=== PATIENT | female | born 1935 | race Caucasian/White ===

== ENCOUNTER 2017-02-22 17:27 | Inpatient (IN) | payer MEDICARE ==
[~2017-02-22] VITALS: Ht 160 cm; Wt 85.3 kg
--- NOTE | 2017-02-22 17:27 | NUR ---
[facility]LER PERES FROM [facility] PULLED OUT GTUBE SINCE 10 AM PER SNF. NAD NOTED. PT ON VENTILATOR, RT AT BEDSIDE. MD AT BEDSIDE. PT PLACED ON MONITOR.
[2017-02-22 17:45] LABS: BASOPHILS # (AUTO) 0.1 /CMM (0.0-0.2); BASOPHILS % (AUTO) 0.3 % (0.0-2.0); EOSINOPHILS # (AUTO) 0.6 /CMM (0.0-0.7); EOSINOPHILS % (AUTO) 3.5 % (0.0-6.0); HEMATOCRIT 30 % (33-45); HEMOGLOBIN 9.8 g/dL (11.5-14.8); LYMPHOCYTES # (AUTO) 1.3 /CMM (0.8-4.8); LYMPHOCYTES % (AUTO) 7.8 % (20.0-44.0); MEAN CORPUSCULAR HEMOGLOBIN 31 PG (26.0-33.0); MEAN CORPUSCULAR HGB CONC 32 g/dl (31.0-36.0); MEAN CORPUSCULAR VOLUME 94 fL (82-100); MONOCYTES # (AUTO) 0.8 /CMM (0.1-1.30); MONOCYTES % (AUTO) 4.6 % (2.0-12.0); NEUTROPHILS % (AUTO) 83.8 % (43.0-81.0); PLATELET COUNT (AUTO) 448 /CMM (150-450); RED BLOOD CELL COUNT(AUTO) 3.21 MIL/uL (4.0-5.2); WHITE BLOOD COUNT (AUTO) 16.8 K/uL (4.3-11.0)
[2017-02-22 17:55] LABS: CALCIUM, SERUM 9.7 mg/dL (8.5-10.1); CARBON DIOXIDE 27 mmol/L (21-32); CHLORIDE 100 mmol/L (98-107); CREATININE 2.3 mg/dL (0.6-1.3); GLUCOSE 90 mg/dL (74-106); POTASSIUM 3.1 mmol/L (3.5-5.1); SODIUM SERUM 134 mmol/L (136-145); UREA NITROGEN, BLOOD 23 mg/dL (7-18)
[2017-02-22 17:56] VITALS: BP 141/67
[2017-02-22 17:59] LABS: INR 1.03 (0.87-1.13); PROTHROMBIN TIME 10.7 SECS (9.5-12.7)
[2017-02-22] MEDS ORDERED: IV NS 0.9% 500 ML BAG IV ONE (18:00)
[2017-02-22 18:01] LABS: ALANINE AMINOTRANSFERASE 14 U/L (12-78); ALBUMIN 2.6 g/dL (3.4-5.0); ALKALINE PHOSPHATASE 101 U/L (46-116); ASPARTATE AMINOTRANSFERASE 23 U/L (15-37); BILIRUBIN,DIRECT 0.1 mg/dL (0.0-0.2); BILIRUBIN,TOTAL 0.5 mg/dL (0.2-1.0); TOTAL PROTEIN, SERUM 8.1 g/dL (6.4-8.2)
[2017-02-22] MEDS ORDERED: FAMO20TA8 GT (18:22)
[2017-02-22] MEDS ORDERED: CLON0.5T GT (18:22)
[2017-02-22] MEDS ORDERED: BLOO-668 IN (18:22)
[2017-02-22] MEDS ORDERED: LORA0.5T GT (18:22)
[2017-02-22] MEDS ORDERED: DIPH25CA6 GT (18:22)
[2017-02-22] MEDS ORDERED: POLY17PO4 GT (18:22)
[2017-02-22] MEDS ORDERED: FLUO-120 GT (18:22)
[2017-02-22] MEDS ORDERED: AMIN30LI4 GT (18:22)
[2017-02-22] MEDS ORDERED: INSU100I4 SQ (18:22)
[2017-02-22] MEDS ORDERED: FOLI1TAB16 GT (18:22)
[2017-02-22] MEDS ORDERED: OLAN2.5T3 GT (18:22)
[2017-02-22] MEDS ORDERED: ACET160S2 GT (18:22)
[2017-02-22] MEDS ORDERED: FOLI0.8T23 GT (18:22)
[2017-02-22] MEDS ORDERED: IPRA3AMP IH (18:22)
[2017-02-22] MEDS ORDERED: ACID1TAB12 GT (18:22)
--- NOTE | 2017-02-22 18:30 | NUR ---
RE-INSERTED IV ON R AC AFTER PT PULLING IT OUT. PATENT AND FLUSHING WELL.
--- NOTE | 2017-02-22 18:44 | NUR ---
CALLED [facility], BULLION WEIGHER WAS PAGED.
--- NOTE | 2017-02-22 19:10 | NUR ---
assumed care: pt sitting in bed, eyes open spontaneous, ventilated pt o2 40%, tV 600, peep 5.0, unlabored, NAD noted at this time, updated on plan of care
--- NOTE | 2017-02-22 19:40 | NUR ---
REPORT CALLED TO [facility] ETIENNE. WILL TRANSPORT PT VIA ACLS PROTOCOL.
[2017-02-22 20:00] VITALS: BP 139/80
--- NOTE | 2017-02-22 20:00 | NUR ---
RN ADMITTING TELE NOTES RECEIVED 81 YR OLD FEMALE FROM ER, ON VDRF, AC 10, TV 600, FIO2 40 AND PEEP OF 5, AOX1, NON VERBAL ANXIOUS PULLING ON LIFE SUSTAINING EQUIPMENT AND SCRATCHING GENERAL BODY CAUSING SKIN IRRITATION. NO SIGN OF FACIAL GRIMANCING NOTED, VS STABLE, WITH RCW HD CATH, WELL SECURED PULLED OUT RAC 18 G UPON ADMITTION, RE INSERTED ON LH 22 G AND RH 22 G, WELL SECURED AND PATENT. HEAD TO TOE ASSESSMENT DONE, WITH SKIN ISSUES NOTED AND PICTURES TAKEN AND FILED. PT S/P GT DISLODGEMENT DR OTERO NOTIFIED AND ADMITTING ORDERS OBTAINED. ON NS @50 ML/HR WELL KETAN NO S/S OF FLUID VOL EXCESS, NO INFILTRATION. FAMILY DAUGHTER NOTIFIED. PT PLACED ON SOFT BI WRIST RESTRAIN AND RELEASED PER PROTOCOL FOR PROPER ROM AND CIRCULATION. ALL LAB ORDERS CARRIED WELL GLUOCOSE MONITORING ORDERED. SAFETY MEASURES IN PLACE, ALL NEEDS MET, WILL TO MONITOR.
[2017-02-22 20:07] VITALS: BP 130/76
--- NOTE | 2017-02-22 21:00 | NUR ---
UNDERGROUND SUPERVISOR NOTES RECEIVED ORDER FROM ER, FROM DR. Anh QUINONEZ FOR THE PATIENT'S EMPIRIC IV ATB. ORDER NOTED AND CARRIED OUT. WILL ADMINISTER ORDERED.
[2017-02-22] MEDS ORDERED: LEVOFLOXACIN 750 MG /D5W 150ML 150 ML IV ONE (21:21)
[2017-02-22] MEDS ORDERED: CLINDAMYCIN IV RTU IN D5W 900 MG/50 ML PIGGYBACK IV ONE (21:30)
[2017-02-22] MEDS ORDERED: AZTREONAM 2 G in IV NS 0.9% 100 ML IV ONE (21:30)
[2017-02-22] MEDS ORDERED: LEVOFLOXACIN 750 MG /D5W 150ML 750 MG in PREMIX 1 EA IV ONE (21:30)
[2017-02-22] MEDS ORDERED: ZIPRASIDONE MESYLATE 20 MG/VIAL VIAL IM PRN (22:30)
[2017-02-22] MEDS ORDERED: DEXTROSE 50%-WATER 50 ML DISP.SYRIN IV PRN (22:30)
[2017-02-22] MEDS ORDERED: INSULIN REGULAR, HUMAN 100 UNIT/ML 3 ML VIAL SQ PRN (22:30)
[2017-02-22] MEDS ORDERED: AZTREONAM 1 G VIAL ONE (22:45)
[2017-02-22] MEDS ORDERED: CLINDAMYCIN 900 MG/6 ML VIAL ONE (22:45)
[2017-02-22] MEDS ORDERED: diphenhydrAMINE HCL 50 MG/ML VIAL ONE (23:25)
[2017-02-22] MEDS: diphenhydrAMINE HCL 50 MG/ML VIAL IV PRN (23:26)
[2017-02-22] MEDS: IV NS 0.9% 1,000 ML IV PRN (23:26)
[2017-02-22] MEDS: BLOOD SUGAR DIAGNOSTIC 1 EACH STRIP IN SCH (23:32)
[2017-02-23] VITALS: BP 109/59
[2017-02-23 04:00] VITALS: BP_SYST 108; BP_SYST 109; BP_DIAS 59; BP_DIAS 63
--- NOTE | 2017-02-23 06:23 | NUR ---
CABLE INSTALLER REPAIRER CLOSING NOTE ENDORSED PT ASLEEP IN BED HOB ELEVATED, NO SIGN OF DISTRESS, ALL ADMITTING ORDERS CARRIED OUT, WILL ENDORSE FOR DVT PUMP TO BE DELIVERED BY CS, FOR AM NURSE TO F/U.
[2017-02-23 07:40] LABS: BASOPHILS % (AUTO) 0.1 % (0.0-2.0); EOSINOPHILS # (AUTO) 0.4 /CMM (0.0-0.7); EOSINOPHILS % (AUTO) 2.8 % (0.0-6.0); HEMATOCRIT 29 % (33-45); LYMPHOCYTES # (AUTO) 1.3 /CMM (0.8-4.8); MEAN CORPUSCULAR HEMOGLOBIN 31 PG (26.0-33.0); MEAN CORPUSCULAR HGB CONC 32 g/dl (31.0-36.0); MEAN CORPUSCULAR VOLUME 97 fL (82-100); MONOCYTES # (AUTO) 1.2 /CMM (0.1-1.30); NEUTROPHILS # (AUTO) 11.8 /CMM (1.8-8.9); NEUTROPHILS % (AUTO) 80.1 % (43.0-81.0); PLATELET COUNT (AUTO) 385 /CMM (150-450); RDW COEFFICIENT OF VARIATION 19.9 (11.5-15.0); RED BLOOD CELL COUNT(AUTO) 2.94 MIL/uL (4.0-5.2); WHITE BLOOD COUNT (AUTO) 14.7 K/uL (4.3-11.0)
[2017-02-23 07:52] LABS: INR 1.08 (0.87-1.13); PROTHROMBIN TIME 11.2 SECS (9.5-12.7)
[2017-02-23 07:58] LABS: CALCIUM, SERUM 9.6 mg/dL (8.5-10.1); CARBON DIOXIDE 23 mmol/L (21-32); CHLORIDE 102 mmol/L (98-107); CREATININE 2.8 mg/dL (0.6-1.3); GLUCOSE 89 mg/dL (74-106); MAGNESIUM 2.3 mg/dL (1.8-2.4); PHOSPHORUS 2.9 mg/dL (2.5-4.9); POTASSIUM 3.7 mmol/L (3.5-5.1); SODIUM SERUM 136 mmol/L (136-145); UREA NITROGEN, BLOOD 29 mg/dL (7-18)
[2017-02-23 08:00] VITALS: BP 117/60
[2017-02-23] MEDS: BLOOD SUGAR DIAGNOSTIC 1 EACH STRIP IN SCH ×4 (08:01→22:57)
--- NOTE | 2017-02-23 11:00 | NUR ---
MANAGED CARE ANALYST NOTE SPOKE TO AND GOT TELEPHONE CONSENT FOR EGD AND PEG PLACEMENT WELL BLOOD TRANSFUSION IF NEEDED. VERIFIED WITH OSMEL Francis R.N.
[2017-02-23 12:00] VITALS: BP 140/55
[2017-02-23] MEDS ORDERED: HALOPERIDOL LACTATE INJ 5 MG/ML VIAL IM PRN (12:00)
[2017-02-23 16:00] VITALS: BP 147/55
[2017-02-23 20:00] VITALS: BP_SYST 142; BP_SYST 148; BP_DIAS 54; BP_DIAS 69
--- NOTE | 2017-02-23 20:30 | NUR ---
RN ADMITTING TELE NOTES RECEIVED PT ON VDRF, AC 10, TV 600, FIO2 40 AND PEEP OF 5, AOX1, NON VERBAL ANXIOUS PULLING ON LIFE SUSTAINING EQUIPMENT AND SCRATCHING GENERAL BODY CAUSING SKIN IRRITATION. NO SIGN OF FACIAL GRIMANCING NOTED, VS STABLE, WITH RCW HD CATH, WELL SECURED , WITH LH 22 G AND RH 22 G, WELL SECURED AND PATENT. PT ON NS @50 ML/HR WELL KETAN NO S/S OF FLUID VOL EXCESS, NO INFILTRATION, VS STABLE. Addendum: 02/24/17 at 0112 by KYLE THURSTON RN JAVA FRONT END WEB DEVELOPER INITIAL NOTES
[2017-02-23] MEDS: IV NS 0.9% 1,000 ML IV PRN (22:57)
[2017-02-24] VITALS (10 sets, daily range): BP systolic 101–164; BP diastolic 43–69
--- NOTE | 2017-02-24 06:30 | NUR ---
RN CLOSING TELE NOTES ENDORSED PT ON VDRF, AC 10, TV 600, FIO2 40 AND PEEP OF 5, AOX1, NON VERBAL ANXIOUS PULLING ON LIFE SUSTAINING EQUIPMENT AND SCRATCHING GENERAL BODY CAUSING SKIN IRRITATION. NO SIGN OF FACIAL GRIMANCING NOTED, VS STABLE, WITH RCW HD CATH, WELL SECURED , WITH LH 22 G AND RH 22 G, WELL SECURED AND PATENT. PT ON NS @50 ML/HR WELL KETAN NO S/S OF FLUID VOL EXCESS, NO INFILTRATION, VS STABLE FOR EGD AND PEG IN AT 9AM WITH DR KLINE. WILL ENDORSE TO AM NURSE TO F/U.
[2017-02-24] MEDS: BLOOD SUGAR DIAGNOSTIC 1 EACH STRIP IN SCH ×4 (06:49→22:17)
[2017-02-24 07:11] LABS: BASOPHILS % (AUTO) 0.2 % (0.0-2.0); EOSINOPHILS # (AUTO) 0.3 /CMM (0.0-0.7); EOSINOPHILS % (AUTO) 2.1 % (0.0-6.0); HEMATOCRIT 31 % (33-45); HEMOGLOBIN 9.8 g/dL (11.5-14.8); LYMPHOCYTES # (AUTO) 1.2 /CMM (0.8-4.8); LYMPHOCYTES % (AUTO) 9.6 % (20.0-44.0); MEAN CORPUSCULAR HEMOGLOBIN 31 PG (26.0-33.0); MEAN CORPUSCULAR HGB CONC 32 g/dl (31.0-36.0); MEAN CORPUSCULAR VOLUME 97 fL (82-100); MONOCYTES % (AUTO) 7.6 % (2.0-12.0); NEUTROPHILS # (AUTO) 10.5 /CMM (1.8-8.9); NEUTROPHILS % (AUTO) 80.5 % (43.0-81.0); PLATELET COUNT (AUTO) 414 /CMM (150-450); RED BLOOD CELL COUNT(AUTO) 3.21 MIL/uL (4.0-5.2); WHITE BLOOD COUNT (AUTO) 13.1 K/uL (4.3-11.0)
[2017-02-24 07:40] LABS: CALCIUM, SERUM 9.9 mg/dL (8.5-10.1); CARBON DIOXIDE 22 mmol/L (21-32); CHLORIDE 104 mmol/L (98-107); CREATININE 3.5 mg/dL (0.6-1.3); GLUCOSE 77 mg/dL (74-106); MAGNESIUM 2.4 mg/dL (1.8-2.4); PHOSPHORUS 3.7 mg/dL (2.5-4.9); POTASSIUM 3.8 mmol/L (3.5-5.1); SODIUM SERUM 139 mmol/L (136-145); UREA NITROGEN, BLOOD 36 mg/dL (7-18)
--- NOTE | 2017-02-24 10:33 | NUR ---
RN NOTE PT HAD EGD WITH PEG TUBE PLACED AT BEDSIDE, TOLERATED WELL, PT SUCTIONED, ON MECH VENT TOLERATES WELL, VS STABLE. PER DR KLINE ITS OKAY TO RESUME MEDS AND TUBE FEEDING. WILL MONITOR AND CARRY OUT ORDERS.
[2017-02-24] MEDS ORDERED: EPOETIN ALFA (10,000 UNIT) 10,000 UNIT/ML VIAL IV ONE (12:00)
[2017-02-24] MEDS ORDERED: ACETAMINOPHEN LIQUID 325 MG/10.1 ML UDC GT PRN (13:00)
[2017-02-24] MEDS ORDERED: INSULIN ASPART HUMALOG/NOVOLOG 100 UNIT/ML CARTRIDGE SQ PRN (13:00)
[2017-02-24] MEDS ORDERED: POLYETHYLENE GLYCOL 3350 17 GM POWD.PACK GT PRN (13:00)
[2017-02-24] MEDS: diphenhydrAMINE HCL 50 MG/ML VIAL IV PRN (13:21)
[2017-02-24] MEDS ORDERED: RENAL NOVASOURCE 1,000 ML BOTTLE GT PRN (13:30)
[2017-02-24] MEDS: ALBUTEROL FS 2.5 MG/0.5 ML VIAL.NEB NEB SCH ×2 (13:47→19:26)
[2017-02-24] MEDS: IPRATROPIUM NEB FS 0.5 MG/2.5 ML AMPUL.NEB NEB SCH ×2 (13:47→19:26)
[2017-02-24] MEDS ORDERED: BLOOD SUGAR DIAGNOSTIC 1 EACH STRIP IN SCH (18:00)
[2017-02-24] MEDS: OLANZAPINE 2.5 MG TABLET GT SCH (18:06)
[2017-02-24] MEDS: ACIDOPHILUS/BULGARICUS 1 EACH TAB.CHEW GT SCH (18:06)
--- NOTE | 2017-02-24 18:52 | NUR ---
ABG ORDER PLACED @14:26 WAS NOT DONE YET. ATTEMPT TO DO ABG BUT FAMILY MEMBER REFUSED AT THIS TIME. RN ROCKY NOTIFIED. NO RESPIRATORY DISTRESS AT THIS TIME , SPO2 100%
--- NOTE | 2017-02-24 19:26 | NUR ---
PT RECEIVED TRACH ON VENT. SUCTIONED SMALL AMOUNT OF WHITE THIN SECRETIONS. VENT ALARMS SET AND AUDIBLE. AMBU BAG AT BEDSIDE. VENT PLUGGED INTO RED OUTLET. NO RESPIRATORY DISTRESS AT THIS TIME, WILL CONTINUE TO MONITOR THE PT.
--- NOTE | 2017-02-24 21:04 | NUR ---
received pt from day shift, alert, follows simple commands, SR, on the vent, lungs partially congested, no edema, GT to feeding tolerates well, anuric HD pt, BL restraints, v/s stable, no pain, family at the bedside.
[2017-02-24] MEDS: LORAZEPAM 0.5 MG TABLET GT PRN (22:15)
[2017-02-24] MEDS: MUPIROCIN OINT 2% 22 GM TUBE SCH (22:16)
[2017-02-24] MEDS: clonazePAM 0.5 MG TABLET GT PRN (23:15)
[2017-02-25] VITALS (7 sets, daily range): BP systolic 111–158; BP diastolic 43–70
[2017-02-25] MEDS: IPRATROPIUM NEB FS 0.5 MG/2.5 ML AMPUL.NEB NEB SCH ×4 (01:34→20:21)
[2017-02-25] MEDS: ALBUTEROL FS 2.5 MG/0.5 ML VIAL.NEB NEB SCH ×4 (01:34→20:21)
--- NOTE | 2017-02-25 04:19 | NUR ---
pt is resting in the bed, no acute distress overnight, v/s stable, no pain, pt cleaned, changed and repositioned q2hrs.
[2017-02-25] MEDS: BLOOD SUGAR DIAGNOSTIC 1 EACH STRIP IN SCH ×4 (07:30→22:00)
[2017-02-25] MEDS: OLANZAPINE 2.5 MG TABLET GT SCH ×2 (10:41→17:46)
[2017-02-25] MEDS: ACIDOPHILUS/BULGARICUS 1 EACH TAB.CHEW GT SCH ×2 (10:41→17:45)
[2017-02-25] MEDS: VIT B CMPLX 3/FA/VIT C/BIOTIN 1 TAB TABLET PO SCH (10:41)
[2017-02-25] MEDS: FLUOXETINE HCL 20 MG CAPSULE GT SCH (10:41)
[2017-02-25] MEDS: FAMOTIDINE (20 MG) 20 MG TABLET GT SCH (10:42)
[2017-02-25] MEDS: diphenhydrAMINE HCL 25 MG CAPSULE PO PRN ×2 (10:42→17:45)
[2017-02-25] MEDS: FOLIC ACID 1 MG TABLET GT SCH (10:42)
[2017-02-25] MEDS: PROSOURCE / PROSTAT (PYXIS) 30 ML UDC GT SCH ×2 (10:42→17:46)
[2017-02-25] MEDS: MUPIROCIN OINT 2% 22 GM TUBE SCH ×2 (12:21→21:46)
[2017-02-25] MEDS: RENAL NOVASOURCE 1,000 ML BOTTLE GT PRN (17:46)
[2017-02-25] MEDS: LORAZEPAM 0.5 MG TABLET GT PRN (22:09)
--- NOTE | 2017-02-25 22:27 | NUR ---
Daughter at bedside has decided that since she is there she would remove the restraints on left arm,no problems.
--- NOTE | 2017-02-25 22:54 | NUR ---
Medicate patient with Klonopin 0.5 mg via GT,tolerated well
--- NOTE | 2017-02-25 22:54 | NUR ---
Daughter is requesting patient gets something else after the Ativan I gave her to relax her,checking to see what patient gets
--- NOTE | 2017-02-25 23:40 | NUR ---
About this time patient family member said she was tired and was going home to rest.She did look tired but also appeared agitated and frustrated.I told her ok that she probably needed some rest.She then left.
[2017-02-26] VITALS: BP 153/68
--- NOTE | 2017-02-26 00:30 | NUR ---
Patient was restless for a while but eventually calm down and is now calm,no problems.
[2017-02-26] MEDS: ALBUTEROL FS 2.5 MG/0.5 ML VIAL.NEB NEB SCH ×4 (02:19→19:50)
[2017-02-26] MEDS: IPRATROPIUM NEB FS 0.5 MG/2.5 ML AMPUL.NEB NEB SCH ×4 (02:19→19:50)
[2017-02-26 04:00] VITALS: BP 134/90
--- NOTE | 2017-02-26 04:00 | NUR ---
Resting quietly,no problems
[2017-02-26] MEDS: BLOOD SUGAR DIAGNOSTIC 1 EACH STRIP IN SCH ×4 (07:30→20:41)
--- NOTE | 2017-02-26 07:43 | NUR ---
Received john pt on mechanical vent. Pt john is secure. Vent is plugged into a red outlet, alarms are set and audible, and BVM is at bedside. Addendum: 02/26/17 at 0744 by CAREN PADILLA RT Amended: Links added.
[2017-02-26 08:00] VITALS: BP 153/65
--- NOTE | 2017-02-26 08:00 | NUR ---
LICENSED PSYCHOLOGIST DIRECTOR NOTE PATIENT IN BED, RESTING COMFORTABLY, ON VENT TO TRACH SETTING ORDERED , AMBU BAG AT HOB AT ALL TIME , PATIENT ALERT , AWAKE , WITH G TUBE FEEDING ORDERED, NO RESIDUAL NOTED , KEEP HOB ELEVATED AT ALL TIME , REFUSED TO CHECK ACCU CHECK , RT UPPER ARM HL INTACT , NO S\S INFECTION BED IN LOWEST AND LOCKED POSITION , CALL LIGHT WITHIN REACH , PLAN OF CARE DISCUSSED WITH PATIENT . ON SOFT RESTRAIN ORDERED , ON KCI MATRES ROM DONE WILL CONT TO MONITOR CLOSELY
[2017-02-26] MEDS: ACIDOPHILUS/BULGARICUS 1 EACH TAB.CHEW GT SCH ×2 (09:05→16:35)
[2017-02-26] MEDS: VIT B CMPLX 3/FA/VIT C/BIOTIN 1 TAB TABLET PO SCH (09:06)
[2017-02-26] MEDS: FLUOXETINE HCL 20 MG CAPSULE GT SCH (09:06)
[2017-02-26] MEDS: FAMOTIDINE (20 MG) 20 MG TABLET GT SCH (09:06)
[2017-02-26] MEDS: FOLIC ACID 1 MG TABLET GT SCH (09:07)
[2017-02-26] MEDS: OLANZAPINE 2.5 MG TABLET GT SCH ×2 (09:07→16:35)
[2017-02-26] MEDS: MUPIROCIN OINT 2% 22 GM TUBE SCH ×2 (09:08→20:30)
[2017-02-26] MEDS: PROSOURCE / PROSTAT (PYXIS) 30 ML UDC GT SCH ×2 (09:09→16:34)
[2017-02-26 12:00] VITALS: BP 150/65
--- NOTE | 2017-02-26 12:00 | NUR ---
MILL OILER NOTE ALL NEEDS ATTENDED, NOT IN ACUTE DISTRESS .TRACH CARE DONE , KEEP CLEAN ,REPOSITION Q2 HOUR
[2017-02-26 12:35] LABS: BASOPHILS % (AUTO) 0.3 % (0.0-2.0); EOSINOPHILS # (AUTO) 0.5 /CMM (0.0-0.7); EOSINOPHILS % (AUTO) 3.9 % (0.0-6.0); HEMATOCRIT 29 % (33-45); HEMOGLOBIN 9.3 g/dL (11.5-14.8); LYMPHOCYTES # (AUTO) 1.5 /CMM (0.8-4.8); MEAN CORPUSCULAR HEMOGLOBIN 31 PG (26.0-33.0); MEAN CORPUSCULAR HGB CONC 32 g/dl (31.0-36.0); MEAN CORPUSCULAR VOLUME 96 fL (82-100); MONOCYTES # (AUTO) 1.1 /CMM (0.1-1.30); MONOCYTES % (AUTO) 8.9 % (2.0-12.0); NEUTROPHILS # (AUTO) 9.5 /CMM (1.8-8.9); NEUTROPHILS % (AUTO) 74.9 % (43.0-81.0); PLATELET COUNT (AUTO) 414 /CMM (150-450); RDW COEFFICIENT OF VARIATION 19.9 (11.5-15.0); RED BLOOD CELL COUNT(AUTO) 3.05 MIL/uL (4.0-5.2); WHITE BLOOD COUNT (AUTO) 12.7 K/uL (4.3-11.0)
[2017-02-26 12:51] LABS: ALANINE AMINOTRANSFERASE 11 U/L (12-78); ALBUMIN 2.2 g/dL (3.4-5.0); ALKALINE PHOSPHATASE 101 U/L (46-116); ASPARTATE AMINOTRANSFERASE 22 U/L (15-37); BILIRUBIN,TOTAL 0.3 mg/dL (0.2-1.0); CARBON DIOXIDE 28 mmol/L (21-32); CHLORIDE 110 mmol/L (98-107); CREATININE 3.6 mg/dL (0.6-1.3); GLUCOSE 128 mg/dL (74-106); MAGNESIUM 2.4 mg/dL (1.8-2.4); POTASSIUM 3.5 mmol/L (3.5-5.1); SODIUM SERUM 146 mmol/L (136-145); UREA NITROGEN, BLOOD 51 mg/dL (7-18)
--- NOTE | 2017-02-26 15:52 | NUR ---
KETTLE COORDINATOR NOTE PER DR GU ORDER OK TO DISCHARGE TO SNF ,SPOKE WITH PATIENT SCHEDULER , STATED WILL OK BACK FOR BED ARRANGEMENT
[2017-02-26 16:00] VITALS: BP_SYST 105; BP_SYST 114; BP_DIAS 45; BP_DIAS 46
--- NOTE | 2017-02-26 17:14 | NUR ---
FLASH DEVELOPER NOTE UNABLE TO RELEASE SOFRA RESTRAIN, STILL TRYING TO REMOVE ALL LINES
--- NOTE | 2017-02-26 17:39 | NUR ---
KENNEL AIDE NOTE SPOKE WITH CHIEF GROWTH OFFICER STATED THAT DISCHARGE TO SNF MOST LIKELY WILL BE TOMORROW ,NO BED AVAILABLE
--- NOTE | 2017-02-26 19:35 | NUR ---
GREY STOCK RECORDER INITIAL NOTE PT RECEIVED IN NO ACUTE DISTRESS AT THIS TIME. FAMILY IS AT BEDSIDE BUT STATED SHE DID NOT WANT PT TO BE BOTHERED SINCE SHE WAS SLEEPING. ON TELE WITH SR. GT RUNNING [employer] Bill @30CC/HR TOLERATING. RIGHT AC 22G HL. VENT/TRACH SETTINGS TOLERATED ORDERED. COMFORT AND SAFETY MEASURES TO BE ENSURED DURING THE SHIFT. WILL CONTINUE TO MONITOR FOR ANY CHANGES DURING THE SHIFT.
[2017-02-26 20:00] VITALS: BP 160/59
--- NOTE | 2017-02-26 20:55 | NUR ---
RN NOTE FAMILY REFUSES ACCUCHECK DUE TO NOT HAVING DM HX. LAST COVERAGE WAS DONE 31 HOURS AGO 2 UNITS. WILL HOLD BUT CONTINUE TO MONITOR
[2017-02-27] VITALS (7 sets, daily range): BP systolic 98–152; BP diastolic 43–67
[2017-02-27] MEDS: IPRATROPIUM NEB FS 0.5 MG/2.5 ML AMPUL.NEB NEB SCH ×4 (02:03→19:37)
[2017-02-27] MEDS: ALBUTEROL FS 2.5 MG/0.5 ML VIAL.NEB NEB SCH ×4 (02:04→19:37)
--- NOTE | 2017-02-27 07:05 | NUR ---
RN INITIAL NOTE PATIENT RECEIVED IN BED, RESTING COMFORTABLY. NO S/S OF PAIN OR DISCOMFORT. PATIENT IS NON VERBAL. HAS TRACH SHILEY #6, NO S/S OF RESPIRATORY DISTRESS OR SOB. TOLERATING VENT SETTINGS WELL. GTUBE SITE FLUSHED, PATENT. PLACEMENT VERIFIED. TOLERATING GTF WELL. SKIN IS WARM AND DRY TO TOUCH. IV SITE FLUSHED, PATENT. SAFETY PRECAUTIONS IMPLEMENTED. BED IN LOCKED, LOW POSITION WITH TWO SIDE RAILS UP. CALL LIGHT WITHIN EASY REACH. WILL CONTINUE TO MONITOR CLOSELY.
[2017-02-27] MEDS: BLOOD SUGAR DIAGNOSTIC 1 EACH STRIP IN SCH ×4 (08:49→21:55)
[2017-02-27] MEDS: FOLIC ACID 1 MG TABLET GT SCH (08:50)
[2017-02-27] MEDS: FLUOXETINE HCL 20 MG CAPSULE GT SCH (08:50)
[2017-02-27] MEDS: PROSOURCE / PROSTAT (PYXIS) 30 ML UDC GT SCH ×2 (08:50→18:23)
[2017-02-27] MEDS: ACIDOPHILUS/BULGARICUS 1 EACH TAB.CHEW GT SCH ×2 (08:50→18:23)
[2017-02-27] MEDS: OLANZAPINE 2.5 MG TABLET GT SCH ×2 (08:50→18:23)
[2017-02-27] MEDS: VIT B CMPLX 3/FA/VIT C/BIOTIN 1 TAB TABLET PO SCH (08:50)
[2017-02-27] MEDS: FAMOTIDINE (20 MG) 20 MG TABLET GT SCH (08:50)
[2017-02-27] MEDS: MUPIROCIN OINT 2% 22 GM TUBE SCH ×2 (08:51→21:42)
[2017-02-27] MEDS: RENAL NOVASOURCE 1,000 ML BOTTLE GT PRN (14:42)
--- NOTE | 2017-02-27 19:00 | NUR ---
Rn Notes Received patient awake,alert,a little anxious/restless, daughter at bedside ,supportive of patient.Patient with trache #6 on the ventilator on AC mode,tolerating well,,No SOB .On bilateral soft wrist restraints (patient with hx of pulling out tubes).Peg tube with on going feeding tolerating well .Dialysis catheter right subclavian .Comfort care done,needs attended.
--- NOTE | 2017-02-27 19:50 | NUR ---
ENGINE TESTER INITIAL NOTE PT RECEIVED IN NO ACUTE DISTRESS AT THIS TIME. FAMILY IS AT BEDSIDE. PT IS ON TELE WITH SR 82. A/O X1 AND ON BILATERAL UPPER EXTREMITY SOFT RESTRAINTS ON DUE TO PT ATTEMPTING TO PULL LINES. GT RUNNING NOVASOURCE @30CC/HR TOLERATING WITH NO RESIDUAL. RIGHT AC 22G HL. VENT/TRACH SETTINGS TOLERATED ORDERED. COMFORT AND SAFETY MEASURES TO BE ENSURED DURING THE SHIFT. WILL CONTINUE TO MONITOR FOR ANY CHANGES DURING THE SHIFT.
[2017-02-27] MEDS: LORAZEPAM 0.5 MG TABLET GT PRN (20:55)
--- NOTE | 2017-02-27 23:00 | NUR ---
Rn Notes Stable ,post HD .PM care/bath done ,tolerated well.Trache care done.Remains stable ,no SOB.
[2017-02-27] MEDS: clonazePAM 0.5 MG TABLET GT PRN (23:16)
[2017-02-28] VITALS: BP 130/49
[2017-02-28] MEDS: IPRATROPIUM NEB FS 0.5 MG/2.5 ML AMPUL.NEB NEB SCH ×3 (01:09→14:09)
[2017-02-28] MEDS: ALBUTEROL FS 2.5 MG/0.5 ML VIAL.NEB NEB SCH ×3 (01:09→14:09)
[2017-02-28 04:00] VITALS: BP 102/57
--- NOTE | 2017-02-28 06:00 | NUR ---
RN NOTES Remains stable,awake,alert,tolerating vent settings,no SOB noted.Feeding tolerated.continue contact isolation,continue restraints for now.
[2017-02-28 08:00] VITALS: BP 139/47
--- NOTE | 2017-02-28 08:00 | NUR ---
LEAD LEVEL DESIGNER NOTE PT RECEIVED ON PT A/O X 1. TRACH TO VENT SETTING, AMBU BAG AT BEDSIDE WITH GT FEEDING TOLERATED, NO RESIDUAL NOTED, KEEP HEAD OF THE BED ELEVATED, RIGHT AC 22G IS PATENT AND INTACT. RIGHT CHEST WALL HD CATHETER HAS NO SIGNS OF INFECTION OR REDNESS. BED LOCK IN LOW POSITION CALL LIGHT IS WITHIN REACH, CONTINUE FOR SELF RESTRAINTS FOR PTS SAFETY. WILL CONTINUE TO MONITOR
[2017-02-28] MEDS: ACIDOPHILUS/BULGARICUS 1 EACH TAB.CHEW GT SCH ×2 (08:09→16:37)
[2017-02-28] MEDS: FLUOXETINE HCL 20 MG CAPSULE GT SCH (08:09)
[2017-02-28] MEDS: VIT B CMPLX 3/FA/VIT C/BIOTIN 1 TAB TABLET PO SCH (08:09)
[2017-02-28] MEDS: FAMOTIDINE (20 MG) 20 MG TABLET GT SCH (08:10)
[2017-02-28] MEDS: OLANZAPINE 2.5 MG TABLET GT SCH ×2 (08:10→16:37)
[2017-02-28] MEDS: FOLIC ACID 1 MG TABLET GT SCH (08:10)
[2017-02-28] MEDS: PROSOURCE / PROSTAT (PYXIS) 30 ML UDC GT SCH (08:12)
[2017-02-28] MEDS: MUPIROCIN OINT 2% 22 GM TUBE SCH (08:12)
[2017-02-28] MEDS: BLOOD SUGAR DIAGNOSTIC 1 EACH STRIP IN SCH ×3 (08:54→16:47)
--- NOTE | 2017-02-28 11:30 | NUR ---
TIMBER MANAGEMENT PROFESSOR NOTE DR HE SEEN PT. ORDER IS OKAY TO DC TO SNF. SPOKED WITH HARMAN CARD PAINTER, STATED WORKING ON IT.
[2017-02-28 12:00] VITALS: BP 126/47
[2017-02-28] MEDS: LORAZEPAM 0.5 MG TABLET GT PRN (12:52)
--- NOTE | 2017-02-28 13:05 | NUR ---
RN NOTES PT AGITATED, ATIVAN PRN WAS GIVEN.BP IS 126/47
--- NOTE | 2017-02-28 13:22 | NUR ---
MEDICAL DRIVER NOTES WE ARE TRYING TO REMOVE THE SOFT RESTRAINTS, PT. STILL TRYING TO REMOVE ALL LINES AND TRACH
[2017-02-28 16:00] VITALS: BP 119/40
--- NOTE | 2017-02-28 16:27 | NUR ---
PASTRY COOK HELPER NOTE CALLED TO SNF, SPOKE WITH AURY MOSER REPORT GIVEN
--- NOTE | 2017-02-28 18:48 | NUR ---
WORKFORCE MANAGEMENT MANAGER NOTES HEPLOCK REMOVE, NO S/S INFECTION , NO REDNESS, NO BLEEDING. AMBULANZ AT BEDSIDE, REPORT GIVEN. TELE MONITOR REMOVED. WENT TO SNF IN STABLE CONDITION. VITAL SIGNS TAKEN AND STABLE. NO BELONGINGS AT BEDSIDE. MADE AWARE OF THE TRANSFER.
[2017-03-01] MEDS ORDERED: PROSOURCE / PROSTAT (PYXIS) 30 ML UDC GT SCH (09:00)
== END 2017-02-28 19:00 | DRG 393 ==
LOC: ER 17:35 → TELE1 20:30
PROVIDERS: ADMIT Internal Medicine; ATTEND Internal Medicine
PROC: 0DH63UZ Insertion of Feeding Device into Stomach, Percutaneous Approach (ICD-10-PCS; principal; 2017-02-22)
PROC: 5A1955Z Respiratory Ventilation, Greater than 96 Consecutive Hours (ICD-10-PCS; 2017-02-22)
PROC: 0DH63UZ Insertion of Feeding Device into Stomach, Percutaneous Approach (ICD-10-PCS; 2017-02-24)
PROC: 5A1D70Z Performance of Urinary Filtration, Intermittent, Less than 6 Hours Per Day (ICD-10-PCS; 2017-02-25)
DX: K94.23 Gastrostomy malfunction (principal); N18.6 End stage renal disease; J15.9 Unspecified bacterial pneumonia; Z99.11 Dependence on respirator [ventilator] status; I13.2 Hypertensive heart and chronic kidney disease with heart failure and with stage 5 chronic kidney disease, or end stage renal disease; J96.10 Chronic respiratory failure, unspecified whether with hypoxia or hypercapnia; J44.9 Chronic obstructive pulmonary disease, unspecified; R13.10 Dysphagia, unspecified; E11.22 Type 2 diabetes mellitus with diabetic chronic kidney disease; I11.0 Hypertensive heart disease with heart failure; Z99.2 Dependence on renal dialysis; Y83.9 Surgical procedure, unspecified as the cause of abnormal reaction of the patient, or of later complication, without mention of misadventure at the time of the procedure; Y82.9 Unspecified medical devices associated with adverse incidents; Y92.129 Unspecified place in nursing home as the place of occurrence of the external cause; K21.9 Gastro-esophageal reflux disease without esophagitis; K59.00 Constipation, unspecified; Z79.899 Other long term (current) drug therapy; I50.9 Heart failure, unspecified; Z88.1 Allergy status to other antibiotic agents; Z79.4 Long term (current) use of insulin; Z85.118 Personal history of other malignant neoplasm of bronchus and lung; I48.91 Unspecified atrial fibrillation; L98.9 Disorder of the skin and subcutaneous tissue, unspecified
CPT/HCPCS: 31720; 36415; 43246; 71010-TC; 80048-TC; 80053-TC; 80076-TC; 82272-TC; 82962-TC; 83735-TC; 84100-TC; 85025-TC; 85610-TC; 85730-TC; 86850-TC; 87040-TC; 87081-TC; 90935-TC; 94002-TC; 94003-TC; 94760-TC; 99082-TC; A4606; A6402; J0690; J0885; J1200; J1630; J1815; J1956; J2704; J3486; J3490; J7030; J7040; J7050; J7060; Q0163; Z7610

== ENCOUNTER 2017-03-01 10:03 | Emergency (ER) | payer MEDICARE ==
[~2017-03-01] VITALS: Ht 160 cm; Wt 79.4 kg
[~2017-03-01 10:03] MED LIST: ACET160S2 GT; ACID1TAB12 GT; AMIN30LI4 GT; BLOO-668 IN; CLON0.5T GT; DIPH25CA6 GT; FAMO20TA8 GT; FLUO-120 GT; FOLI0.8T23 GT; FOLI1TAB16 GT; INSU100I4 SQ; IPRA3AMP IH; LORA0.5T GT; OLAN2.5T3 GT; POLY17PO4 GT
--- NOTE | 2017-03-01 10:12 | NUR ---
JASPER FROM [facility] FOR GT REPLACEMENT, PER REPORT IT WAS DISLODGE THIS MORNING, MARQUEZ WAS PLACED TOB MAINTAIN PATENCY,. NO S/SX OF INFECTION AT THIS TIME,. PATIENT IS VENT/ TRACHE DEPENDENT. VSS
[2017-03-01 10:17] VITALS: BP 116/57
--- NOTE | 2017-03-01 10:27 | NUR ---
PT. PLACED INTO [facility] VENT VIA TRACH SIZE 6 SHILEY. VENT SETTINGS BELLOW PER RT TRANSPORTER: AC 10 VT 500 FIO2 35% PEEP +5 AMBMARCUSG @ HOB. Addendum: 03/01/17 at 1028 by JOSH PENA RT Amended: Links added.
--- NOTE | 2017-03-01 11:07 | NUR ---
[facility] CALLED,ETA 30-45 MINUTES PER SAMUEL
[2017-03-01 11:55] VITALS: BP 121/63
== END 2017-03-01 12:03 | disposition home or self-care (01) ==
LOC: ER 10:05
DX: Z46.59 Encounter for fitting and adjustment of other gastrointestinal appliance and device (principal); E11.9 Type 2 diabetes mellitus without complications; I50.9 Heart failure, unspecified; J44.9 Chronic obstructive pulmonary disease, unspecified; K21.9 Gastro-esophageal reflux disease without esophagitis; I10 Essential (primary) hypertension; Z88.8 Allergy status to other drugs, medicaments and biological substances; Z88.1 Allergy status to other antibiotic agents; Z79.4 Long term (current) use of insulin; Z85.118 Personal history of other malignant neoplasm of bronchus and lung
CPT/HCPCS: 43752; 74000; 99284; A4606; 94002; Z7610

== ENCOUNTER 2017-03-02 17:22 | Emergency (ER) | payer MEDICARE ==
[~2017-03-02] VITALS: Ht 175.3 cm; Wt 86.2 kg
--- NOTE | 2017-03-02 17:30 | NUR ---
PT BIBA FOR GTUBE MALFUNCTION. WAS RECENTLY HERE FOR THE SAME REASON. PER REPORT PT PULLED IT OUT. AT BS. VSS. SAFETY AND COMFORT MEASURES PROVIDED. WILL MONITOR.
[2017-03-02] MEDS ORDERED: DIATR MEGLU/DIATRIZOATE SODIUM 30 ML BOTTLE (GASTROGRAPHIN) ONE (17:43)
--- NOTE | 2017-03-02 17:43 | NUR ---
CALLED [facility] FOR TRANSPORT BACK TO FACILITY - ETA 50-90 MIN - TRIP #[phone]
--- NOTE | 2017-03-02 17:49 | NUR ---
RT NOTE: VENT DEPENDENT PATIENT RECEIVED WITH SHERRILEY #6 TRACH AND PLACED ON ESPRIT VENT IN ER. VENT SETTINGS PER MD ORDER. ALARMS VERIFIED AND AUDIBLE. VENT PLUGGED INTO RED OUTLET. AMBU BAG AT [facility].
--- NOTE | 2017-03-02 17:50 | NUR ---
TATE AT BS.
--- NOTE | 2017-03-02 19:11 | NUR ---
REPORT GIVEN TO [place] [id number] FOR TRANSPORT BACK [facility].
--- NOTE | 2017-03-02 19:14 | NUR ---
CALLED [facility] AND SPOKE TO GRAYSON- MADE THEM AWARE THAT PT IS GOING BACK TO THEIR FACILITY.
[2017-03-02 19:33] VITALS: BP 130/76
== END 2017-03-02 19:15 | disposition home or self-care (01) ==
LOC: ER 17:23
DX: Z46.59 Encounter for fitting and adjustment of other gastrointestinal appliance and device (principal); I10 Essential (primary) hypertension; I50.9 Heart failure, unspecified; E11.9 Type 2 diabetes mellitus without complications; J44.9 Chronic obstructive pulmonary disease, unspecified; K21.9 Gastro-esophageal reflux disease without esophagitis; Z79.4 Long term (current) use of insulin; Z85.118 Personal history of other malignant neoplasm of bronchus and lung; Z88.1 Allergy status to other antibiotic agents; Z88.8 Allergy status to other drugs, medicaments and biological substances
CPT/HCPCS: 74000-TC; A4606; Q9963

== ENCOUNTER 2017-05-06 15:18 | Inpatient (IN) | payer MEDICARE, BC ==
[~2017-05-06] VITALS: Ht 152.4 cm; Wt 92.1 kg
--- NOTE | 2017-05-06 14:15 | NUR ---
RT PATOIENT REC'D VIA TRANSPORT. TRACHED ON VENT WITH SETTINGS PROVIDED FROM TRANSPORT APPROVED. VENT ALARMS CHECKED + AUDIBLE. SX'D WITH LARGE AMT ANDREW SEMITHICK SECRETIONS. AMBU BAG AT HOB Addendum: 05/06/17 at 1709 by JUAN FRANCISCO LUNDY RT Amended: Links added.
--- NOTE | 2017-05-06 15:20 | NUR ---
[facility] FROM [facility] FOR TACHYCARDIA AND HIGH WBC. NAD NOTED. PT PLACED IN GOWN AND MONITOR. DR COSTA AT BEDSIDE FOR EVAL.
[2017-05-06] MEDS ORDERED: ACETAMINOPHEN 650 MG/20.3 ML UDC GT ONE (16:30)
[2017-05-06] MEDS ORDERED: ACETAMINOPHEN 325 MG TABLET ONE (16:35)
[2017-05-06 16:38] LABS: HEMATOCRIT 38 % (33-45); HEMOGLOBIN 12.1 g/dL (11.5-14.8); MEAN CORPUSCULAR HEMOGLOBIN 29 PG (26.0-33.0); MEAN CORPUSCULAR HGB CONC 32 g/dl (31.0-36.0); MEAN CORPUSCULAR VOLUME 91 fL (82-100); PLATELET COUNT (AUTO) 406 /CMM (150-450); RDW COEFFICIENT OF VARIATION 20.8 (11.5-15.0); RED BLOOD CELL COUNT(AUTO) 4.15 MIL/uL (4.0-5.2)
[2017-05-06 16:43] LABS: WHITE BLOOD COUNT (AUTO) 41.1 K/uL (4.3-11.0)
[2017-05-06 16:50] LABS: CALCIUM, SERUM 8.9 mg/dL (8.5-10.1); CARBON DIOXIDE 20 mmol/L (21-32); CHLORIDE 98 mmol/L (98-107); CREATININE 2.5 mg/dL (0.6-1.3); GLUCOSE 153 mg/dL (74-106); POTASSIUM 3.4 mmol/L (3.5-5.1); SODIUM SERUM 132 mmol/L (136-145); UREA NITROGEN, BLOOD 43 mg/dL (7-18)
[2017-05-06 16:52] LABS: INR 1.16 (0.85-1.15)
[2017-05-06 16:56] LABS: ALANINE AMINOTRANSFERASE 47 U/L (12-78); ALBUMIN 1.7 g/dL (3.4-5.0); ALKALINE PHOSPHATASE 274 U/L (46-116); ASPARTATE AMINOTRANSFERASE 38 U/L (15-37); BILIRUBIN,DIRECT 0.3 mg/dL (0.0-0.2); BILIRUBIN,TOTAL 0.5 mg/dL (0.2-1.0); TOTAL PROTEIN, SERUM 8.4 g/dL (6.4-8.2); TROPONIN I < 0.017 ng/mL (0.00-0.056)
[2017-05-06] MEDS ORDERED: LINEZOLID RTU BAG 600 MG in PREMIX 1 EA IV STA (17:31)
--- NOTE | 2017-05-06 17:39 | NUR ---
PAGED DR MARTINEZ FOR ADMISSION
[2017-05-06 17:56] LABS: ABG BASE EXCESS -4.4 mmol/L; ABG PCO2 32.6 mmHg (35.0-45.0); ABG PH 7.397 (7.350-7.450); ABG PO2 161.9 mmHg (75.0-100.0); AaDO2 85.8 mmHg; COHb 0.4 % (0.5-1.5); MetHb 0.5 % (0.0-1.5); O2Hb 98.1 % (94.0-97.0); SITE, ABG Right Radial
[2017-05-06] MEDS ORDERED: PIPERACILLIN /TAZOBACTAM 2.25 G in IV D5W 50 ML IV ONE (18:00)
[2017-05-06 18:08] LABS: BAND % (MANUAL) 3 % (0.0-5.0); LYMPHOCYTES % (MANUAL) 2 % (16-48); MONOCYTES % (MANUAL) 7 % (0-11.0); NEUTROPHILS % (MANUAL) 88 (42-76)
[2017-05-06] MEDS ORDERED: NITR100C6 GT (18:21)
[2017-05-06] MEDS ORDERED: ONDA4TAB5 GT (18:21)
[2017-05-06] MEDS ORDERED: ZOLP10TA2 GT (18:21)
[2017-05-06] MEDS ORDERED: NUT.237L67 GT (18:21)
--- NOTE | 2017-05-06 19:27 | NUR ---
RECEIVED REPORT FOR HANNAH FROM SHANTI HAYDEN
--- NOTE | 2017-05-06 20:40 | NUR ---
GAVE REPORT TO OSMINDora MAYORGA FOR HANNAH.
[2017-05-06 21:10] VITALS: BP 127/52
--- NOTE | 2017-05-06 21:13 | NUR ---
RCVD PT ON VENT WITH NOTED SETTINGS, TRACH SIZE SHILEY 6. SUCTIONED MODERATE AMOUNT OF YELLOW THICK SECRETIONS. VENT PLUGGED INTO RED OUTLET, VENT ALARM WORKING AND AUDIBLE. AMBU BAG AT BEDSIDE. WILL CONTINUE TO MONITOR THE PT.
--- NOTE | 2017-05-06 21:15 | NUR ---
OSMIN RN INITIAL NOTES RECEIVED PATIENT VIA GURNEY. NON-VERBAL, VENT DEPENDENT. OPENS EYES, RESPONSIVE TO PAIN. NO S/S OF PAIN OR DISCOMFORT. RESPIRATIONS EVEN AND UNLABORED, VENT SETTINGS AC 10, TV 600, FIO2 40%, PEEP 5, SPO2 100%. TRACH C/D/I. GT PATENT AND INTACT, IN PLACE. NO RESIDUAL NOTED. ON TELE MONITOR SR 84. SKIN WARM AND DRY TO TOUCH. PER REPORT PATIENT WAS GIVEN ZOSYN, NO ALLERGIC REACTION NOTED. PER REPORT ATTEMPTED TO GET URINE SAMPLE, PATIENT HAS NO URINE OUTPUT. WITH RCW HD CATH IN PLACE. PATIENT BATHED, BODY ASSESSMENT DONE. HOB KEPT ELEVATED. TURNED AND REPOSITIONED. BED KEPT AT LOWEST POSITION. WILL CONTINUE TO MONITOR.
[2017-05-06] MEDS ORDERED: RENAL NOVASOURCE 1,000 ML BOTTLE GT PRN (22:00)
[2017-05-06] MEDS ORDERED: DEXTROSE 50%-WATER 50 ML DISP.SYRIN IV PRN (22:00)
--- NOTE | 2017-05-06 23:21 | NUR ---
[facility] SPOKE TO [facility] FOR POLST AND VACCINATION FORMS. THEY WILL FAX OVER.
[2017-05-06] MEDS: BLOOD SUGAR DIAGNOSTIC 1 EACH STRIP IN SCH (23:48)
[2017-05-07] VITALS: BP 127/56
[2017-05-07] MEDS ORDERED: INSULIN REGULAR, HUMAN 100 UNIT/ML 10 ML VIAL SQ PRN
--- NOTE | 2017-05-07 00:26 | NUR ---
OSMIN RN NOTES FELICIANO RN CLOTH OPENER HAND CALLED BACK, STATED POLST CAN'T BE FOUND, BUT PATIENT IS FULL CODE AT THEIR FACILITY.
--- NOTE | 2017-05-07 00:46 | NUR ---
SPOKE WITH PHARMACIST SHARITA, KAHLIL TO GIVE ZOSYN IF PATIENT DIDN'T HAVE REACTION FROM FIRST DOSE IN ER.
[2017-05-07] MEDS: ALBUTEROL FS 2.5 MG/0.5 ML VIAL.NEB NEB SCH ×4 (01:52→20:27)
[2017-05-07] MEDS ORDERED: PIPERACILLIN /TAZOBACTAM 3.375 G in IV D5W 100 ML IV SCH (03:00)
[2017-05-07] MEDS ORDERED: PIPERACILLIN /TAZOBACTAM 3.375 G VIAL IV ONE (03:18)
[2017-05-07 04:00] VITALS: BP 129/53
[2017-05-07] MEDS: BLOOD SUGAR DIAGNOSTIC 1 EACH STRIP IN SCH ×4 (06:02→23:17)
--- NOTE | 2017-05-07 07:10 | NUR ---
RN NOTES RECEIVED PT FROM METAL PICKLING EQUIPMENT OPERATOR, CHRONIC VENT/TRACH DEPENDENT, ABLE TO MOUTH OUT SOME WORDS. TOLERATING VENT SETTINGS NO SOB OR DISTRESS NOTED. SR ON THE TELE ZORAIDA HR 86. GTF AT 55ML/HR TOLERATING WELL. BED LOCKED AND IN LOWEST POSITION, CALL LIGHT WITHIN REACH, SIDE RAILS UPX3, WILL CONT TO ZORAIDA.
[2017-05-07 07:14] LABS: CALCIUM, SERUM 8.5 mg/dL (8.5-10.1); CARBON DIOXIDE 22 mmol/L (21-32); CHLORIDE 98 mmol/L (98-107); CREATININE 3.4 mg/dL (0.6-1.3); GLUCOSE 156 mg/dL (74-106); MAGNESIUM 2.4 mg/dL (1.8-2.4); PHOSPHORUS 1.9 mg/dL (2.5-4.9); POTASSIUM 3.4 mmol/L (3.5-5.1); SODIUM SERUM 133 mmol/L (136-145); UREA NITROGEN, BLOOD 67 mg/dL (7-18)
[2017-05-07 07:27] LABS: HEMATOCRIT 33 % (33-45); HEMOGLOBIN 10.4 g/dL (11.5-14.8); MEAN CORPUSCULAR HEMOGLOBIN 29 PG (26.0-33.0); MEAN CORPUSCULAR HGB CONC 32 g/dl (31.0-36.0); MEAN CORPUSCULAR VOLUME 91 fL (82-100); PLATELET COUNT (AUTO) 328 /CMM (150-450); RDW COEFFICIENT OF VARIATION 22.9 (11.5-15.0); RED BLOOD CELL COUNT(AUTO) 3.61 MIL/uL (4.0-5.2)
[2017-05-07 07:46] LABS: WHITE BLOOD COUNT (AUTO) 33.7 K/uL (4.3-11.0)
[2017-05-07 08:00] VITALS: BP 129/54
[2017-05-07] MEDS: ACIDOPHILUS/BULGARICUS 1 EACH TAB.CHEW GT SCH ×2 (08:25→16:58)
[2017-05-07] MEDS: FOLIC ACID 1 MG TABLET GT SCH (08:25)
[2017-05-07] MEDS: FAMOTIDINE (20 MG) 20 MG TABLET GT SCH (08:25)
[2017-05-07] MEDS: OLANZAPINE 2.5 MG TABLET GT SCH ×2 (08:25→16:58)
[2017-05-07] MEDS: NITROFURANTOIN/NITROFURAN MAC 100 MG CAPSULE GT SCH ×2 (08:25→16:58)
[2017-05-07] MEDS: PROSOURCE / PROSTAT (PYXIS) 30 ML UDC GT SCH ×2 (08:26→16:58)
[2017-05-07] MEDS ORDERED: ZOLPIDEM TARTRATE 10 MG TABLET GT PRN (08:30)
[2017-05-07] MEDS ORDERED: POLYETHYLENE GLYCOL 3350 17 GM POWD.PACK GT PRN (08:30)
[2017-05-07] MEDS ORDERED: NEPRO VAN 237 ML CAN GT SCH (08:30)
[2017-05-07] MEDS ORDERED: ACETAMINOPHEN LIQUID 325 MG/10.1 ML UDC GT PRN (08:30)
[2017-05-07] MEDS ORDERED: FLUOXETINE HCL 20 MG CAPSULE GT SCH (09:00)
[2017-05-07] MEDS ORDERED: Medication Not On Formulary EA (Ipratropium/Albuterol Sulfate (Duoneb 2.5-0.5 Mg/3 Ml So IH SCH (09:00)
[2017-05-07] MEDS ORDERED: FOLIC ACID 1 MG TABLET GT SCH (09:00)
[2017-05-07] MEDS: LINEZOLID RTU BAG 600 MG in PREMIX 1 EA IV SCH ×2 (09:34→21:43)
[2017-05-07 11:13] LABS: BAND % (MANUAL) 2 % (0.0-5.0); NEUTROPHILS % (MANUAL) 90 (42-76)
[2017-05-07 11:14] LABS: LYMPHOCYTES % (MANUAL) 2 % (16-48); METAMYELOCYTES % 1 % (0-0); MONOCYTES % (MANUAL) 5 % (0-11.0); MYELOCYTES % 1 % (0-0)
[2017-05-07] MEDS: INSULIN ASPART/LISPRO 100 UNIT/ML CARTRIDGE SQ PRN ×3 (11:14→23:21)
[2017-05-07 12:00] VITALS: BP 128/55
[2017-05-07] MEDS ORDERED: K PHOS NEUTRAL 250 MG TABLET PO ONE (12:00)
[2017-05-07] MEDS: PIPERACILLIN /TAZOBACTAM 2.25 G in IV NS 0.9% 50 ML IV SCH ×2 (12:16→21:43)
[2017-05-07] MEDS: ONDANSETRON 4 MG TAB.RAPDIS GT PRN ×2 (14:48→22:50)
[2017-05-07] MEDS: ACETAMINOPHEN 650 MG/20.3 ML UDC GT PRN ×2 (15:42→21:43)
[2017-05-07 16:00] VITALS: BP_SYST 130; BP_SYST 140; BP_DIAS 51; BP_DIAS 65
--- NOTE | 2017-05-07 16:12 | NUR ---
Patient is trach/vent dependent, resides at [facility] [phone]. Patient is totally dependent with adl's, bedfast most of the time. She gets her hemodialysis 2x/week every Saturday & Saturday at [facility] [phone]. Current plan is to dc back to sub-acute facility once discharge. Addendum: 05/07/17 at 1612 by TIMOTHY WILKINS RN Amended: Links added.
--- NOTE | 2017-05-07 18:59 | NUR ---
RN NOTES PT REMAINED IN STABLE CONDITION THROUGHOUT THE SHIFT, ALL NEEDS MET. WILL ENDORSE TO ONCOMING SHIFT.
--- NOTE | 2017-05-07 19:30 | NUR ---
BUSINESS SUPPORT INITIAL NOTES RECEIVED PATIENT AWAKE A/OX1, NON-VERBAL, FAMILY AT BEDSIDE. DENIES PAIN OR DISCOMFORT. RESPIRATIONS EVEN AND UNLABORED, WITH VENT SETTINGS AC 10, TV 600, FIO2 40%, PEEP 5, SPO2 100%. TRACH C/D/I. GT PATENT AND INTACT, NO RESIDUAL NOTED, GTF AT 25ML/HR. HOB ELEVATED. TURNED AND REPOSITIONED. SIDE RAILS UP AND LOCKED. BED KEPT AT LOWEST POSITION. WILL CONTINUE TO MONITOR.
[2017-05-07 20:00] VITALS: BP 119/82
[2017-05-07] MEDS ORDERED: MUPIROCIN OINT 2% 22 GM TUBE ONE (22:49)
[2017-05-07] MEDS: MUPIROCIN OINT 2% 22 GM TUBE SCH (22:50)
[2017-05-07] MEDS: LORAZEPAM 0.5 MG TABLET GT PRN (22:50)
[2017-05-08] VITALS: BP 98/34
[2017-05-08] MEDS: ALBUTEROL FS 2.5 MG/0.5 ML VIAL.NEB NEB SCH ×4 (01:39→19:53)
[2017-05-08 04:00] VITALS: BP 103/42
[2017-05-08] MEDS: PIPERACILLIN /TAZOBACTAM 2.25 G in IV NS 0.9% 50 ML IV SCH ×3 (05:33→21:53)
[2017-05-08] MEDS: BLOOD SUGAR DIAGNOSTIC 1 EACH STRIP IN SCH ×4 (05:35→23:18)
--- NOTE | 2017-05-08 07:37 | NUR ---
CRM ANALYST CLOSING NOTES NO SIGNIFICANT CHANGES OVERNIGHT. NO RESPIRATORY DISTRESS NOTED. TOLERATING GTF. TOLERATING VENT SETTINGS. AFEBRILE. KEPT CLEAN AND DRY. TURNED AND REPOSITIONED Q2 AND PRN. WOUND TX PROVIDED. HOB ELEVATED. SIDE RAILS UP AND LOCKED. BED KEPT AT LOWEST POSITION. CALL LIGHT KEPT WITHIN EASY REACH. CONTINUITY OF CARE ENDORSED TO AM NURSE.
--- NOTE | 2017-05-08 07:38 | NUR ---
RN Notes On bed with cont vent at desired setting. With 02 sat at 100%. With g tube feeding of novasource 25 cc/hr tolerating well. no gastric residual noted. Kept HOB elevated. With HD access on right upper chest wall dressing dry and intact. with IV access on right AC patent and intact. On tele monitor with HR of 86, sinus. No facial grimacing noted.
[2017-05-08 08:00] VITALS: BP 117/55
[2017-05-08] MEDS: LINEZOLID RTU BAG 600 MG in PREMIX 1 EA IV SCH ×2 (09:01→21:53)
[2017-05-08] MEDS: FOLIC ACID 1 MG TABLET GT SCH (09:02)
[2017-05-08] MEDS: Z GUARD REMEDY 2 OZ OINT TP SCH (09:02)
[2017-05-08] MEDS: OLANZAPINE 2.5 MG TABLET GT SCH ×2 (09:02→17:12)
[2017-05-08] MEDS: FAMOTIDINE (20 MG) 20 MG TABLET GT SCH (09:02)
[2017-05-08] MEDS: NITROFURANTOIN/NITROFURAN MAC 100 MG CAPSULE GT SCH ×2 (09:02→17:12)
[2017-05-08] MEDS: MUPIROCIN OINT 2% 22 GM TUBE SCH ×2 (09:02→21:53)
[2017-05-08] MEDS: ACIDOPHILUS/BULGARICUS 1 EACH TAB.CHEW GT SCH ×2 (09:02→17:12)
[2017-05-08] MEDS: PROSOURCE / PROSTAT (PYXIS) 30 ML UDC GT SCH ×2 (09:05→17:12)
--- NOTE | 2017-05-08 10:17 | NUR ---
WOUND CARE CONSULT WOUND CARE RECEIVED CONSULT FOR MULTIPLE WOUNDS. WOUND CARE WILL DEFER TO SURGICAL TEAM WHO ARE CURRENTLY FOLLOWING. PATIENT WITH TEMI AT 11, ALL PRESSURE ULCER PREVENTION MEASURES NOTED TO BE IN PLACE AT THIS TIME.
[2017-05-08 16:00] VITALS: BP 119/38
[2017-05-08] MEDS: METRONIDAZOLE 250 MG TABLET PO SCH ×2 (17:16→23:19)
--- NOTE | 2017-05-08 18:45 | NUR ---
RN Notes Resting fairly with no complain at this time. Cont vent at desired setting with 02 sat at 100% with equal air entry. With ongoing dialysis, HD nurse at the bedside for care. Needs anticipated. No untoward symptom noted within the shift. Will endorse to car shifter nurse for continuity of care.
[2017-05-08 20:00] VITALS: BP 108/54
[2017-05-08 22:00] VITALS: BP 102/49
[2017-05-08] MEDS: LORAZEPAM 0.5 MG TABLET GT PRN (23:19)
[2017-05-09] VITALS: BP 102/49
[2017-05-09] MEDS: ALBUTEROL FS 2.5 MG/0.5 ML VIAL.NEB NEB SCH ×4 (01:24→19:51)
[2017-05-09 04:00] VITALS: BP 103/48
[2017-05-09] MEDS: PIPERACILLIN /TAZOBACTAM 2.25 G in IV NS 0.9% 50 ML IV SCH ×2 (05:57→12:06)
[2017-05-09] MEDS: BLOOD SUGAR DIAGNOSTIC 1 EACH STRIP IN SCH ×4 (05:59→23:08)
[2017-05-09] MEDS: METRONIDAZOLE 250 MG TABLET PO SCH ×4 (06:02→23:08)
--- NOTE | 2017-05-09 07:05 | NUR ---
RN CLOSING NOTES PATIENT WITH NO ACUTE DISTRESS AND CHANGE IN CONDITION OBSERVED OVERNIGHT. PATIENT HAD 3X BM OF MUCOID CONSISTENCY STOOL. TOLERATED GTF WELL. ON MECH VENT WITH NO DISTRESS, AIRWAY SUCTIONED AND KEPT PATENT. ATB ORDERED. TURNED AND REPOSITIONED [id number] AND PRN. SAFETY AND COMFORT ENSURED. BED IN LOW AND LOCKED POSITION. ENDORSED ACCORDINGLY FOR CONTINUITY OF CARE.
[2017-05-09 07:22] LABS: BASOPHILS % (AUTO) 0.1 % (0.0-2.0); EOSINOPHILS # (AUTO) 0.1 /CMM (0.0-0.7); EOSINOPHILS % (AUTO) 0.2 % (0.0-6.0); HEMATOCRIT 29 % (33-45); HEMOGLOBIN 9.5 g/dL (11.5-14.8); LYMPHOCYTES % (AUTO) 3.3 % (20.0-44.0); MEAN CORPUSCULAR HEMOGLOBIN 29 PG (26.0-33.0); MEAN CORPUSCULAR HGB CONC 33 g/dl (31.0-36.0); MEAN CORPUSCULAR VOLUME 89 fL (82-100); MONOCYTES # (AUTO) 1.9 /CMM (0.1-1.30); MONOCYTES % (AUTO) 6.5 % (2.0-12.0); NEUTROPHILS # (AUTO) 26.2 /CMM (1.8-8.9); NEUTROPHILS % (AUTO) 89.9 % (43.0-81.0); PLATELET COUNT (AUTO) 354 /CMM (150-450); RDW COEFFICIENT OF VARIATION 22.5 (11.5-15.0); RED BLOOD CELL COUNT(AUTO) 3.27 MIL/uL (4.0-5.2); WHITE BLOOD COUNT (AUTO) 29.1 K/uL (4.3-11.0)
[2017-05-09 07:41] LABS: ALANINE AMINOTRANSFERASE 33 U/L (12-78); ALKALINE PHOSPHATASE 192 U/L (46-116); ASPARTATE AMINOTRANSFERASE 20 U/L (15-37); BILIRUBIN,TOTAL 0.5 mg/dL (0.2-1.0); CALCIUM, SERUM 8.7 mg/dL (8.5-10.1); CARBON DIOXIDE 23 mmol/L (21-32); CHLORIDE 95 mmol/L (98-107); CREATININE 3.9 mg/dL (0.6-1.3); GLUCOSE 126 mg/dL (74-106); MAGNESIUM 2.3 mg/dL (1.8-2.4); PHOSPHORUS 2.6 mg/dL (2.5-4.9); POTASSIUM 3.3 mmol/L (3.5-5.1); SODIUM SERUM 134 mmol/L (136-145); TOTAL PROTEIN, SERUM 6.8 g/dL (6.4-8.2)
--- NOTE | 2017-05-09 07:45 | NUR ---
RN NOTES RECEIVED IN STABLE CONDITION, VENT/TRACH DEPENDENT, ALERT, NONVERBAL. SR ON THE TELE ZORAIDA HR 91. GTF AT 25ML/HR. L HAND 18G, R AC 18G IV SITE INTACT NO IVF. BED LOCKED AND IN LOWEST POSITION, CALL LIGHT WITHIN REACH, WILL CONT TO ZORAIDA.
[2017-05-09 08:00] VITALS: BP 114/41
[2017-05-09 08:04] LABS: UREA NITROGEN, BLOOD 90 mg/dL (7-18)
[2017-05-09 08:05] LABS: ALBUMIN 1.3 g/dL (3.4-5.0)
[2017-05-09] MEDS: LINEZOLID RTU BAG 600 MG in PREMIX 1 EA IV SCH (08:14)
[2017-05-09] MEDS: FAMOTIDINE (20 MG) 20 MG TABLET GT SCH (08:14)
[2017-05-09] MEDS: FOLIC ACID 1 MG TABLET GT SCH (08:14)
[2017-05-09] MEDS: PROSOURCE / PROSTAT (PYXIS) 30 ML UDC GT SCH ×2 (08:14→16:27)
[2017-05-09] MEDS: NITROFURANTOIN/NITROFURAN MAC 100 MG CAPSULE GT SCH ×2 (08:14→16:27)
[2017-05-09] MEDS: OLANZAPINE 2.5 MG TABLET GT SCH ×2 (08:14→16:27)
[2017-05-09] MEDS: ACIDOPHILUS/BULGARICUS 1 EACH TAB.CHEW GT SCH ×2 (08:14→16:27)
[2017-05-09] MEDS: Z GUARD REMEDY 2 OZ OINT TP SCH (08:15)
[2017-05-09] MEDS: MUPIROCIN OINT 2% 22 GM TUBE SCH ×2 (08:15→21:56)
[2017-05-09 09:43] LABS: BAND % (MANUAL) 4 % (0.0-5.0); LYMPHOCYTES % (MANUAL) 7 % (16-48); MONOCYTES % (MANUAL) 11 % (0-11.0); NEUTROPHILS % (MANUAL) 78 (42-76)
[2017-05-09 12:00] VITALS: BP 121/51
[2017-05-09 16:00] VITALS: BP 108/48
[2017-05-09] MEDS: CHOLESTYRAMINE/ASPARTAME 4 G/PKT PACKET PO SCH (18:53)
--- NOTE | 2017-05-09 19:11 | NUR ---
RN NOTES PT REMAINED IN STABLE CONDITION THROUGHOUT THE SHIFT, ALL NEEDS MET. WILL ENDORSE TO ONCOMING SHIFT.
[2017-05-09 20:00] VITALS: BP 116/52
[2017-05-09] MEDS: LINEZOLID 600 MG TABLET PO SCH (21:56)
[2017-05-09] MEDS: VANCOMYCIN HCL 125 MG/2.5 ML ORAL.SUSP PO SCH (23:07)
[2017-05-09] MEDS: ZOLPIDEM TARTRATE 10 MG TABLET PO PRN (23:08)
[2017-05-09] MEDS: ACETAMINOPHEN 650 MG/20.3 ML UDC GT PRN (23:08)
[2017-05-10] VITALS (7 sets, daily range): BP systolic 96–132; BP diastolic 43–67
[2017-05-10] MEDS: ALBUTEROL FS 2.5 MG/0.5 ML VIAL.NEB NEB SCH ×4 (02:01→19:42)
[2017-05-10] MEDS: VANCOMYCIN HCL 125 MG/2.5 ML ORAL.SUSP PO SCH ×3 (06:00→17:20)
[2017-05-10] MEDS: METRONIDAZOLE 250 MG TABLET PO SCH ×3 (06:15→17:20)
[2017-05-10] MEDS: BLOOD SUGAR DIAGNOSTIC 1 EACH STRIP IN SCH ×3 (06:15→17:20)
[2017-05-10] MEDS: Z GUARD REMEDY 2 OZ OINT TP SCH (09:00)
[2017-05-10] MEDS: FAMOTIDINE (20 MG) 20 MG TABLET GT SCH (11:37)
[2017-05-10] MEDS: LINEZOLID 600 MG TABLET PO SCH ×2 (11:37→21:57)
[2017-05-10] MEDS: PROSOURCE / PROSTAT (PYXIS) 30 ML UDC GT SCH ×2 (11:38→17:19)
[2017-05-10] MEDS: FOLIC ACID 1 MG TABLET GT SCH (11:38)
[2017-05-10] MEDS: OLANZAPINE 2.5 MG TABLET GT SCH ×2 (11:38→17:20)
[2017-05-10] MEDS: NITROFURANTOIN/NITROFURAN MAC 100 MG CAPSULE GT SCH ×2 (11:38→17:20)
[2017-05-10] MEDS: ACIDOPHILUS/BULGARICUS 1 EACH TAB.CHEW GT SCH ×2 (11:38→17:20)
[2017-05-10] MEDS: MUPIROCIN OINT 2% 22 GM TUBE SCH ×2 (11:39→22:04)
[2017-05-10] MEDS: Z GUARD REMEDY 2 OZ OINT TP PRN (11:40)
[2017-05-10] MEDS: RENAL NOVASOURCE 1,000 ML BOTTLE GT PRN (12:50)
[2017-05-10] MEDS: ACETAMINOPHEN 650 MG/20.3 ML UDC GT PRN ×2 (17:20→22:05)
[2017-05-10] MEDS: ONDANSETRON 4 MG TAB.RAPDIS GT PRN (18:28)
[2017-05-10] MEDS: CHOLESTYRAMINE/ASPARTAME 4 G/PKT PACKET PO SCH (19:03)
--- NOTE | 2017-05-10 19:42 | NUR ---
RCVD PT ON VENT WITH NOTED SETTINGS. BREATHING TX GIVEN PER MD'S ORDER, NO ADVERSE REACTION NOTED. SUCTIONED MODERATE AMOUNT OF YELLOWISH ANDREW THICK SECRETIONS. VENT PLUGGED INTO RED OUTLET, VENT ALARM WORKING AND AUDIBLE. AMBU BAG AT BEDSIDE, WILL CONTINUE TO MONITOR THE PT.
[2017-05-11] VITALS: BP_SYST 102; BP_SYST 99; BP_DIAS 41; BP_DIAS 46
[2017-05-11] MEDS: BLOOD SUGAR DIAGNOSTIC 1 EACH STRIP IN SCH ×5 (00:26→23:22)
[2017-05-11] MEDS: VANCOMYCIN HCL 125 MG/2.5 ML ORAL.SUSP PO SCH ×5 (00:32→23:20)
[2017-05-11] MEDS: METRONIDAZOLE 250 MG TABLET PO SCH ×5 (00:32→23:20)
[2017-05-11] MEDS: ALBUTEROL FS 2.5 MG/0.5 ML VIAL.NEB NEB SCH ×4 (01:42→19:51)
[2017-05-11 04:00] VITALS: BP_SYST 102; BP_SYST 129; BP_DIAS 49; BP_DIAS 68
--- NOTE | 2017-05-11 06:18 | NUR ---
RN NOTES ENDORSED IN STABLE CONDITION, VENT/TRACH DEPENDENT, ALERT, NONVERBAL. SR ON THE TELE ZORAIDA HR 80. GTF AT 25ML/HR. L HAND 18G, R AC 18G IV SITE INTACT NO IVF. BED LOCKED AND IN LOWEST POSITION, CALL LIGHT WITHIN REACH, WILL CONT TO ZORAIDA.
[2017-05-11 07:17] LABS: BASOPHILS % (AUTO) 0.1 % (0.0-2.0); EOSINOPHILS # (AUTO) 0.2 /CMM (0.0-0.7); EOSINOPHILS % (AUTO) 0.7 % (0.0-6.0); HEMATOCRIT 32 % (33-45); LYMPHOCYTES # (AUTO) 1.4 /CMM (0.8-4.8); LYMPHOCYTES % (AUTO) 4.1 % (20.0-44.0); MEAN CORPUSCULAR HEMOGLOBIN 28 PG (26.0-33.0); MEAN CORPUSCULAR HGB CONC 31 g/dl (31.0-36.0); MEAN CORPUSCULAR VOLUME 92 fL (82-100); MONOCYTES # (AUTO) 1.7 /CMM (0.1-1.30); MONOCYTES % (AUTO) 5.1 % (2.0-12.0); NEUTROPHILS # (AUTO) 29.7 /CMM (1.8-8.9); PLATELET COUNT (AUTO) 390 /CMM (150-450); RDW COEFFICIENT OF VARIATION 23.1 (11.5-15.0); RED BLOOD CELL COUNT(AUTO) 3.53 MIL/uL (4.0-5.2)
--- NOTE | 2017-05-11 07:30 | NUR ---
RN OPEN NOTES RECEIVED REPORT FROM THERMAL CUTTER HAND NURSE. PATIENT IS IN BED, VENT DEPENDENT AND NON VERBAL. CURRENTLY HEMODIALYSIS AT BEDSIDE. BED IN LOW POSITION LOCKED AND TWO SIDE RAILS ARE UP. CALL LIGHT WITHIN REACH FOR SAFETY. BREATHING IS BILATERALLY EVEN. NO SIGNS AND SYMPTOMS OF DISTRESS. WILL CONTINUE TO MONITOR AND ASSESS PATIENT
[2017-05-11 07:49] LABS: CALCIUM, SERUM 8.9 mg/dL (8.5-10.1); CREATININE 4.1 mg/dL (0.6-1.3); GLUCOSE 121 mg/dL (74-106); MAGNESIUM 2.3 mg/dL (1.8-2.4); PHOSPHORUS 4.1 mg/dL (2.5-4.9)
[2017-05-11 07:57] LABS: CARBON DIOXIDE 21 mmol/L (21-32); CHLORIDE 98 mmol/L (98-107); POTASSIUM 2.9 mmol/L (3.5-5.1); SODIUM SERUM 136 mmol/L (136-145)
[2017-05-11 08:00] VITALS: BP 131/50
[2017-05-11 08:32] LABS: UREA NITROGEN, BLOOD 88 mg/dL (7-18)
--- NOTE | 2017-05-11 09:49 | NUR ---
PATIENT IS STILL GETTING DIALYSES. WILL ADMINISTER ALL MEDS SOON HD IS COMPLETED
--- NOTE | 2017-05-11 10:18 | NUR ---
DIALYSIS COMPLETED. 2L REMOVED. WILL ADMINISTER ALL DUE MEDS
[2017-05-11] MEDS: OLANZAPINE 2.5 MG TABLET GT SCH ×2 (10:20→16:52)
[2017-05-11] MEDS: PROSOURCE / PROSTAT (PYXIS) 30 ML UDC GT SCH ×2 (10:20→16:52)
[2017-05-11] MEDS: FOLIC ACID 1 MG TABLET GT SCH (10:20)
[2017-05-11] MEDS: ACIDOPHILUS/BULGARICUS 1 EACH TAB.CHEW GT SCH ×2 (10:20→16:52)
[2017-05-11] MEDS: NITROFURANTOIN/NITROFURAN MAC 100 MG CAPSULE GT SCH ×2 (10:21→16:52)
[2017-05-11] MEDS: MUPIROCIN OINT 2% 22 GM TUBE SCH ×2 (10:21→21:40)
[2017-05-11] MEDS: FAMOTIDINE (20 MG) 20 MG TABLET GT SCH (10:21)
[2017-05-11] MEDS: LINEZOLID 600 MG TABLET PO SCH ×2 (10:21→21:39)
[2017-05-11] MEDS: Z GUARD REMEDY 2 OZ OINT TP SCH (10:22)
[2017-05-11 12:00] VITALS: BP 96/66
--- NOTE | 2017-05-11 12:30 | NUR ---
CALLED PHARMACY FOR EPOGEN
[2017-05-11] MEDS: INSULIN ASPART/LISPRO 100 UNIT/ML CARTRIDGE SQ PRN ×2 (12:34→17:46)
[2017-05-11] MEDS ORDERED: EPOETIN ALFA (10,000 UNIT) 10,000 UNIT/ML VIAL IV ONE (13:00)
--- NOTE | 2017-05-11 14:20 | NUR ---
CALLED PHARMACY FOR EPOGEN
[2017-05-11 14:51] LABS: BAND % (MANUAL) 8 % (0.0-5.0); BASOPHILS % (MANUAL) 0 % (0.0-2.0); EOSINOPHILS % (MANUAL) 0 % (0-4); LYMPHOCYTES % (MANUAL) 9 % (16-48); METAMYELOCYTES % 7 % (0-0); MONOCYTES % (MANUAL) 3 % (0-11.0); NEUTROPHILS % (MANUAL) 73 (42-76)
[2017-05-11 16:00] VITALS: BP 144/56
--- NOTE | 2017-05-11 16:15 | NUR ---
CALLED PHARMACY FOR EPOGEN
--- NOTE | 2017-05-11 17:45 | NUR ---
CONSENT TO REMOVE PERMACATH SIGNNED AND PLACED IN THE CHART. DAUGHTER SIGNED THE CONSENT.
[2017-05-11] MEDS: CHOLESTYRAMINE/ASPARTAME 4 G/PKT PACKET PO SCH (18:12)
[2017-05-11] MEDS: ONDANSETRON 4 MG TAB.RAPDIS GT PRN (18:12)
--- NOTE | 2017-05-11 18:21 | NUR ---
DAUGHTER: LACEY [phone] OR HOME NUMBER [phone]
--- NOTE | 2017-05-11 18:31 | NUR ---
RN CLOSING NOTES PT IN BED, RESTING COMFORTABLY AT THIS TIME, DAUGHTER AT BEDSIDE. NON VERBAL. NO DISTRESS, NO SOB NOTED. BREATHING IS BILATERALLY EVEN AND UNLABORED. SAFETY PRECAUTIONS OBSERVED. ALL NEEDS ATTENDED AND MET. KEPT COMFORTABLE. CALL LIGHT WITHIN REACH. BED IN LOW POSITION, LOCKED AND TWO SIDE RAILS ARE UP. WILL ENDORSE TO FURNITURE INSPECTOR NURSE
--- NOTE | 2017-05-11 19:51 | NUR ---
RCVD PT ON VENT WITH NOTED SETTINGS. BREATHING TX GIVEN PER MD'S ORDER, NO ADVERSE REACTION NOTED. SUCTIONED MODERATE AMOUNT OF YELLOW THICK SECRETIONS. VENT PLUGGED INTO RED OUTLET, VENT ALARM WORKING AND AUDIBLE. AMBU BAG AT BEDSIDE, WILL CONTINUE TO MONITOR THE PT.
[2017-05-11 20:00] VITALS: BP 127/54
[2017-05-11] MEDS: ZOLPIDEM TARTRATE 10 MG TABLET PO PRN (21:39)
[2017-05-11] MEDS: ACETAMINOPHEN 650 MG/20.3 ML UDC GT PRN (23:18)
[2017-05-11] MEDS: LORAZEPAM 0.5 MG TABLET GT PRN (23:18)
[2017-05-12] VITALS: BP 99/49
[2017-05-12] MEDS: ALBUTEROL FS 2.5 MG/0.5 ML VIAL.NEB NEB SCH ×4 (01:35→20:21)
[2017-05-12 04:00] VITALS: BP 102/48
[2017-05-12] MEDS: BLOOD SUGAR DIAGNOSTIC 1 EACH STRIP IN SCH ×3 (05:46→17:44)
[2017-05-12] MEDS: METRONIDAZOLE 250 MG TABLET PO SCH ×3 (05:47→17:37)
[2017-05-12] MEDS: VANCOMYCIN HCL 125 MG/2.5 ML ORAL.SUSP PO SCH ×3 (05:47→17:37)
--- NOTE | 2017-05-12 07:57 | NUR ---
CURVE CLEANER NOTE: RECEIVED PATIENT IN BED, ASLEEP BUT AROUSABLE W/ TACTILE STIMULI. OPEN EYES. HOB ELEVATED. RESPIRATION EVEN AND UNLABORED. ON VENT-TRACH DEPENDENT SATURATING WELL 100%. (R) AC IV LINE NOTED INTACT W/ TRANSPARENT DRESSING. 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 (R) CHEST HD CATH NOTED INTACT W/ DRESSING IN PLACED. ON SIGNAL HELPER SR= 89. BED ALARM AND LOCKED AT ALL TIMES. CALL LIGHT WITHIN REACH. NEEDS ANTICIPATED.
[2017-05-12 08:00] VITALS: BP 124/51
[2017-05-12] MEDS: FAMOTIDINE (20 MG) 20 MG TABLET GT SCH (09:13)
[2017-05-12] MEDS: FOLIC ACID 1 MG TABLET GT SCH (09:14)
[2017-05-12] MEDS: NITROFURANTOIN/NITROFURAN MAC 100 MG CAPSULE GT SCH ×2 (09:14→17:32)
[2017-05-12] MEDS: OLANZAPINE 2.5 MG TABLET GT SCH ×2 (09:14→17:32)
[2017-05-12] MEDS: ACIDOPHILUS/BULGARICUS 1 EACH TAB.CHEW GT SCH ×2 (09:14→17:32)
[2017-05-12] MEDS: MUPIROCIN OINT 2% 22 GM TUBE SCH ×2 (09:15→22:23)
[2017-05-12] MEDS: Z GUARD REMEDY 2 OZ OINT TP SCH (09:15)
[2017-05-12] MEDS: PROSOURCE / PROSTAT (PYXIS) 30 ML UDC GT SCH ×2 (09:20→17:32)
[2017-05-12] MEDS: LINEZOLID 600 MG TABLET PO SCH ×2 (09:20→22:20)
[2017-05-12 12:00] VITALS: BP 119/55
[2017-05-12] MEDS: INSULIN ASPART/LISPRO 100 UNIT/ML CARTRIDGE SQ PRN (12:28)
[2017-05-12 16:00] VITALS: BP 124/66
--- NOTE | 2017-05-12 17:47 | NUR ---
RT NOTE PATIENT RECEIVED ON MECHANICAL VENTILATION. PATIENT IS TRACHED. AMBU BAG @ BEDSIDE. SX DONE T/O SHIFT, TRACH SECURED AND PATENT. SP02 > 92%. NO SOB NOTED. ALARMS ON AND AUDIBLE. HME REPLACED. PULSE OX PROBE CONNECTED AND WORKING WELL. Addendum: 05/12/17 at 1747 by SATISH MENA RT Amended: Links added.
[2017-05-12] MEDS: ONDANSETRON 4 MG TAB.RAPDIS GT PRN (18:24)
--- NOTE | 2017-05-12 19:50 | NUR ---
RN OPENING NOTES RECEIVED REPORT FROM DAYSHIFT RN. FOUND Pt AWAKE, RESTING IN BED. NO S/S OF ACUTE DISTRESS OR SOB NOTED. Pt IS ALERT, BUT NON-VERBAL, ABLE TO MOUTH WORDS. VENT SETTINGS: SHILEY #6, AC 10, TV 600, FIO2 40%, & PEEP 5. ON TELE MONITOR. GT TUBE FEEDING NOVASOURCE #25ML/HR. IV ACCESS ON RAC #18G, SL. SAFETY MEASURES IN PLACE. BED LOW, LOCKED, HOB ELEVATED SIDE RAILS UP, CALL LIGHT AND BEDSIDE TABLE WITHIN REACH. WILL CONTINUE TO MONITOR Pt THROUGHOUT THE NIGHT FOR SAFETY.
[2017-05-12 20:00] VITALS: BP 135/51
--- NOTE | 2017-05-12 20:03 | NUR ---
DIGITAL SALES REPRESENTATIVE NOTE: PATIENT IN BED, ASLEEP BUT AROUSABLE W/ TACTILE STIMULI. OPEN EYES. HOB ELEVATED. RESPIRATION EVEN AND UNLABORED. ON VENT-TRACH DEPENDENT SATURATING WELL 100%. (R) AC IV LINE NOTED INTACT W/ TRANSPARENT DRESSING. CONTINUE W/ CONTACT ISOLATION FOR C.DIFF AND MRSA NARES. (R) CHEST HD CATH NOTED INTACT W/ DRESSING IN PLACED. ON NURSES SUPERVISOR SR= 90. BED ALARM AND LOCKED AT ALL TIMES. CALL LIGHT WITHIN REACH. REPORT GIVEN TO PM SHIFT NURSE FOR CONTINUITY OF CARE. DAUGHTER PRESENT AT THE BEDSIDE. DAUGHTER WAS AWARE THAT DR. DIAZ DID NOT REMOVE THE (R) CHEST WALL HD CATH TODAY. PM SHIFT NURSE MADE AWARE AND WILL FOLLOW-UP ABOUT IT.
--- NOTE | 2017-05-12 20:21 | NUR ---
RT NOTE PATIENT RECEIVED IN STABLE CONDITION ON MECHANICAL VENT. PATIENT IS TOLERATING CURRENT ORDERED VENT SETTINGS WELL. NO SIGNS OF RESPIRATORY DISTRESS NOTED. TRACH IS PATENT AND SECURE. MECHANICAL VENT IS PLUGGED INTO RED OUTLET. ALARMS ARE SET AND AUDIBLE. AMBU BAG AND BACK UP TRACH ARE AT PATIENTS BEDSIDE. WILL CONTINUE TO MONITOR PATIENT. Addendum: 05/12/17 at 2241 by PIERRE TAVAREZ RT Amended: Links added.
[2017-05-12] MEDS: CHOLESTYRAMINE/ASPARTAME 4 G/PKT PACKET PO SCH (20:58)
[2017-05-12 21:37] LABS: ALANINE AMINOTRANSFERASE 18 U/L (12-78); ALBUMIN 1.7 g/dL (3.4-5.0); ALKALINE PHOSPHATASE 191 U/L (46-116); ASPARTATE AMINOTRANSFERASE 11 U/L (15-37); BILIRUBIN,TOTAL 0.4 mg/dL (0.2-1.0); CALCIUM, SERUM 9.8 mg/dL (8.5-10.1); CARBON DIOXIDE 21 mmol/L (21-32); CHLORIDE 98 mmol/L (98-107); CREATININE 4.4 mg/dL (0.6-1.3); GLUCOSE 173 mg/dL (74-106); MAGNESIUM 2.4 mg/dL (1.8-2.4); PHOSPHORUS 6.2 mg/dL (2.5-4.9); SODIUM SERUM 136 mmol/L (136-145); TOTAL PROTEIN, SERUM 7.8 g/dL (6.4-8.2)
[2017-05-12 21:38] LABS: UREA NITROGEN, BLOOD 102 mg/dL (7-18)
[2017-05-12 22:08] LABS: BASOPHILS # (AUTO) 0.1 /CMM (0.0-0.2); BASOPHILS % (AUTO) 0.2 % (0.0-2.0); EOSINOPHILS # (AUTO) 0.1 /CMM (0.0-0.7); EOSINOPHILS % (AUTO) 0.4 % (0.0-6.0); HEMATOCRIT 37 % (33-45); HEMOGLOBIN 11.9 g/dL (11.5-14.8); LYMPHOCYTES # (AUTO) 2.2 /CMM (0.8-4.8); LYMPHOCYTES % (AUTO) 6.9 % (20.0-44.0); MEAN CORPUSCULAR HEMOGLOBIN 29 PG (26.0-33.0); MEAN CORPUSCULAR HGB CONC 32 g/dl (31.0-36.0); MEAN CORPUSCULAR VOLUME 91 fL (82-100); MONOCYTES # (AUTO) 1.5 /CMM (0.1-1.30); MONOCYTES % (AUTO) 4.9 % (2.0-12.0); NEUTROPHILS # (AUTO) 27.3 /CMM (1.8-8.9); NEUTROPHILS % (AUTO) 87.6 % (43.0-81.0); PLATELET COUNT (AUTO) 464 /CMM (150-450); RDW COEFFICIENT OF VARIATION 22.2 (11.5-15.0); RED BLOOD CELL COUNT(AUTO) 4.09 MIL/uL (4.0-5.2)
[2017-05-12 22:14] LABS: WHITE BLOOD COUNT (AUTO) 31.2 K/uL (4.3-11.0)
[2017-05-12] MEDS: ZOLPIDEM TARTRATE 10 MG TABLET PO PRN (22:21)
[2017-05-12] MEDS: RENAL NOVASOURCE 1,000 ML BOTTLE GT PRN (22:21)
--- NOTE | 2017-05-12 22:21 | NUR ---
RN NOTES PATIENT NOT5ED WITH CARDIAC RHYTHM CHANGE FROM SINUS RHYTHM TO AFLUTTER, CONFIRMED WITH EKG. STAT LABS DRAWN, WITH POTASSIUM LEVEL NOTED TO BE AT 3.0. DR MARTINEZ CALLED AND MADE AWARE REGARDING THE CHANGE OF CONDITION AND LATEST LAB VALUES, WITH NEW ORDER FOR POTASSIUM CHLORIDE 60mEq VIA [facility] X1 NOW. ORDER READ BACK FOR CLARIFICATION. ORDER PLACED, AWAITING VERIFICATION OF NEW ORDERS BY PHARMACY. WILL ADMINISTER MEDICATION WHEN AVAILABLE
[2017-05-12] MEDS ORDERED: POTASSIUM CHLORIDE 20 MEQ POWDER PACKET GT ONE (22:30)
[2017-05-12 22:57] LABS: LYMPHOCYTES % (MANUAL) 7 % (16-48); MONOCYTES % (MANUAL) 4 % (0-11.0)
[2017-05-12 22:58] LABS: METAMYELOCYTES % 4 % (0-0); MYELOCYTES % 1 % (0-0); NEUTROPHILS % (MANUAL) 84 (42-76)
--- NOTE | 2017-05-12 23:00 | NUR ---
RN NOTES DTR AT BEDSIDE REQUESTED FOR Pt TO BE LEFT ALONE WHILE SLEEPING SO THAT SHE CAN GET SOME REST. DID NOT TAKE PICTURES FOR THIS REASON.
[2017-05-13] VITALS: BP 96/69
[2017-05-13] MEDS: METRONIDAZOLE 250 MG TABLET PO SCH ×5 (00:01→23:02)
[2017-05-13] MEDS: VANCOMYCIN HCL 125 MG/2.5 ML ORAL.SUSP PO SCH ×5 (00:01→23:02)
[2017-05-13] MEDS: BLOOD SUGAR DIAGNOSTIC 1 EACH STRIP IN SCH ×5 (00:32→23:40)
[2017-05-13] MEDS: ONDANSETRON 4 MG TAB.RAPDIS GT PRN (00:32)
--- NOTE | 2017-05-13 00:45 | NUR ---
RN NOTES ACCUCHECK BG 138. NO INSULIN COVERAGE NEEDED AT THIS TIME BASED ON SLIDING SCALE 70-150UN=0 UN.
[2017-05-13] MEDS: ALBUTEROL FS 2.5 MG/0.5 ML VIAL.NEB NEB SCH ×4 (01:25→20:05)
[2017-05-13 04:00] VITALS: BP 129/41
--- NOTE | 2017-05-13 06:50 | NUR ---
RN CLOSING NOTES Pt REMAINS STABLE AT THIS TIME. NO S/S OF ACUTE DISTRESS OR SOB NOTED. ON VENT/TRACH. TELE READING SR/ST WITH AFLUTTER. ALL NEEDS MET AND ATTENDED TO. SAFETY MEASURES IN PLACE. WILL ENDORSE TO CHINTAN RN FOR Pt's HANNAH.
[2017-05-13 08:00] VITALS: BP_SYST 131; BP_DIAS 63; BP_DIAS 65
--- NOTE | 2017-05-13 08:12 | NUR ---
DAY PORTER NOTE: RECEIVED PATIENT IN BED, ASLEEP BUT AROUSABLE W/ TACTILE STIMULI. OPEN EYES. HOB ELEVATED. RESPIRATION EVEN AND UNLABORED. ON VENT-TRACH DEPENDENT SATURATING WELL 100%. ON GT FEEDING OF NOVASOURCE RENAL @25CC/HR AND TOLERATING IT WELL. (R) AC IV LINE NOTED PATENT & INTACT W/ TRANSPARENT DRESSING. 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 (R) CHEST HD CATH REMOVED BY THIS MORNING PER PM SHIFT NURSE & NOTED W/ DRY GAUZE IN PLACED. ON KENNEL KEEPER A. FLUTTER= 69. BED ALARM AND LOCKED AT ALL TIMES. CALL LIGHT WITHIN REACH. NEEDS ANTICIPATED.
[2017-05-13] MEDS: FOLIC ACID 1 MG TABLET GT SCH (09:30)
[2017-05-13] MEDS: ACIDOPHILUS/BULGARICUS 1 EACH TAB.CHEW GT SCH ×2 (09:30→17:22)
[2017-05-13] MEDS: PROSOURCE / PROSTAT (PYXIS) 30 ML UDC GT SCH ×2 (09:30→17:23)
[2017-05-13] MEDS: FAMOTIDINE (20 MG) 20 MG TABLET GT SCH (09:30)
[2017-05-13] MEDS: LINEZOLID 600 MG TABLET PO SCH ×2 (09:30→21:01)
[2017-05-13] MEDS: OLANZAPINE 2.5 MG TABLET GT SCH ×2 (09:30→17:22)
[2017-05-13] MEDS: Z GUARD REMEDY 2 OZ OINT TP SCH (09:31)
[2017-05-13] MEDS: MUPIROCIN OINT 2% 22 GM TUBE SCH ×2 (09:31→21:02)
[2017-05-13 12:00] VITALS: BP 146/76
--- NOTE | 2017-05-13 12:22 | NUR ---
GLASSWARE FINISHER NOTE: SPOKE W/ DR. OTERO RE: PATIENT'S POTASSIUM LEVEL YESTERDAY OF 3.0 AND MADE AWARE THAT PATIENT HAS BEEN GIVEN KLORCON 60 MEQ X1 YESTERDAY. NO NEW ORDER AT THIS TIME. PER MD NO NEED TO REPEAT LABS FOR TODAY AND WILL ORDER LABS FOR TOMORROW.
--- NOTE | 2017-05-13 13:52 | NUR ---
REFINERY PIPELINE OPERATOR NOTE: INFORMED DR. OTERO RE: THE CHEST X-RAY RESULT TODAY. W/ NO NEW ORDER.
[2017-05-13 16:00] VITALS: BP 120/62
[2017-05-13] MEDS: Z GUARD REMEDY 2 OZ OINT TP PRN (18:11)
[2017-05-13] MEDS: LORAZEPAM 0.5 MG TABLET GT PRN ×2 (18:17)
[2017-05-13] MEDS: CHOLESTYRAMINE/ASPARTAME 4 G/PKT PACKET PO SCH (18:23)
[2017-05-13 18:26] LABS: HEMATOCRIT 39 % (33-45); HEMOGLOBIN 12.2 g/dL (11.5-14.8); LYMPHOCYTES # (AUTO) 1.3 /CMM (0.8-4.8); LYMPHOCYTES % (AUTO) 3.5 % (20.0-44.0); MEAN CORPUSCULAR HEMOGLOBIN 29 PG (26.0-33.0); MEAN CORPUSCULAR HGB CONC 31 g/dl (31.0-36.0); MEAN CORPUSCULAR VOLUME 92 fL (82-100); MONOCYTES # (AUTO) 1.5 /CMM (0.1-1.30); MONOCYTES % (AUTO) 4.1 % (2.0-12.0); NEUTROPHILS # (AUTO) 34.3 /CMM (1.8-8.9); NEUTROPHILS % (AUTO) 92.4 % (43.0-81.0); PLATELET COUNT (AUTO) 458 /CMM (150-450); RED BLOOD CELL COUNT(AUTO) 4.24 MIL/uL (4.0-5.2)
[2017-05-13 18:30] LABS: ALANINE AMINOTRANSFERASE 15 U/L (12-78); ALBUMIN 1.8 g/dL (3.4-5.0); ALKALINE PHOSPHATASE 197 U/L (46-116); ASPARTATE AMINOTRANSFERASE 12 U/L (15-37); BILIRUBIN,TOTAL 0.5 mg/dL (0.2-1.0); CALCIUM, SERUM 9.9 mg/dL (8.5-10.1); CARBON DIOXIDE 16 mmol/L (21-32); CHLORIDE 97 mmol/L (98-107); CREATININE 5.2 mg/dL (0.6-1.3); GLUCOSE 175 mg/dL (74-106); MAGNESIUM 2.6 mg/dL (1.8-2.4); SODIUM SERUM 134 mmol/L (136-145); TOTAL PROTEIN, SERUM 8.3 g/dL (6.4-8.2)
[2017-05-13 18:36] LABS: UREA NITROGEN, BLOOD 133 mg/dL (7-18)
[2017-05-13 19:03] LABS: WHITE BLOOD COUNT (AUTO) 37.1 K/uL (4.3-11.0)
[2017-05-13 19:12] LABS: BAND % (MANUAL) 6 % (0.0-5.0); EOSINOPHILS % (MANUAL) 2 % (0-4); LYMPHOCYTES % (MANUAL) 2 % (16-48); METAMYELOCYTES % 1 % (0-0); MONOCYTES % (MANUAL) 4 % (0-11.0); MYELOCYTES % 1 % (0-0); NEUTROPHILS % (MANUAL) 84 (42-76)
--- NOTE | 2017-05-13 19:27 | NUR ---
TELEPRINTER NOTE: CALLED AND SPOKE W/ LAM FROM RADIOLOGY AND MADE HIM AWARE ABOUT THE CHEST X-RAY RESULT FOR THE HD CATHETER PLACEMENT. PER LAM, HE WILL CLARIFY THE SITE RESULT OF THE INTERNAL JUGULAR CATHETER. PATIENT WAS NOTED W/ (R) IJ HD CATHETER IN PLACED.
--- NOTE | 2017-05-13 19:39 | NUR ---
OPERATOR/ASSISTANT FOREMAN NOTE: CALLED AND SPOKE W/ DR. OTERO RE: PATIENT'S WBC 37.1 AND BUN 133. MD WAS INFORMED THAT PATIENT IS CURRENTLY RECEIVING ANTIBIOTICS AND AFEBRILE 98.2F AND NO EPISODE OF FEVER WITHIN THE SHIFT. W/ NO NEW ORDER.
[2017-05-13 20:00] VITALS: BP 129/38
--- NOTE | 2017-05-13 20:05 | NUR ---
RCVD PT ON VENT WITH NOTED SETTINGS. BREATHING TX GIVEN PER MD'S ORDER, NO ADVERSE REACTION NOTED. SUCTIONED LARGE AMOUNT OF YELLOW THICK SECRETIONS. VENT PLUGGED INTO RED OUTLET, VENT ALARM WORKING AND AUDIBLE. AMBU BAG AT BEDSIDE, WILL CONTINUE TO MONITOR THE PT.
--- NOTE | 2017-05-13 20:16 | NUR ---
SPECIALTY TRIMMER NOTE: RECEIVED PATIENT IN BED, ASLEEP BUT AROUSABLE W/ TACTILE STIMULI. OPEN EYES. HOB ELEVATED. RESPIRATION EVEN AND UNLABORED. ON VENT-TRACH DEPENDENT SATURATING WELL 100%. ON GT FEEDING OF NOVASOURCE RENAL @25CC/HR AND TOLERATING IT WELL. (R) AC IV LINE NOTED PATENT & INTACT W/ TRANSPARENT DRESSING. 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 (R) IJ HD CATH NOTED IN PLACED W/ TRANSPARENT DRESSING CLEAN AND DRY. ON WINDOW DRESSER A. FLUTTER= 100. BED ALARM AND LOCKED AT ALL TIMES. CALL LIGHT WITHIN REACH. DAUGHTER PRESENT AT THE BEDSIDE. REPORT GIVEN TO PM SHIFT NURSE FOR CONTINUITY OF CARE.
[2017-05-13] MEDS: ACETAMINOPHEN 650 MG/20.3 ML UDC GT PRN (21:16)
[2017-05-13] MEDS: INSULIN ASPART/LISPRO 100 UNIT/ML CARTRIDGE SQ PRN (23:45)
[2017-05-14] VITALS: BP 104/37
[2017-05-14] MEDS: ALBUTEROL FS 2.5 MG/0.5 ML VIAL.NEB NEB SCH ×4 (01:30→19:45)
[2017-05-14 04:00] VITALS: BP 107/42
[2017-05-14] MEDS: ACETAMINOPHEN 650 MG/20.3 ML UDC GT PRN (05:10)
[2017-05-14] MEDS: METRONIDAZOLE 250 MG TABLET PO SCH ×3 (05:11→17:15)
[2017-05-14] MEDS: VANCOMYCIN HCL 125 MG/2.5 ML ORAL.SUSP PO SCH ×3 (05:11→17:16)
[2017-05-14] MEDS: INSULIN ASPART/LISPRO 100 UNIT/ML CARTRIDGE SQ PRN (05:23)
[2017-05-14] MEDS: BLOOD SUGAR DIAGNOSTIC 1 EACH STRIP IN SCH ×3 (05:23→17:44)
[2017-05-14 07:14] LABS: HEMATOCRIT 36 % (33-45); HEMOGLOBIN 11.1 g/dL (11.5-14.8); LYMPHOCYTES # (AUTO) 1.5 /CMM (0.8-4.8); MEAN CORPUSCULAR HEMOGLOBIN 29 PG (26.0-33.0); MEAN CORPUSCULAR HGB CONC 31 g/dl (31.0-36.0); MEAN CORPUSCULAR VOLUME 92 fL (82-100); MONOCYTES # (AUTO) 1.2 /CMM (0.1-1.30); NEUTROPHILS # (AUTO) 27.3 /CMM (1.8-8.9); PLATELET COUNT (AUTO) 397 /CMM (150-450); RED BLOOD CELL COUNT(AUTO) 3.89 MIL/uL (4.0-5.2)
[2017-05-14 07:34] LABS: ALANINE AMINOTRANSFERASE 13 U/L (12-78); ALBUMIN 1.6 g/dL (3.4-5.0); ALKALINE PHOSPHATASE 172 U/L (46-116); ASPARTATE AMINOTRANSFERASE 15 U/L (15-37); BILIRUBIN,TOTAL 0.5 mg/dL (0.2-1.0); CALCIUM, SERUM 9.6 mg/dL (8.5-10.1); CARBON DIOXIDE 18 mmol/L (21-32); CHLORIDE 97 mmol/L (98-107); CREATININE 5.7 mg/dL (0.6-1.3); GLUCOSE 165 mg/dL (74-106); MAGNESIUM 2.7 mg/dL (1.8-2.4); PHOSPHORUS 7.4 mg/dL (2.5-4.9); POTASSIUM 4.6 mmol/L (3.5-5.1); SODIUM SERUM 134 mmol/L (136-145); TOTAL PROTEIN, SERUM 7.7 g/dL (6.4-8.2)
[2017-05-14 07:37] LABS: UREA NITROGEN, BLOOD 154 mg/dL (7-18)
--- NOTE | 2017-05-14 07:50 | NUR ---
RN OPENING NOTES RECEIVED PATIENT IN BED, ASLEEP BUT AROUSABLE HOB ELEVATED. RESPIRATION EVEN AND UNLABORED. ON VENT-TRACH DEPENDENT SATURATING WELL 100%. ON GT FEEDING OF NOVASOURCE RENAL @25CC/HR AND TOLERATING IT WELL. (R) AC IV LINE NOTED PATENT & INTACT. 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 (R) CHEST HD CATH. ON PILOT SUBMERSIBLE A. FLUTTER 69. BED LOCKED IN THE LOWEST POSITION WITH SIDE RAILS UP X2. CALL LIGHT WITHIN REACH. WILL CONTINUE TO MONITOR, ASSESS AND EDUCATE PATIENT THROUGHOUT SHIFT.
[2017-05-14 08:00] VITALS: BP 100/39
--- NOTE | 2017-05-14 09:00 | NUR ---
RN NTOES NO RESIDUALS NOTED PRIOR TO MED ADMINISTRATION.
[2017-05-14 09:21] LABS: BAND % (MANUAL) 7 % (0.0-5.0); EOSINOPHILS % (MANUAL) 1 % (0-4); LYMPHOCYTES % (MANUAL) 3 % (16-48); MONOCYTES % (MANUAL) 1 % (0-11.0); MYELOCYTES % 3 % (0-0); NEUTROPHILS % (MANUAL) 85 (42-76)
[2017-05-14] MEDS: CHOLESTYRAMINE/ASPARTAME 4 G/PKT PACKET PO SCH (09:47)
[2017-05-14] MEDS: FOLIC ACID 1 MG TABLET GT SCH (09:47)
[2017-05-14] MEDS: OLANZAPINE 2.5 MG TABLET GT SCH ×2 (09:47→17:15)
[2017-05-14] MEDS: FAMOTIDINE (20 MG) 20 MG TABLET GT SCH (09:47)
[2017-05-14] MEDS: ACIDOPHILUS/BULGARICUS 1 EACH TAB.CHEW GT SCH ×2 (09:47→17:15)
[2017-05-14] MEDS: LINEZOLID 600 MG TABLET PO SCH ×2 (09:47→21:45)
[2017-05-14] MEDS: Z GUARD REMEDY 2 OZ OINT TP SCH (09:48)
[2017-05-14] MEDS: MUPIROCIN OINT 2% 22 GM TUBE SCH ×2 (09:49→21:46)
[2017-05-14] MEDS: PROSOURCE / PROSTAT (PYXIS) 30 ML UDC GT SCH ×2 (09:50→17:16)
[2017-05-14 12:00] VITALS: BP 103/46
[2017-05-14] MEDS ORDERED: AMIODARONE 900 MG in IV D5W 500 ML IV PRN ×2 (12:00→12:59)
[2017-05-14] MEDS ORDERED: AMIODARONE 150 MG in IV D5W 100 ML IV ONE (12:00)
--- NOTE | 2017-05-14 12:00 | NUR ---
RN NOTES PATIENT RECEIVING DIALYSIS. PATIENT BECAME SEVERELY TACHY AND CHANGED TO OSMIN STATUS AND ENDORSE TO RN CHARLES.
--- NOTE | 2017-05-14 12:08 | NUR ---
TD/MOTION DESIGNER OF CARE RECEIVED REPORT FROM NURSE MUÑOZ. PT'S ACUITY ADVANCE TO OSMIN STATUS D/T INCREASED HR 150s WITH A-FLUTTER RHYTHM. ENDORSED TO CONTINUE CARE.
[2017-05-14 12:30] LABS: TROPONIN I 0.209 ng/mL (0.00-0.056)
--- NOTE | 2017-05-14 12:32 | NUR ---
TD/RN BOLUS AMIODARONE BOLUS OF AMIODARONE INITIATED, COMPLETED AT 1245.
[2017-05-14 12:47] LABS: THYROID STIMULATING HORMONE 3.39 uIU/mL (0.358-3.74)
--- NOTE | 2017-05-14 12:50 | NUR ---
TD/RN AMIODARONE DRIP INITIATED AMIODARONE DRIP INITIATED @ 1MG/MIN TO BE INFUSED FOR 6 HOURS, THEN 0.5MG/MIN FOR 18 HOURS. ON GOING MONITORING.
[2017-05-14 13:17] LABS: MAGNESIUM 2.8 mg/dL (1.8-2.4)
[2017-05-14 16:00] VITALS: BP 97/45
--- NOTE | 2017-05-14 16:00 | NUR ---
TD/RN AFTERNOON ROUNDS PM CARE PROVIDED. PT TELE READING STILL A-FLUTTER, HR 69, NO ACUTE CHANGE OF CONDITION AT THIS TIME. MONITORING CONTINUED.
--- NOTE | 2017-05-14 18:05 | NUR ---
PT. REMAIN STABLE ON TRACHED SHILEY # 6 ON VENT CHANGES T/O DAY AND NO DISTRESS NOTED. B/S REMAIN RHONCHI AND SUX'D FOR SMALL AMT. YELLOWISH SECRETION. VENT ON RED OUT LET AND AMBU BAG REMAIN AT THE BEDSIDE. REPORT WILL PASS TO PM SHIFT. Addendum: 05/14/17 at 1806 by SYDNI DASILVA RT Amended: Links added.
--- NOTE | 2017-05-14 19:30 | NUR ---
TD/RN AM SHIFT END NOTES AMIODARONE DRIP INFUSING @ 0.5MG/MIN, NO CHANGE OF HEART RHYTHM SINCE AMIODARONE DRIP STARTED, HR HAS GONE DOWN. ALL NEEDS MET. PT ENDORSED TO PM NURSE TO CONTINUE CARE. CL WITHIN REACHED, SAFETY MAINTAINED AND ISOLATION OBSERVED.
[2017-05-14 20:00] VITALS: BP 103/41
--- NOTE | 2017-05-14 20:00 | NUR ---
OSMIN RN NOTE RECEIVED PT IN BED AWAKE, ALERT, NON VERBAL. ON VENT/TRACH TOLERATING THE SETTINGS WELL. SUCTIONED HER FREQUENTLY, THIN WHITE SECRETIONS NOTED. NO DISTRESS OR DISCOMFORT NOTED. NO S/S OF PAIN NOTED. ON TELE MONITOR A FLUTTER HR 71. GT INTACT AND PATENT INFUSING NOVASOURCE AT 25 ML/HR, 20 ML RESIDUAL NOTED. KEPT HOB ELEVATED. RIJ SL INTACT AND PATENT. ALSO RAC #18 G S/L INTACT AND PATENT INFUSING AMIODARONE DRIP AT 0.5 MG/HR, NO S/S OF INFILTRATION NOTED. REPOSITION HER FOR SKIN MANAGEMENT. DTR AT BED SIDE. SIDE RAILS UP X 3 AND CALL LIGHT WITHIN REACH. VSS. CONTINUE TO MONITOR HER.
--- NOTE | 2017-05-14 20:25 | NUR ---
PT RECEIVED ON VENT, NO RESPIRATORY DISTRESS NOTED AT THIS TIME, PT VENT ALARMS CHECKED FOUND TO BE ON, AUDIBLE AND WITHIN LIMITS. VENT PLUGGED INTO RED OUTLET. PT HHN TX MD ORDERED AND SX PRN. BVM AT BEDSIDE.
[2017-05-14] MEDS: ZOLPIDEM TARTRATE 10 MG TABLET PO PRN (22:57)
[2017-05-14] MEDS: ONDANSETRON 4 MG TAB.RAPDIS GT PRN (22:58)
--- NOTE | 2017-05-14 23:00 | NUR ---
OSMIN RN NOTE PT IS AWAKE. UNABLE TO GO TO SLEEP. PER DTR AT BED SIDE, PT IS ALSO WITH NAUSEA, AMBIEN 10 MG AND ZOFRAN 4MG VIA GT GIVEN FOR SLEEP AND NAUSEA RESPECTIVELY. CONTINUE TO MONITOR HER.
[2017-05-15] VITALS: BP 103/44
[2017-05-15] MEDS: BLOOD SUGAR DIAGNOSTIC 1 EACH STRIP IN SCH ×5 (00:17→23:18)
[2017-05-15] MEDS: VANCOMYCIN HCL 125 MG/2.5 ML ORAL.SUSP PO SCH ×5 (00:19→23:18)
[2017-05-15] MEDS: METRONIDAZOLE 250 MG TABLET PO SCH ×5 (00:19→23:18)
[2017-05-15] MEDS: ALBUTEROL FS 2.5 MG/0.5 ML VIAL.NEB NEB SCH ×4 (01:19→20:12)
[2017-05-15 04:00] VITALS: BP 112/52
[2017-05-15] MEDS: RENAL NOVASOURCE 1,000 ML BOTTLE GT PRN (05:12)
--- NOTE | 2017-05-15 07:02 | NUR ---
OSMIN RN NOTE PT IN NO DISTRESS OR DISCOMFORT. NO S/S OF PAIN NOTED. ON TELE A FLUTTER HR 66. BED BATH GIVEN AND CHANGED ALL LINENS. KEPT HER DRY AND CLEAN. ALL NEEDS ATTENDED. ENDORSE TO DAY SHIFT NURSE FOR CONTINUE TO CARE.
--- NOTE | 2017-05-15 07:19 | NUR ---
RT PT RECEIVED TRACHED ON THE VENT WITH NOTED SETTINGS. PT IS AWAKE AND TRACKS WITH EYES. VENT ALARMS ARE SET AND AUDIBLE WITH BVM BY BEDSIDE. MANAGER PAYER CUFF PRESSURE NOTED. VENT IS PLUGGED INTO RED OUTLET. NO RESPIRATORY DISTRESS NOTED AT THIS TIME, WILL CONTINUE TO MONITOR. Addendum: 05/15/17 at 1813 by LUÍS COLLIER RT Amended: Links added.
[2017-05-15 08:00] VITALS: BP 108/58
[2017-05-15] MEDS: FAMOTIDINE (20 MG) 20 MG TABLET GT SCH (08:44)
[2017-05-15] MEDS: ACIDOPHILUS/BULGARICUS 1 EACH TAB.CHEW GT SCH ×2 (08:44→17:40)
[2017-05-15] MEDS: LINEZOLID 600 MG TABLET PO SCH ×2 (08:45→20:52)
[2017-05-15] MEDS: OLANZAPINE 2.5 MG TABLET GT SCH ×2 (08:45→17:40)
[2017-05-15] MEDS: PROSOURCE / PROSTAT (PYXIS) 30 ML UDC GT SCH ×2 (08:45→17:40)
[2017-05-15] MEDS: FOLIC ACID 1 MG TABLET GT SCH (08:45)
[2017-05-15] MEDS: HYDROGEL DRESSING 90 GM TUBE TP PRN (08:46)
[2017-05-15] MEDS: MUPIROCIN OINT 2% 22 GM TUBE SCH ×2 (08:47→21:00)
[2017-05-15] MEDS: Z GUARD REMEDY 2 OZ OINT TP SCH (08:49)
[2017-05-15] MEDS: METOPROLOL TARTRATE 50 MG TABLET PO SCH ×2 (09:40→20:53)
[2017-05-15 12:00] VITALS: BP 99/48
--- NOTE | 2017-05-15 12:45 | NUR ---
PHARMACIST IN CHARGE NOTE PT FINISHED AMINO DRIP. DC MEDICATION.
[2017-05-15 16:00] VITALS: BP 113/43
[2017-05-15] MEDS: CHOLESTYRAMINE/ASPARTAME 4 G/PKT PACKET PO SCH (18:00)
--- NOTE | 2017-05-15 19:30 | NUR ---
RN INITIAL NOTE RECEIVED PATIENT IN BED AWAKE, ALERT TO NAME, NON VERBAL, FAMILY MEMBER AT BEDSIDE. TRACH MIDLINE AND INTACT, ON MECHANICAL VENTILATOR AT PRESCRIBED SETTINGS, TOLERATING WELL, NO S/S OF RESPIRATORY DISTRESS NOTED. NO ACUTE DISTRESS OR DISCOMFORT NOTED, DENIES PAIN AT THIS TIME. ON TELEMETRY MONITORING, REVEALING A FLUTTER HR = 74 BPM. GT INTACT AND PATENT INFUSING NOVASOURCE AT 25 ML/HR, NO GASTRIC RESIDUAL NOTED. KEPT HOB ELEVATED. RIJ HD CATHETER DRESSING INTACT, NO ACUTE BLEEDING NOTED. ALSO NOTED WITH RAC #18G INTACT AND PATENT, SL. PATIENT REPOSITIONED FOR COMFORT AND SKIN MANAGEMENT. CALL LIGHT LEFT WITHIN EASY REACH, BED IN LOWEST AND LOCKED POSITION. WILL CONTINUE TO CLOSELY MONITOR. ISOLATION PRECAUTIONS OBSERVED.
[2017-05-15 20:00] VITALS: BP 108/53
[2017-05-15] MEDS: ACETAMINOPHEN 650 MG/20.3 ML UDC GT PRN (23:18)
[2017-05-16] VITALS (7 sets, daily range): BP systolic 79–102; BP diastolic 25–60
[2017-05-16] MEDS: ZOLPIDEM TARTRATE 10 MG TABLET PO PRN (00:29)
--- NOTE | 2017-05-16 01:30 | NUR ---
RN NOTES - HYPOTENSION PATIENT'S LATEST BP 88/25, RECHECKED 78/36. PATIENT LAST RECEIVED METOPROLOL 50 MG @ 2100, AMBIEN @ 0030. CALLED AND SPOKE TO DR MAN. MADE AWARE OF LATEST VITAL SIGNS AND MOST RECENT MEDICATIONS ADMINISTERED. PER DR MAN, "THAT'S FINE, HOLD BP MEDS FOR NOW, AND RECHECK IN THE MORNING." NO FURTHER ORDERS RECEIVED. WILL CONTINUE TO CLOSELY MONITOR
[2017-05-16] MEDS: ALBUTEROL FS 2.5 MG/0.5 ML VIAL.NEB NEB SCH ×4 (01:39→20:07)
--- NOTE | 2017-05-16 01:42 | NUR ---
PT RECEIVED TRACHED ON THE VENT WITH NOTED SETTIGNS. VENT ALARMS ARE SET AND AUDIBLE WITH BVM BY BEDSIDE. COFFEE ROASTER HELPER CUFF PRESSURE NOTED. VENT IS PLUGGED INTO RED OUTLET. NO RESPIRATORY DISTRESS NOTED AT THIS TIME, WILL CONTINUE TO MONITOR. Addendum: 05/16/17 at 0143 by KRISTA HAMMOND RT Amended: Links added.
[2017-05-16] MEDS: BLOOD SUGAR DIAGNOSTIC 1 EACH STRIP IN SCH ×3 (06:04→17:59)
[2017-05-16] MEDS: METRONIDAZOLE 250 MG TABLET PO SCH ×3 (06:06→17:59)
[2017-05-16] MEDS: VANCOMYCIN HCL 125 MG/2.5 ML ORAL.SUSP PO SCH ×3 (06:07→17:58)
--- NOTE | 2017-05-16 07:00 | NUR ---
RN CLOSING NOTES PATIENT RESTING IN BED, APPEARS COMFORTABLE. ;ATEST BP 91/48. WILL ENDORSE THE PATIENT TO THE AM SHIFT NURSE FOR HANNAH
--- NOTE | 2017-05-16 07:25 | NUR ---
RN NOTES RECEIVED PT FROM FINANCIAL OPERATIONS CONSULTANT, VENT/TRACH DEPENDENT, TOLERATING VENT SETTINGS NO SOB OR DISTRESS NOTED. A&0X1, ABLE TO MOUTH OUT WORDS. A FLUTTER ON THE TELE ZORAIDA HR 73. GTF AT 25ML/HR. RAC 18G IV SITE INTACT NO IVF. BED LOCKED AND IN LOWEST POSITION, CALL LIGHT WITHIN REACH, SIDE RAILS UPX3, WILL CONT TO ZORAIDA.
[2017-05-16] MEDS: OLANZAPINE 2.5 MG TABLET GT SCH ×2 (08:41→16:20)
[2017-05-16] MEDS: ACIDOPHILUS/BULGARICUS 1 EACH TAB.CHEW GT SCH ×2 (08:41→16:20)
[2017-05-16] MEDS: PROSOURCE / PROSTAT (PYXIS) 30 ML UDC GT SCH ×2 (08:41→16:21)
[2017-05-16] MEDS: FOLIC ACID 1 MG TABLET GT SCH (08:41)
[2017-05-16] MEDS: FAMOTIDINE (20 MG) 20 MG TABLET GT SCH (08:41)
[2017-05-16] MEDS: LINEZOLID 600 MG TABLET PO SCH (08:41)
[2017-05-16] MEDS: MUPIROCIN OINT 2% 22 GM TUBE SCH ×2 (08:42→21:14)
[2017-05-16] MEDS: METOPROLOL TARTRATE 50 MG TABLET PO SCH (08:42)
[2017-05-16] MEDS: Z GUARD REMEDY 2 OZ OINT TP SCH (08:43)
[2017-05-16] MEDS ORDERED: IV NS 0.9% 250 ML IV ONE (09:00)
[2017-05-16] MEDS: AMIODARONE HCL 200 MG TABLET GT SCH ×2 (10:51→16:21)
[2017-05-16] MEDS: IV NS 0.9% 1,000 ML IV PRN ×2 (10:55→22:31)
[2017-05-16 14:43] LABS: EOSINOPHILS % (AUTO) 0.1 % (0.0-6.0); HEMATOCRIT 29 % (33-45); HEMOGLOBIN 8.9 g/dL (11.5-14.8); LYMPHOCYTES # (AUTO) 0.9 /CMM (0.8-4.8); LYMPHOCYTES % (AUTO) 3.8 % (20.0-44.0); MEAN CORPUSCULAR HEMOGLOBIN 29 PG (26.0-33.0); MEAN CORPUSCULAR HGB CONC 31 g/dl (31.0-36.0); MEAN CORPUSCULAR VOLUME 92 fL (82-100); MONOCYTES # (AUTO) 1.2 /CMM (0.1-1.30); NEUTROPHILS # (AUTO) 21.9 /CMM (1.8-8.9); NEUTROPHILS % (AUTO) 91.1 % (43.0-81.0); PLATELET COUNT (AUTO) 306 /CMM (150-450); RDW COEFFICIENT OF VARIATION 24.8 (11.5-15.0); RED BLOOD CELL COUNT(AUTO) 3.11 MIL/uL (4.0-5.2)
[2017-05-16 15:51] LABS: BAND % (MANUAL) 4 % (0.0-5.0); LYMPHOCYTES % (MANUAL) 3 % (16-48); MONOCYTES % (MANUAL) 2 % (0-11.0); MYELOCYTES % 1 % (0-0); NEUTROPHILS % (MANUAL) 90 (42-76)
[2017-05-16] MEDS: CHOLESTYRAMINE/ASPARTAME 4 G/PKT PACKET PO SCH (18:01)
--- NOTE | 2017-05-16 19:30 | NUR ---
INSTRUCTIONAL DESIGN MANAGER INITIAL NOTE PT RECEIVED IN BED WITH DAUGHTER AT BEDSIDE. A/O X1 AND ABLE TO MOUTH SOME WORDS. ON MECH VENT WITH SETTINGS WELL TOLERATED. TELE-AFLUTTER 70'S. IV RAC CLEAN, DRY AND PATENT WITH FLUIDS INFUSING. RIJ CAMILO CATH CLEAN AND DRY. GTUBE FEEDING WELL TOLERATED AND NO RESIDUALS NOTED. HOB ELEVATED AND ON ASPIRATION PRECAUTIONS. CONTACT ISOLATION PRECAUTIONS OBSERVED. WILL CONTINUE TO MONITOR.
[2017-05-16] MEDS: SULFAMETHOXAZOLE/TRIMETHOPRIM 10 ML in IV D5W 250 ML IV SCH (21:13)
[2017-05-17] VITALS: BP 120/57
[2017-05-17] MEDS: VANCOMYCIN HCL 125 MG/2.5 ML ORAL.SUSP PO SCH ×4 (00:08→17:07)
[2017-05-17] MEDS: BLOOD SUGAR DIAGNOSTIC 1 EACH STRIP IN SCH ×4 (00:08→17:05)
[2017-05-17] MEDS: METRONIDAZOLE 250 MG TABLET PO SCH ×4 (00:08→17:03)
[2017-05-17] MEDS: ALBUTEROL FS 2.5 MG/0.5 ML VIAL.NEB NEB SCH ×4 (01:25→20:06)
[2017-05-17] MEDS: IV NS 0.9% 1,000 ML IV PRN (03:41)
[2017-05-17] MEDS: RENAL NOVASOURCE 1,000 ML BOTTLE GT PRN (03:42)
[2017-05-17 04:00] VITALS: BP 102/92
--- NOTE | 2017-05-17 07:30 | NUR ---
TOMBSTONE SETTER INITIAL NOTES PT RECEIVED IN BED, A/O X1 AND ABLE TO MOUTH SOME WORDS. ON MECH VENT WITH SETTINGS WELL TOLERATED. TELE-AFLUTTER 70'S. IV RAC CLEAN, DRY AND PATENT WITH FLUIDS INFUSING. RIJ CAMILO CATH CLEAN AND DRY. GTUBE FEEDING WELL TOLERATED AND NO RESIDUALS NOTED. HOB ELEVATED AND ON ASPIRATION PRECAUTIONS. CONTACT ISOLATION PRECAUTIONS OBSERVED. WILL CONTINUE TO MONITOR.
--- NOTE | 2017-05-17 07:48 | NUR ---
CLINICAL DIETETIC TECHNICIAN CLOSING NOTE NO ACUTE DISTRESS NOTED. ALL NEEDS ATTENDED TO PROMPTLY. VENT SETTINGS WELL TOLERATED. HOB ELEVATED. ISOLATION PRECAUTIONS OBSERVED. REPOSITIONED Q2H. SUCTIONED NEEDED. KEPT CLEAN AND DRY. WILL ENDORSE TO NEXT SHIFT FOR CONTINUITY OF CARE.
[2017-05-17 08:00] VITALS: BP 119/48
[2017-05-17] MEDS: FAMOTIDINE (20 MG) 20 MG TABLET GT SCH (09:08)
[2017-05-17] MEDS: FOLIC ACID 1 MG TABLET GT SCH (09:08)
[2017-05-17] MEDS: PROSOURCE / PROSTAT (PYXIS) 30 ML UDC GT SCH ×2 (09:08→17:05)
[2017-05-17] MEDS: AMIODARONE HCL 200 MG TABLET GT SCH ×2 (09:09→17:05)
[2017-05-17] MEDS: OLANZAPINE 2.5 MG TABLET GT SCH ×2 (09:09→17:03)
[2017-05-17] MEDS: Z GUARD REMEDY 2 OZ OINT TP SCH (09:09)
[2017-05-17] MEDS: ACIDOPHILUS/BULGARICUS 1 EACH TAB.CHEW GT SCH ×2 (09:09→17:03)
[2017-05-17] MEDS: MUPIROCIN OINT 2% 22 GM TUBE SCH ×2 (09:10→20:59)
[2017-05-17] MEDS: SULFAMETHOXAZOLE/TRIMETHOPRIM 10 ML in IV D5W 250 ML IV SCH ×2 (09:13→20:58)
--- NOTE | 2017-05-17 10:45 | NUR ---
COLLECTOR OF INTERNAL REVENUE NOTES PATIENT RECEIVING HD AT THIS TIME, NO DISTRESS NOTED. VITALS STABLE.
[2017-05-17 12:00] VITALS: BP 104/55
--- NOTE | 2017-05-17 12:00 | NUR ---
CANS VACUUM TESTER NOTES PATIENT RECEIVED HD, NO DISTRESS NOTED VITALS STABLE, 1L OUTPUT.
[2017-05-17] MEDS: INSULIN ASPART/LISPRO 100 UNIT/ML CARTRIDGE SQ PRN (12:01)
[2017-05-17 16:00] VITALS: BP 104/43
[2017-05-17] MEDS: CHOLESTYRAMINE/ASPARTAME 4 G/PKT PACKET PO SCH (18:23)
--- NOTE | 2017-05-17 19:04 | NUR ---
LACE INSPECTOR END NOTES PATIENT RESTING IN BED, NO SIGNS OF DISTRESS, FAMILY AT BEDSIDE, WILL ENDORSE TO AIRCRAFT ELECTRICAL SYSTEMS SPECIALIST FOR CONTINUITY OF CARE.
--- NOTE | 2017-05-17 19:30 | NUR ---
CONTACT CENTRE SUPERVISOR INITIAL NOTE PT RECEIVED IN BED WITH DAUGHTER AND AT BEDSIDE. A/O X1 AND ABLE TO MOUTH SOME WORDS. ON MECH VENT WITH SETTINGS WELL TOLERATED. TELE-AFLUTTER 70'S. IV RAC CLEAN, DRY AND PATENT. RIJ CAMILO CATH CLEAN AND DRY. GTUBE FEEDING WELL TOLERATED AND NO RESIDUALS NOTED. HOB ELEVATED AND ON ASPIRATION PRECAUTIONS. CONTACT ISOLATION PRECAUTIONS OBSERVED. WILL CONTINUE TO MONITOR.
[2017-05-17 20:00] VITALS: BP 120/61
[2017-05-17] MEDS: ZOLPIDEM TARTRATE 10 MG TABLET PO PRN (22:32)
[2017-05-18] VITALS: BP 109/64
[2017-05-18] MEDS: BLOOD SUGAR DIAGNOSTIC 1 EACH STRIP IN SCH ×5 (00:51→23:54)
[2017-05-18] MEDS: VANCOMYCIN HCL 125 MG/2.5 ML ORAL.SUSP PO SCH ×4 (00:51→17:25)
[2017-05-18] MEDS: METRONIDAZOLE 250 MG TABLET PO SCH ×5 (00:51→23:58)
[2017-05-18] MEDS: ALBUTEROL FS 2.5 MG/0.5 ML VIAL.NEB NEB SCH ×4 (01:23→19:45)
[2017-05-18 04:00] VITALS: BP 116/40
[2017-05-18] MEDS: RENAL NOVASOURCE 1,000 ML BOTTLE GT PRN (05:14)
--- NOTE | 2017-05-18 05:37 | NUR ---
RECEIVED PT TRACHED ON VENT ON MD ORDERED SETTINGS. VENT/ ALARMS WELL FUNCTIONING WITH AMBU BAG AT BEDSIDE. NO SOB/ DISTRESS NOTED/ SX'D Q2 +PRN FOR MOD THICK YELLOW SECRETIONS. NO SOB NOTED POST SX. CHYNA/ LETI CHANGED Addendum: 05/18/17 at 0537 by CHUCHO BENNETT RT Amended: Links added.
--- NOTE | 2017-05-18 06:58 | NUR ---
MACHINING TECHNICIAN CLOSING NOTE PT REMAINED STABLE DURING SHIFT. NO ACUTE DISTRESS NOTED. REPOSITIONED Q2H. SUCTIONED NEEDED. MECH VENT SETTINGS WELL TOLERATED. KEPT CLEAN AND DRY. HOB ELEVATED. ISOLATION PRECAUTIONS OBSERVED. WILL ENDORSE TO NEXT SHIFT FOR CONTINUITY OF CARE.
--- NOTE | 2017-05-18 07:49 | NUR ---
FLEET MANAGER INITIAL NOTE PT RECEIVED IN BED . A/O X1-2 AND ABLE TO MOUTH SOME WORDS. ON MECH VENT WELL TOLERATING VENT SETTINGS WELL. PT ON TELE-AFLUTTER. IV RIGHT AC CLEAN, DRY AND INTACT. PT HAS CLEVE PAGE FOR DIALYSIS - CATH REMAINS CLEAN AND DRY. GTUBE FEEDING IN PLACE AND TOLERATED WELL- NO RESIDUALS NOTED. HOB ELEVATED AND ON ASPIRATION PRECAUTIONS. CONTACT ISOLATION PRECAUTIONS OBSERVED AND FOLLOWED. RN WILL CONTINUE TO MONITOR THROUGHOUT THE DAY.
[2017-05-18 08:00] VITALS: BP 107/39
[2017-05-18 08:09] LABS: EOSINOPHILS # (AUTO) 0.1 /CMM (0.0-0.7); EOSINOPHILS % (AUTO) 0.3 % (0.0-6.0); HEMATOCRIT 25 % (33-45); HEMOGLOBIN 7.7 g/dL (11.5-14.8); LYMPHOCYTES # (AUTO) 0.7 /CMM (0.8-4.8); LYMPHOCYTES % (AUTO) 3.6 % (20.0-44.0); MEAN CORPUSCULAR HEMOGLOBIN 29 PG (26.0-33.0); MEAN CORPUSCULAR HGB CONC 31 g/dl (31.0-36.0); MEAN CORPUSCULAR VOLUME 93 fL (82-100); MONOCYTES # (AUTO) 1.4 /CMM (0.1-1.30); MONOCYTES % (AUTO) 7.3 % (2.0-12.0); NEUTROPHILS # (AUTO) 17.5 /CMM (1.8-8.9); NEUTROPHILS % (AUTO) 88.8 % (43.0-81.0); PLATELET COUNT (AUTO) 242 /CMM (150-450); RDW COEFFICIENT OF VARIATION 24.9 (11.5-15.0); RED BLOOD CELL COUNT(AUTO) 2.68 MIL/uL (4.0-5.2); WHITE BLOOD COUNT (AUTO) 19.7 K/uL (4.3-11.0)
[2017-05-18] MEDS: PROSOURCE / PROSTAT (PYXIS) 30 ML UDC GT SCH ×2 (08:38→17:27)
[2017-05-18] MEDS: SULFAMETHOXAZOLE/TRIMETHOPRIM 10 ML in IV D5W 250 ML IV SCH ×2 (08:38→20:38)
[2017-05-18] MEDS: FOLIC ACID 1 MG TABLET GT SCH (08:38)
[2017-05-18] MEDS: ACIDOPHILUS/BULGARICUS 1 EACH TAB.CHEW GT SCH ×2 (08:38→17:24)
[2017-05-18] MEDS: OLANZAPINE 2.5 MG TABLET GT SCH ×2 (08:38→17:24)
[2017-05-18] MEDS: FAMOTIDINE (20 MG) 20 MG TABLET GT SCH (08:39)
[2017-05-18] MEDS: MUPIROCIN OINT 2% 22 GM TUBE SCH ×2 (08:40→22:25)
[2017-05-18] MEDS: Z GUARD REMEDY 2 OZ OINT TP SCH (08:40)
[2017-05-18] MEDS: AMIODARONE HCL 200 MG TABLET GT SCH ×2 (08:41→17:24)
[2017-05-18 12:00] VITALS: BP 126/75
[2017-05-18 16:00] VITALS: BP 125/50
[2017-05-18] MEDS: CHOLESTYRAMINE/ASPARTAME 4 G/PKT PACKET PO SCH (17:25)
--- NOTE | 2017-05-18 17:57 | NUR ---
Pt tolerated current vent settings well. No changes made. Pt trach is secure. Vent is plugged into a red outlet, alarms are set and audible, and BVM is at bedside. Addendum: 05/18/17 at 1757 by CAREN PADILLA RT Amended: Links added.
--- NOTE | 2017-05-18 18:40 | NUR ---
RN CLOSING NOTE PATIENT REMAINS STABLE THROUGHOUT THE DAY, NO SOB NOTED , PATIENT TURNED AND REPOSITIONED ALL NEEDS ATTENDED , PATIENT MEDICATION GIVEN PRN. PLAN OF CARE DISCUSSED WITH FAMILY. CONTINUATION OF CARE WILL BE ENDORSED TO ONCOMING SHIFT
[2017-05-18 20:00] VITALS: BP_SYST 113; BP_SYST 114; BP_DIAS 52; BP_DIAS 77
--- NOTE | 2017-05-18 20:00 | NUR ---
RN NOTES RECEIVED PATIENT AWAKE IN BED WITH FAMILY AT BEDSIDE. NO DISTRESS NOTED. BREATHING EVEN AND UNLABORED. NO PHYSICAL MANIFESTATION OF PAIN OR DISCOMFORT. ALERT AND RESPONSIVE, NOTED WITH EYE TRACKING, NON VERBAL. GTUBE PATENT AND INTACT. NO LEAKAGE. 0 RESIDUAL. VITAL SIGNS WNL. KEPT CLEAN AND DRY. WILL CONTINUE TO MONITOR.
[2017-05-18] MEDS: LORAZEPAM 0.5 MG TABLET GT PRN (20:38)
--- NOTE | 2017-05-18 21:56 | NUR ---
PT RECEIVED TRACHED ON [facility] VENT W/ NOTED SETTING. ALARMS SET AND AUDIBLE. VENT TO RED OUTLET. AMBU BAG AT [facility]. TRACH PATENT AND SECURE VIA TRACH TIES. NO SOB OR RESP DISTRESS NOTED ON SHIFT Addendum: 05/18/17 at 2157 by KRISTA HAMMOND RT Amended: Links added.
[2017-05-18] MEDS: ZOLPIDEM TARTRATE 10 MG TABLET PO PRN (22:24)
[2017-05-19] VITALS: BP 105/63
[2017-05-19] MEDS: VANCOMYCIN HCL 125 MG/2.5 ML ORAL.SUSP PO SCH ×4 (00:03→17:48)
[2017-05-19] MEDS: ALBUTEROL FS 2.5 MG/0.5 ML VIAL.NEB NEB SCH ×4 (01:21→19:31)
[2017-05-19 04:00] VITALS: BP 132/46
[2017-05-19] MEDS: BLOOD SUGAR DIAGNOSTIC 1 EACH STRIP IN SCH ×3 (05:42→17:49)
[2017-05-19] MEDS: METRONIDAZOLE 250 MG TABLET PO SCH ×3 (05:42→17:47)
--- NOTE | 2017-05-19 06:32 | NUR ---
RN CLOSING NOTES RESTING COMFORTABLY IN BED WITH NO RESPIRATORY DISTRESS, BREATHING EVEN AND UNLABORED. NO PHYSICAL MANIFESTATION OF PAIN OR DISCOMFORT. VENT SETTING WELL TOLERATED. VITAL SIGNS WNL. NO SIGNIFICANT CHANGE OF CONDITION. WILL ENDORSE TO AM NURSE FOR CONTINUITY OF CARE.
[2017-05-19] MEDS ORDERED: EPOETIN ALFA (10,000 UNIT) 10,000 UNIT/ML VIAL SQ ONE (07:00)
[2017-05-19 07:15] LABS: EOSINOPHILS % (AUTO) 0.1 % (0.0-6.0); HEMATOCRIT 25 % (33-45); HEMOGLOBIN 7.9 g/dL (11.5-14.8); LYMPHOCYTES % (AUTO) 4.8 % (20.0-44.0); MEAN CORPUSCULAR HEMOGLOBIN 29 PG (26.0-33.0); MEAN CORPUSCULAR HGB CONC 31 g/dl (31.0-36.0); MEAN CORPUSCULAR VOLUME 92 fL (82-100); MONOCYTES # (AUTO) 1.6 /CMM (0.1-1.30); MONOCYTES % (AUTO) 7.8 % (2.0-12.0); NEUTROPHILS % (AUTO) 87.3 % (43.0-81.0); PLATELET COUNT (AUTO) 259 /CMM (150-450); RED BLOOD CELL COUNT(AUTO) 2.74 MIL/uL (4.0-5.2); WHITE BLOOD COUNT (AUTO) 20.7 K/uL (4.3-11.0)
--- NOTE | 2017-05-19 07:30 | NUR ---
CUTTER AND EDGE TRIMMER NOTE: RECEIVED PATIENT IN BED, ASLEEP, BUT ABLE TO OPEN HER EYES AND AROUSABLE WHEN CALLING HER NAME AND TACTILE STIMULI. NO SOB. HOB ELEVATED. VENT-TRACH DEPENDENT. SATURATING WELL 100%. (R) AC IV LINE NOTED PATENT AND INTACT. (R) IJ CAMILO CATHETER NOTED INTACT W/ TRANSPARENT DRESSING NOTED. PT HAS A SCHEDULED HEMODIALYSIS TODAY. BP MEDS WILL BE HELD. ON GT FEEDING OF NOVASOURCE RENAL @ 25CC/HR TOLERATING WELL. BED ALARM AND LOCKED AT ALL TIMES. NEEDS ANTICIPATED. ON GARDENING SUPERVISOR A. FLUTTER HR= 69. NO S/S OF DISCOMFORT OR PAIN NOTED.
--- NOTE | 2017-05-19 07:35 | NUR ---
CUTTER OPERATOR NOTE: PATIENT ON CONTACT ISOLATION FOR MRSA NARES AND C. DIFF.
[2017-05-19 07:37] LABS: ALANINE AMINOTRANSFERASE 8 U/L (12-78); ALKALINE PHOSPHATASE 145 U/L (46-116); ASPARTATE AMINOTRANSFERASE 13 U/L (15-37); BILIRUBIN,TOTAL 0.3 mg/dL (0.2-1.0); CALCIUM, SERUM 8.4 mg/dL (8.5-10.1); CARBON DIOXIDE 21 mmol/L (21-32); CHLORIDE 99 mmol/L (98-107); GLUCOSE 120 mg/dL (74-106); MAGNESIUM 2.1 mg/dL (1.8-2.4); POTASSIUM 3.7 mmol/L (3.5-5.1); SODIUM SERUM 132 mmol/L (136-145); TOTAL PROTEIN, SERUM 5.9 g/dL (6.4-8.2)
[2017-05-19] MEDS: RENAL NOVASOURCE 1,000 ML BOTTLE GT PRN (07:39)
[2017-05-19 07:40] LABS: UREA NITROGEN, BLOOD 107 mg/dL (7-18)
[2017-05-19 08:00] VITALS: BP_SYST 136; BP_SYST 138; BP_DIAS 50; BP_DIAS 52
[2017-05-19 08:10] LABS: ALBUMIN 1.3 g/dL (3.4-5.0)
[2017-05-19] MEDS: AMIODARONE HCL 200 MG TABLET GT SCH ×2 (09:00→17:49)
--- NOTE | 2017-05-19 09:38 | NUR ---
AUTOMATIC ENGRAVER NOTE: RECEIVED A CALL FROM DR. MÁRQUEZ AND HE GAVE AN ORDER FOR THE PATIENT TO BE NPO AFTER MIDNIGHT DUE TO THE TUNNELED DIALYSIS CATHETER PLACEMENT TOMORROW AND AM LABS. ORDERS, NOTED AND CARRIED OUT.
[2017-05-19 09:41] LABS: BAND % (MANUAL) 1 % (0.0-5.0); EOSINOPHILS % (MANUAL) 1 % (0-4); LYMPHOCYTES % (MANUAL) 6 % (16-48); MONOCYTES % (MANUAL) 6 % (0-11.0); NEUTROPHILS % (MANUAL) 86 (42-76)
[2017-05-19] MEDS: FOLIC ACID 1 MG TABLET GT SCH (09:57)
[2017-05-19] MEDS: ACIDOPHILUS/BULGARICUS 1 EACH TAB.CHEW GT SCH ×2 (09:57→17:47)
[2017-05-19] MEDS: OLANZAPINE 2.5 MG TABLET GT SCH ×2 (09:57→17:49)
[2017-05-19] MEDS: FAMOTIDINE (20 MG) 20 MG TABLET GT SCH (09:57)
[2017-05-19] MEDS: PROSOURCE / PROSTAT (PYXIS) 30 ML UDC GT SCH ×2 (09:58→17:47)
[2017-05-19] MEDS: Z GUARD REMEDY 2 OZ OINT TP SCH (09:59)
[2017-05-19] MEDS: MUPIROCIN OINT 2% 22 GM TUBE SCH ×2 (09:59→21:44)
[2017-05-19] MEDS: SULFAMETHOXAZOLE/TRIMETHOPRIM 10 ML in IV D5W 250 ML IV SCH ×2 (10:00→21:24)
[2017-05-19 12:00] VITALS: BP 129/52
--- NOTE | 2017-05-19 14:30 | NUR ---
ASP NET DEVELOPER NOTE: PATIENT'S , JUAN CARLOS WAS PRESENT AT THE BEDSIDE. HE WAS INFORMED OF THE ORDER FROM DR. MÁRQUEZ THIS MORNING RE: TUNNELED DIALYSIS CATHETER FOR TOMORROW MORNING. JUAN CARLOS SIGNED THE INFORMED CONSENT AND WAS OK WITH THE PROCEDURE FOR TOMORROW. HE WAS AWARE THAT PATIENT WILL BE NPO AFTER MIDNIGHT AND GT FEEDING WILL BE HELD PER DR. MÁRQUEZ.
[2017-05-19 16:00] VITALS: BP 114/56
[2017-05-19] MEDS: CHOLESTYRAMINE/ASPARTAME 4 G/PKT PACKET PO SCH (18:08)
--- NOTE | 2017-05-19 18:45 | NUR ---
RT END OF THE SHIFT REPORT, PT. 82 Y OLD FEMALE REMAIN STABLE SINCE 0700 AWAKE, ALERT FOLLOWING COMMAND. TRACHED JUN # 6 ON MECHANICAL VENT, WITH NOTED SETTINGS. EQUAL CHEST RISE NOTED, TRACH IN GOOD POSITION AND SECURE. KETAN VENT WELL T/O DAY B/S RHONCHI BILATERALLY AND SUX'D FOR MOD. AMT OF YELLOW SECRETIONS. TX'S GIVEN INLINE AND NO ADVERSE REACTION NOTED. VENT PLUGGED INTO RED OUTLET, AMBU BAG AT THE BEDSIDE. CONTINUE FOR CARE AND MONITORING, REPORT WILL PASS TO PM SHIFT. Addendum: 05/19/17 at 1846 by SYDNI DASILVA RT Amended: Links added.
--- NOTE | 2017-05-19 18:45 | NUR ---
SPARE PERSON NOTE: PATIENT ON STABLE CONDITION, HOB ELEVATED. GT FEEDING OF NOVASOURCE RENAL @25CC/HR, TOLERATING WELL. NO RESIDUAL NOTED. ON PRODUCTION CHECKER, A. FLUTTER HR= 72. (R) AC IV LINE REMAINED PATENT AND INTACT. , JUAN CARLOS PRESENT AT THE BEDSIDE. VENT-TRACH DEPENDENT SATURATING 100%. NOT ON ANY FORM OF DISTRESS. NO FACIAL GRIMACING NOTED. BED ALARM AND LOCKED AT ALL TIMES. CALL LIGHT WITHIN REACH. WILL REPORT TO PM SHIFT NURSE FOR CONTINUITY OF CARE.
[2017-05-19 20:00] VITALS: BP 146/53
[2017-05-19] MEDS: LORAZEPAM 0.5 MG TABLET GT PRN (21:24)
[2017-05-20] VITALS: BP 119/43
[2017-05-20] MEDS: BLOOD SUGAR DIAGNOSTIC 1 EACH STRIP IN SCH ×5 (01:09→23:42)
[2017-05-20] MEDS: METRONIDAZOLE 250 MG TABLET PO SCH ×5 (01:10→23:29)
[2017-05-20] MEDS: VANCOMYCIN HCL 125 MG/2.5 ML ORAL.SUSP PO SCH ×5 (01:11→23:29)
[2017-05-20] MEDS: ALBUTEROL FS 2.5 MG/0.5 ML VIAL.NEB NEB SCH ×4 (01:15→20:03)
[2017-05-20 04:00] VITALS: BP 119/66
[2017-05-20 07:42] LABS: INR 1.2 (0.87-1.13)
[2017-05-20 07:54] LABS: ALANINE AMINOTRANSFERASE 12 U/L (12-78); ALKALINE PHOSPHATASE 115 U/L (46-116); ASPARTATE AMINOTRANSFERASE 13 U/L (15-37); BILIRUBIN,TOTAL 0.3 mg/dL (0.2-1.0); CALCIUM, SERUM 8.4 mg/dL (8.5-10.1); CARBON DIOXIDE 26 mmol/L (21-32); CHLORIDE 98 mmol/L (98-107); CREATININE 3.2 mg/dL (0.6-1.3); GLUCOSE 108 mg/dL (74-106); PHOSPHORUS 4.6 mg/dL (2.5-4.9); POTASSIUM 3.5 mmol/L (3.5-5.1); SODIUM SERUM 133 mmol/L (136-145); TOTAL PROTEIN, SERUM 6.1 g/dL (6.4-8.2)
--- NOTE | 2017-05-20 07:54 | NUR ---
MS RN NOTES PATIENT IN BED RESTING NO SOB OR ACUTE DISTRESS NOTED. PATIENT VENT DEPENDENT, VENT SETTINGS NOTED. BED IN LOW LOCKED POSITION. CALL LIGHT WITHIN REACH. PATIENT NPO AWAITING FOR HD CATH PLACEMENT. WILL CONTINUE TO MONITOR.
[2017-05-20 07:56] LABS: ALBUMIN 1.2 g/dL (3.4-5.0); UREA NITROGEN, BLOOD 84 mg/dL (7-18)
[2017-05-20 08:00] VITALS: BP 118/59
[2017-05-20 08:02] LABS: BASOPHILS % (AUTO) 0.2 % (0.0-2.0); HEMATOCRIT 25 % (33-45); HEMOGLOBIN 7.8 g/dL (11.5-14.8); LYMPHOCYTES # (AUTO) 0.9 /CMM (0.8-4.8); LYMPHOCYTES % (AUTO) 3.8 % (20.0-44.0); MEAN CORPUSCULAR HEMOGLOBIN 29 PG (26.0-33.0); MEAN CORPUSCULAR HGB CONC 31 g/dl (31.0-36.0); MEAN CORPUSCULAR VOLUME 93 fL (82-100); MONOCYTES # (AUTO) 1.8 /CMM (0.1-1.30); MONOCYTES % (AUTO) 7.7 % (2.0-12.0); NEUTROPHILS # (AUTO) 20.4 /CMM (1.8-8.9); NEUTROPHILS % (AUTO) 88.3 % (43.0-81.0); PLATELET COUNT (AUTO) 261 /CMM (150-450); RDW COEFFICIENT OF VARIATION 25.7 (11.5-15.0); RED BLOOD CELL COUNT(AUTO) 2.73 MIL/uL (4.0-5.2); WHITE BLOOD COUNT (AUTO) 23.1 K/uL (4.3-11.0)
[2017-05-20] MEDS: FAMOTIDINE (20 MG) 20 MG TABLET GT SCH (09:00)
[2017-05-20] MEDS: FOLIC ACID 1 MG TABLET GT SCH (09:00)
[2017-05-20] MEDS: PROSOURCE / PROSTAT (PYXIS) 30 ML UDC GT SCH ×2 (09:00→17:10)
[2017-05-20] MEDS: ACIDOPHILUS/BULGARICUS 1 EACH TAB.CHEW GT SCH ×2 (09:00→17:07)
[2017-05-20] MEDS: AMIODARONE HCL 200 MG TABLET GT SCH ×2 (09:00→17:08)
[2017-05-20] MEDS: OLANZAPINE 2.5 MG TABLET GT SCH ×2 (09:00→17:00)
[2017-05-20] MEDS: SULFAMETHOXAZOLE/TRIMETHOPRIM 10 ML in IV D5W 250 ML IV SCH ×2 (09:17→21:36)
[2017-05-20] MEDS: MUPIROCIN OINT 2% 22 GM TUBE SCH ×2 (09:18→21:38)
[2017-05-20] MEDS: Z GUARD REMEDY 2 OZ OINT TP SCH (09:18)
[2017-05-20 09:59] LABS: LYMPHOCYTES % (MANUAL) 5 % (16-48); MONOCYTES % (MANUAL) 5 % (0-11.0); NEUTROPHILS % (MANUAL) 90 (42-76)
[2017-05-20 12:00] VITALS: BP 116/51
[2017-05-20] MEDS ORDERED: ANESTHESIA TRAY IN PYXIS 1 EA TRAY MC ONE (12:34)
[2017-05-20] MEDS ORDERED: HEPARIN SODIUM, PORCINE 1,000 UNIT/ML VIAL ONE (12:34)
[2017-05-20] MEDS ORDERED: LIDOCAINE 1% INJ 50 ML MDV IJ ONE (12:34)
[2017-05-20] MEDS ORDERED: IOHEXOL 50 ML IV ONE (12:35)
[2017-05-20] MEDS ORDERED: ROCURONIUM BROMIDE 50 MG/5 ML ONE (13:21)
[2017-05-20] MEDS ORDERED: IPRATROPIUM NEB FS 0.5 MG/2.5 ML AMPUL.NEB ONE ×2 (14:11)
[2017-05-20] MEDS ORDERED: ALBUTEROL FS 2.5 MG/3 ML VIAL.NEB ONE (14:11)
[2017-05-20] MEDS ORDERED: ALBUTEROL 17GM INHALER ONE (14:14)
[2017-05-20] MEDS ORDERED: PHENYLEPHRINE 40 MG in IV D5W 250 ML IV PRN (15:00)
--- NOTE | 2017-05-20 15:00 | NUR ---
LAB SUPPORT TECH NOTES PATIENT RETURNED FROM OR POST OP. PATIENT NOTED OPENING EYES BUT SEDATED. AT BEDSIDE. VENT DEPENDENT VENT SETTINGS NOTED. VS WNL WILL CONTINUE TO MONITOR.
[2017-05-20 16:00] VITALS: BP_SYST 134; BP_SYST 139; BP_DIAS 57
[2017-05-20] MEDS: RENAL NOVASOURCE 1,000 ML BOTTLE GT PRN (17:25)
[2017-05-20] MEDS: CHOLESTYRAMINE/ASPARTAME 4 G/PKT PACKET PO SCH (18:00)
--- NOTE | 2017-05-20 18:21 | NUR ---
RT END OF THE SHIFT REPORT, PT. 82 Y OLD FEMALE REMAIN STABLE SINCE REC. 0700 AM. TRACH'D JUN # 6 ON MECHANICAL VENT, WITH NOTED SETTINGS. EQUAL CHEST RISE NOTED, TRACH IN GOOD POSITION AND SECURE. HME CHANGED KETAN VENT WELL T/O DAY B/S RHONCHI BILATERALLY AND SUX'D FOR SMALL AMT OF SECRETIONS. TX'S GIVEN INLINE KETAN WELL NO ADVERSE REACTION NOTED. VENT PLUGGED INTO RED OUTLET, AMBU BAG AT THE BEDSIDE. CONTINUE FOR CARE AND MONITORING, REPORT WILL PASS TO PM SHIFT. Addendum: 05/20/17 at 1822 by SYDNI DASILVA RT Amended: Links added.
--- NOTE | 2017-05-20 18:31 | NUR ---
SKI TOP TRIMMER NOTES PATIENT IN BED RESTING NO SOB OR ACUTE DISTRESS NOTED ALL DUE MEDICATIONS ADMINISTERED. ALL NEEDS MET. PATIENT CLOSELY MONITORED. AT BEDSIDE. VENT SETTINGS NOTED. WILL ENDORSE TO PM SHIFT HANNAH.
--- NOTE | 2017-05-20 19:30 | NUR ---
RN/TELE NOTES: RECEIVED PT. IN BED W/HOB ELEVATED. W/ VENT. SETTING TOLERATING WELL. NO S/S FACIAL GRIMACE OR MOANING NOTED. NO S/S OF RESPIRATORY DISTRESS NOTED. GT FEEDING OF NOVASOURCE RENAL @25CC/HR, TOLERATING WELL. NO RESIDUAL NOTED. ON TELE MONITOR A. FLUTTER HR= 72. (R) AC IV LINE REMAINED PATENT AND INTACT. BED ALARM AND LOCKED AT ALL TIMES. CALL LIGHT WITHIN REACH. WILL CONTINUE TO MONITOR.
[2017-05-20 20:00] VITALS: BP 114/51
[2017-05-20] MEDS: ZOLPIDEM TARTRATE 10 MG TABLET PO PRN (23:30)
[2017-05-21] VITALS: BP 121/55
[2017-05-21] MEDS: ALBUTEROL FS 2.5 MG/0.5 ML VIAL.NEB NEB SCH ×4 (01:57→19:13)
[2017-05-21 04:00] VITALS: BP 106/60
[2017-05-21] MEDS: VANCOMYCIN HCL 125 MG/2.5 ML ORAL.SUSP PO SCH ×3 (05:30→17:45)
[2017-05-21] MEDS: METRONIDAZOLE 250 MG TABLET PO SCH ×3 (05:31→17:45)
[2017-05-21] MEDS: BLOOD SUGAR DIAGNOSTIC 1 EACH STRIP IN SCH ×3 (05:41→17:44)
--- NOTE | 2017-05-21 07:26 | NUR ---
RN/TELE NOTES: NO ACUTE CHANGES NOTED DURING THIS SHIFT. REPORT GIVEN TO AM SHIFT NURSE FOR HANNAH.
--- NOTE | 2017-05-21 07:35 | NUR ---
CATERING DRIVER NOTE: PATIENT IN BED, AWAKE AND OPEN HER EYES. NONVERBAL. NOT ON ANY FORM OF DISTRESS. VENT-TRACH DEPENDENT SATURATING 100%. HOB ELEVATED. GT FEEDING OF NOVASOURCE RENAL@25CC/HR TOLERATING WELL. (R) AC IV LINE NOTED INTACT AND PATENT. AFEBRILE. ON FORM BLOCK MAKER, A. FLUTTER HR= 67. BED ALARM AND LOCKED AT ALL TIMES. ON CONTACT ISOLATION FOR C. DIFF AND MRSA NARES. NEEDS ANTICIPATED. ON HEMODIALYSIS SCHEDULE FOR TODAY.
[2017-05-21 08:00] VITALS: BP 125/40
[2017-05-21] MEDS: SULFAMETHOXAZOLE/TRIMETHOPRIM 10 ML in IV D5W 250 ML IV SCH ×2 (08:22→20:40)
[2017-05-21] MEDS: ACIDOPHILUS/BULGARICUS 1 EACH TAB.CHEW GT SCH ×2 (08:23→17:45)
[2017-05-21] MEDS: OLANZAPINE 2.5 MG TABLET GT SCH ×2 (08:23→17:45)
[2017-05-21] MEDS: Z GUARD REMEDY 2 OZ OINT TP SCH (08:24)
[2017-05-21] MEDS: PROSOURCE / PROSTAT (PYXIS) 30 ML UDC GT SCH ×2 (08:24→17:45)
[2017-05-21] MEDS: FAMOTIDINE (20 MG) 20 MG TABLET GT SCH (08:24)
[2017-05-21] MEDS: MUPIROCIN OINT 2% 22 GM TUBE SCH ×2 (08:24→20:41)
[2017-05-21] MEDS: FOLIC ACID 1 MG TABLET GT SCH (08:24)
[2017-05-21] MEDS: AMIODARONE HCL 200 MG TABLET GT SCH ×2 (08:30→18:23)
[2017-05-21] MEDS: LORAZEPAM 0.5 MG TABLET GT PRN (10:45)
--- NOTE | 2017-05-21 11:30 | NUR ---
QUARRY BOSS NOTE: PATIENT HAD HEMODIALYSIS TODAY AND NO OUTPUT. PER HEMODIALYSIS NURSE, HE DID CLEANING ONLY FOR TODAY.
[2017-05-21 12:00] VITALS: BP 102/47
[2017-05-21 16:00] VITALS: BP_SYST 100; BP_SYST 114; BP_DIAS 38
[2017-05-21] MEDS: RENAL NOVASOURCE 1,000 ML BOTTLE GT PRN (17:36)
--- NOTE | 2017-05-21 17:49 | NUR ---
RT END OF THE SHIFT REPORT, PT. 82 Y OLD FEMALE REMAIN STABLE SINCE REC. IN AM. TRACH'D JUN # 6 ON MECHANICAL VENT, WITH NOTED SETTINGS. EQUAL CHEST RISE NOTED, TRACH IN GOOD POSITION AND SECURE. HME CHANGED KETAN VENT WELL T/O DAY B/S RHONCHI BILATERALLY AND SUX'D FOR SMALL AMT OF SECRETIONS. TX'S GIVEN INLINE KETAN WELL NO ADVERSE REACTION NOTED. VENT PLUGGED INTO RED OUTLET, AMBU BAG AT THE BEDSIDE. CONTINUE FOR CARE AND MONITORING, REPORT WILL PASS TO PM SHIFT. Addendum: 05/21/17 at 1752 by SYDNI DASILVA RT Amended: Links added.
[2017-05-21] MEDS: CHOLESTYRAMINE/ASPARTAME 4 G/PKT PACKET PO SCH (18:22)
--- NOTE | 2017-05-21 19:52 | NUR ---
BOBBIN TRUCKER NOTE: PATIENT IN BED, AWAKE AND OPEN HER EYES. NONVERBAL. NOT ON ANY FORM OF DISTRESS. VENT-TRACH DEPENDENT SATURATING 100%. HOB ELEVATED. GT FEEDING OF NOVASOURCE RENAL@25CC/HR TOLERATING WELL. (R) AC IV LINE NOTED INTACT AND PATENT. AFEBRILE WITHIN THE SHIFT. ON REFLOW OPERATOR, A. FLUTTER HR= 71. BED ALARM AND LOCKED AT ALL TIMES. ON CONTACT ISOLATION FOR C. DIFF AND MRSA NARES. DAUGHTER PRESENT AT THE BEDSIDE. REPORT GIVEN TO PM SHIFT NURSE FOR CONTINUITY OF CARE.
--- NOTE | 2017-05-21 19:53 | NUR ---
FULL STACK ENGINEER NOTE: PATIENT HAD NO EPISODE OF DIARRHEA DURING THE SHIFT.
[2017-05-21 20:00] VITALS: BP 111/58
[2017-05-22] VITALS: BP_SYST 110; BP_SYST 128; BP_DIAS 52; BP_DIAS 66
[2017-05-22] MEDS: INSULIN ASPART/LISPRO 100 UNIT/ML CARTRIDGE SQ PRN ×2 (00:01→06:32)
[2017-05-22] MEDS: ALBUTEROL FS 2.5 MG/0.5 ML VIAL.NEB NEB SCH ×4 (01:15→19:39)
[2017-05-22 04:00] VITALS: BP 123/56
--- NOTE | 2017-05-22 04:10 | NUR ---
PT RECEIVED TRACHED ON THE VENT WITH NOTED SETTINGS. VENT ALARMS ARE SET AND AUDIBLE WITH AMBU BAG AT BEDSIDE. TRACH IS SECURED AND PASSENGER RATE CLERK IS DONE. VENT IS PLUGGED INTO RED OUTLET. Q6 BREATHING TX GIVEN PER MD ORDERS. NO ADVERSE REACTION NOTED. SX PRN. WILL CONTINUE TO MONITOR.
[2017-05-22] MEDS: VANCOMYCIN HCL 125 MG/2.5 ML ORAL.SUSP PO SCH ×4 (06:15→17:31)
[2017-05-22] MEDS: METRONIDAZOLE 250 MG TABLET PO SCH ×2 (06:15)
[2017-05-22] MEDS: BLOOD SUGAR DIAGNOSTIC 1 EACH STRIP IN SCH ×4 (06:32→17:12)
[2017-05-22 07:39] LABS: EOSINOPHILS % (AUTO) 0.1 % (0.0-6.0); HEMATOCRIT 24 % (33-45); HEMOGLOBIN 7.5 g/dL (11.5-14.8); LYMPHOCYTES # (AUTO) 0.6 /CMM (0.8-4.8); LYMPHOCYTES % (AUTO) 3.4 % (20.0-44.0); MEAN CORPUSCULAR HEMOGLOBIN 30 PG (26.0-33.0); MEAN CORPUSCULAR HGB CONC 32 g/dl (31.0-36.0); MEAN CORPUSCULAR VOLUME 93 fL (82-100); MONOCYTES # (AUTO) 1.1 /CMM (0.1-1.30); MONOCYTES % (AUTO) 5.8 % (2.0-12.0); NEUTROPHILS # (AUTO) 17.1 /CMM (1.8-8.9); NEUTROPHILS % (AUTO) 90.7 % (43.0-81.0); PLATELET COUNT (AUTO) 330 /CMM (150-450); RDW COEFFICIENT OF VARIATION 26.1 (11.5-15.0); RED BLOOD CELL COUNT(AUTO) 2.54 MIL/uL (4.0-5.2); WHITE BLOOD COUNT (AUTO) 18.8 K/uL (4.3-11.0)
--- NOTE | 2017-05-22 07:45 | NUR ---
SILO ERECTOR NOTE: RECEIVED PATIENT IN BED, ASLEEP, BUT AROUSABLE W/ TACTILE STIMULI. OPENED HER EYES. NONVERBAL. ON VENT-TRACH DEPENDENT SATURATING 100%. ON WEIGHT COUNT OPERATOR, A. FLUTTER HR= 68. HOB ELEVATED W/ GT FEEDING OF NOVASOURCE RENAL @25CC/HR AND TOLERATING WELL. (R) AC IV PERIPHERAL LINE NOTED PATENT AND INTACT. (R) IJ HD CATH NOTED W/ TRANSPARENT DRESSING CLEAN AND DRY. ON CONTACT ISOLATION FOR C. DIFF AND MRSA NARES. BED ALARM AND LOCKED AT ALL TIMES. NEEDS ANTICIPATED.
[2017-05-22 08:00] VITALS: BP 114/40
[2017-05-22] MEDS: FOLIC ACID 1 MG TABLET GT SCH (09:05)
[2017-05-22] MEDS: PROSOURCE / PROSTAT (PYXIS) 30 ML UDC GT SCH ×2 (09:05→16:50)
[2017-05-22] MEDS: ACIDOPHILUS/BULGARICUS 1 EACH TAB.CHEW GT SCH ×2 (09:05→16:50)
[2017-05-22] MEDS: FAMOTIDINE (20 MG) 20 MG TABLET GT SCH (09:05)
[2017-05-22] MEDS: OLANZAPINE 2.5 MG TABLET GT SCH ×2 (09:05→16:50)
--- NOTE | 2017-05-22 09:20 | NUR ---
COATING MACHINE HELPER NOTE: PATIENT WAS NOTED W/ 1 LOOSE STOOL BROWN IN COLOR. PERICARE WAS PROVIDED. Z-GUARD WAS APPLIED.
[2017-05-22] MEDS: SULFAMETHOXAZOLE/TRIMETHOPRIM 10 ML in IV D5W 250 ML IV SCH ×2 (09:51→20:30)
[2017-05-22] MEDS: Z GUARD REMEDY 2 OZ OINT TP SCH (09:52)
[2017-05-22] MEDS: MUPIROCIN OINT 2% 22 GM TUBE SCH ×2 (09:52→20:30)
[2017-05-22] MEDS: AMIODARONE HCL 200 MG TABLET GT SCH ×2 (10:00→16:50)
[2017-05-22 12:00] VITALS: BP 120/56
[2017-05-22 16:00] VITALS: BP 100/33
[2017-05-22] MEDS: RENAL NOVASOURCE 1,000 ML BOTTLE GT PRN (17:46)
[2017-05-22] MEDS: CHOLESTYRAMINE/ASPARTAME 4 G/PKT PACKET PO SCH (19:26)
--- NOTE | 2017-05-22 19:48 | NUR ---
PAPER MILL SUPERINTENDENT NOTE: PATIENT IN BED, AWAKE AND NOT ON ANY FORM OF DISTRESS. DAUGHTER PRESENT AT THE BEDSIDE. HOB ELEVATED. GT FEEDING OF NOVASOURCE RENAL @25CC/HR TOLERATING WELL. VENT-TRACH DEPENDENT SATURATING 100%. ON PORTABLE SAWYER, A. FLUTTER HR 68. (R) AC IV PERIPHERAL LINE PATENT AND INTACT. BED ALARM AND LOCKED AT ALL TIMES. CALL LIGHT IN PLACED WITHIN REACH. REPORT GIVEN TO PM SHIFT NURSE FOR CONTINUITY OF CARE.
[2017-05-22 20:00] VITALS: BP 112/56
[2017-05-22] MEDS: ACETAMINOPHEN 650 MG/20.3 ML UDC GT PRN (20:31)
[2017-05-23] VITALS: BP 102/47
[2017-05-23] MEDS: VANCOMYCIN HCL 125 MG/2.5 ML ORAL.SUSP PO SCH ×5 (01:24→23:16)
[2017-05-23] MEDS: INSULIN ASPART/LISPRO 100 UNIT/ML CARTRIDGE SQ PRN ×2 (01:25→05:25)
[2017-05-23] MEDS: ALBUTEROL FS 2.5 MG/0.5 ML VIAL.NEB NEB SCH ×4 (01:42→20:01)
[2017-05-23 04:00] VITALS: BP 133/53
[2017-05-23] MEDS: BLOOD SUGAR DIAGNOSTIC 1 EACH STRIP IN SCH ×4 (05:25→18:38)
[2017-05-23 08:00] VITALS: BP 143/46
--- NOTE | 2017-05-23 08:06 | NUR ---
PATIENT SERVICES ASSISTANT INITIAL NOTE PT RECEIVED IN BED . A/O X1-2 AND ABLE TO MOUTH SOME WORDS. ON MECH VENT WELL TOLERATING VENT SETTINGS WELL. PT ON TELE-AFLUTTER. IV RIGHT AC CLEAN, DRY AND INTACT NOTED RIGHT HAND SWELLING. PT HAS CLEVE PAGE FOR DIALYSIS - CATH REMAINS CLEAN AND DRY. GTUBE FEEDING IN PLACE AND TOLERATED WELL- NO RESIDUALS NOTED. HOB ELEVATED AND ON ASPIRATION PRECAUTIONS. CONTACT ISOLATION PRECAUTIONS OBSERVED AND FOLLOWED. RN WILL CONTINUE TO MONITOR THROUGHOUT THE DAY.
[2017-05-23] MEDS: FOLIC ACID 1 MG TABLET GT SCH (09:16)
[2017-05-23] MEDS: PROSOURCE / PROSTAT (PYXIS) 30 ML UDC GT SCH ×2 (09:16→16:20)
[2017-05-23] MEDS: FAMOTIDINE (20 MG) 20 MG TABLET GT SCH (09:16)
[2017-05-23] MEDS: ACIDOPHILUS/BULGARICUS 1 EACH TAB.CHEW GT SCH ×2 (09:16→16:19)
[2017-05-23] MEDS: AMIODARONE HCL 200 MG TABLET GT SCH ×2 (09:16→16:20)
[2017-05-23] MEDS: OLANZAPINE 2.5 MG TABLET GT SCH ×2 (09:16→16:19)
[2017-05-23] MEDS: SULFAMETHOXAZOLE/TRIMETHOPRIM 10 ML in IV D5W 250 ML IV SCH ×2 (09:17→20:41)
[2017-05-23] MEDS: Z GUARD REMEDY 2 OZ OINT TP SCH (09:18)
[2017-05-23] MEDS: MUPIROCIN OINT 2% 22 GM TUBE SCH ×2 (09:19→20:42)
[2017-05-23 12:00] VITALS: BP 135/51
[2017-05-23 14:14] LABS: CALCIUM, SERUM 8.2 mg/dL (8.5-10.1); CARBON DIOXIDE 23 mmol/L (21-32); CHLORIDE 96 mmol/L (98-107); CREATININE 3.6 mg/dL (0.6-1.3); GLUCOSE 128 mg/dL (74-106); SODIUM SERUM 129 mmol/L (136-145)
[2017-05-23] MEDS ORDERED: EPOETIN ALFA (10,000 UNIT) 10,000 UNIT/ML VIAL IV ONE (15:00)
[2017-05-23 15:09] LABS: UREA NITROGEN, BLOOD 88 mg/dL (7-18)
[2017-05-23 16:00] VITALS: BP 131/50
[2017-05-23 16:17] LABS: HEMOGLOBIN 7.3 g/dL (11.5-14.8)
--- NOTE | 2017-05-23 16:50 | NUR ---
RT PT RECEIVED TRACHED ON THE VENT WITH NOTED SETTINGS. PT IS AWAKE AND TRACKS WITH EYES. VENT ALARMS ARE SET AND AUDIBLE WITH BVM BY BEDSIDE. ANY COMMODITY BUYER CUFF PRESSURE NOTED. VENT IS PLUGGED INTO RED OUTLET. NO RESPIRATORY DISTRESS NOTED AT THIS TIME, WILL CONTINUE TO MONITOR.
--- NOTE | 2017-05-23 18:23 | NUR ---
RN CLOSING NOTE Patient remains stable throughout the day. All medications rendered GT intact and patent throughout shift, No SOB noted, patient tolerated vent settings well, no pain noted throughout the day. Vital signs with normal limits. Patient kept clean, dry, and comfortable at all times. Labs monitored throughout the shift, continued on Novosource @ 25ml/hr tolerating well no residuals noted , circulation noted without issues, patient remains alert at this time family at bedside. RN will endorse continuation of care to pm RN.
[2017-05-23] MEDS: CHOLESTYRAMINE/ASPARTAME 4 G/PKT PACKET PO SCH (18:38)
[2017-05-23 20:00] VITALS: BP 132/50
--- NOTE | 2017-05-23 20:00 | NUR ---
RN INITIAL NOTE PT RECEIVED IN BED . A/O X1-2 AND ABLE TO MOUTH SOME WORDS. ON MECH VENT WELL TOLERATING VENT SETTINGS WELL. PT ON TELE-AFLUTTER. IV RIGHT AC CLEAN, DRY AND INTACT NOTED RIGHT HAND SWELLING. PT HAS CLEVE PAGE FOR DIALYSIS - CATH REMAINS CLEAN AND DRY. GTUBE FEEDING IN PLACE- NO RESIDUALS NOTED. HOB ELEVATED AND ON ASPIRATION PRECAUTIONS. CONTACT ISOLATION PRECAUTIONS OBSERVED AND FOLLOWED. RN WILL CONTINUE TO MONITOR THROUGHOUT THE DAY.
[2017-05-23] MEDS: ZOLPIDEM TARTRATE 10 MG TABLET PO PRN (23:17)
[2017-05-23] MEDS: ACETAMINOPHEN 650 MG/20.3 ML UDC GT PRN (23:39)
[2017-05-24] VITALS: BP 139/62
[2017-05-24] MEDS: BLOOD SUGAR DIAGNOSTIC 1 EACH STRIP IN SCH ×5 (00:11→22:49)
[2017-05-24] MEDS: ALBUTEROL FS 2.5 MG/0.5 ML VIAL.NEB NEB SCH ×4 (02:04→19:30)
[2017-05-24 04:00] VITALS: BP 103/44
[2017-05-24] MEDS: RENAL NOVASOURCE 1,000 ML BOTTLE GT PRN (05:27)
[2017-05-24] MEDS: VANCOMYCIN HCL 125 MG/2.5 ML ORAL.SUSP PO SCH ×4 (05:28→22:37)
--- NOTE | 2017-05-24 07:11 | NUR ---
RN CLOSING NOTE PT IN BED . A/O X1-2 AND ABLE TO MOUTH SOME WORDS. ON MECH VENT WELL TOLERATING VENT SETTINGS WELL. PT ON TELE-AFLUTTER. IV RIGHT AC CLEAN, DRY AND INTACT NOTED RIGHT HAND SWELLING. PT HAS CLEVE PAGE FOR DIALYSIS - CATH REMAINS CLEAN AND DRY. GTUBE FEEDING IN PLACE- NO RESIDUALS NOTED. HOB ELEVATED AND ON ASPIRATION PRECAUTIONS. CONTACT ISOLATION PRECAUTIONS OBSERVED AND FOLLOWED. RN WILL CONTINUE TO MONITOR THROUGHOUT THE DAY.
[2017-05-24 08:00] VITALS: BP 112/44
[2017-05-24] MEDS: ACIDOPHILUS/BULGARICUS 1 EACH TAB.CHEW GT SCH ×2 (09:38→17:34)
[2017-05-24] MEDS: AMIODARONE HCL 200 MG TABLET GT SCH ×2 (09:38→17:36)
[2017-05-24] MEDS: OLANZAPINE 2.5 MG TABLET GT SCH ×2 (09:38→17:37)
[2017-05-24] MEDS: FAMOTIDINE (20 MG) 20 MG TABLET GT SCH (09:38)
[2017-05-24] MEDS: FOLIC ACID 1 MG TABLET GT SCH (09:38)
[2017-05-24] MEDS: SULFAMETHOXAZOLE/TRIMETHOPRIM 10 ML in IV D5W 250 ML IV SCH ×2 (09:50→22:36)
[2017-05-24] MEDS: Z GUARD REMEDY 2 OZ OINT TP SCH (09:51)
[2017-05-24] MEDS: MUPIROCIN OINT 2% 22 GM TUBE SCH ×2 (09:51→22:38)
[2017-05-24 12:00] VITALS: BP 119/60
[2017-05-24] MEDS: PROSOURCE / PROSTAT (PYXIS) 30 ML UDC GT SCH ×2 (12:20→17:37)
[2017-05-24 16:00] VITALS: BP 123/45
[2017-05-24] MEDS: CHOLESTYRAMINE/ASPARTAME 4 G/PKT PACKET PO SCH (18:18)
[2017-05-24 20:00] VITALS: BP 119/40
--- NOTE | 2017-05-24 20:00 | NUR ---
RN INITIAL NOTE PT RECEIVED IN BED . A/O X1-2 AND ABLE TO MOUTH SOME WORDS. ON MECH VENT WELL TOLERATING VENT SETTINGS WELL. PT ON TELE-AFLUTTER. IV RIGHT AC CLEAN, DRY AND INTACT NOTED RIGHT HAND SWELLING. PT HAS CLEVE PAGE FOR DIALYSIS - CATH REMAINS CLEAN AND DRY. GTUBE FEEDING IN PLACE- NO RESIDUALS NOTED. HOB ELEVATED AND ON ASPIRATION PRECAUTIONS. HD IN PROCESS. CONTACT ISOLATION PRECAUTIONS OBSERVED AND FOLLOWED. RN WILL CONTINUE TO MONITOR THROUGHOUT THE DAY.
--- NOTE | 2017-05-24 20:05 | NUR ---
Received pt on vent support , pt stable on current settings no sob or distress noted, alarms are on and audible, ventilator is plugged into red outlet, ambu bag at bedside. Addendum: 05/24/17 at 2006 by KRISTA HAMMOND RT Amended: Links added.
[2017-05-24] MEDS: ACETAMINOPHEN 650 MG/20.3 ML UDC GT PRN (23:31)
[2017-05-24] MEDS: ZOLPIDEM TARTRATE 10 MG TABLET PO PRN (23:31)
[2017-05-25] VITALS: BP 129/44
[2017-05-25] MEDS: ALBUTEROL FS 2.5 MG/0.5 ML VIAL.NEB NEB SCH ×4 (01:16→19:10)
[2017-05-25 04:00] VITALS: BP 112/44
[2017-05-25] MEDS: RENAL NOVASOURCE 1,000 ML BOTTLE GT PRN (05:11)
[2017-05-25] MEDS: BLOOD SUGAR DIAGNOSTIC 1 EACH STRIP IN SCH ×4 (05:19→23:20)
[2017-05-25] MEDS: VANCOMYCIN HCL 125 MG/2.5 ML ORAL.SUSP PO SCH ×4 (05:19→23:20)
--- NOTE | 2017-05-25 06:05 | NUR ---
RN CLOSING NOTE PT IN BED . A/O X1-2 AND ABLE TO MOUTH SOME WORDS. ON MECH VENT WELL TOLERATING VENT SETTINGS WELL. PT ON TELE-AFLUTTER 82. IV RIGHT AC CLEAN TKO, DRY AND INTACT NOTED RIGHT HAND SWELLING. PT HAS CLEVE PAGE FOR DIALYSIS - CATH REMAINS CLEAN AND DRY. HD DONE / 2400L OUT. GTUBE FEEDING IN PLACE- NO RESIDUALS NOTED. HOB ELEVATED AND ON ASPIRATION PRECAUTIONS. CONTACT ISOLATION PRECAUTIONS OBSERVED AND FOLLOWED. RN WILL CONTINUE TO MONITOR THROUGHOUT THE DAY.
--- NOTE | 2017-05-25 07:56 | NUR ---
SUPERVISOR HOME RESTORATION SERVICE INITIAL NOTE PT RECEIVED IN BED . A/O X1-2 AND ABLE TO MOUTH SOME WORDS. ON MECH VENT WELL TOLERATING VENT SETTINGS WELL. PT ON TELE-AFLUTTER. IV RIGHT AC CLEAN, DRY AND INTACT NOTED RIGHT HAND SWELLING. PT HAS CLEVE PAGE FOR DIALYSIS - CATH REMAINS CLEAN AND DRY PATIENT CURRENTLY RECEIVING HD TOLERATING WELL AT THIS TIME HD NURSE AT BEDSIDE . GTUBE FEEDING IN PLACE AND TOLERATED WELL- NO RESIDUALS NOTED. HOB ELEVATED AND ON ASPIRATION PRECAUTIONS. CONTACT ISOLATION PRECAUTIONS OBSERVED AND FOLLOWED. RN WILL CONTINUE TO MONITOR THROUGHOUT THE DAY.
[2017-05-25 08:00] VITALS: BP 85/36
[2017-05-25] MEDS: SULFAMETHOXAZOLE/TRIMETHOPRIM 10 ML in IV D5W 250 ML IV SCH ×2 (08:27→21:04)
[2017-05-25] MEDS: ACIDOPHILUS/BULGARICUS 1 EACH TAB.CHEW GT SCH ×2 (08:28→17:56)
[2017-05-25] MEDS: FOLIC ACID 1 MG TABLET GT SCH (08:28)
[2017-05-25] MEDS: AMIODARONE HCL 200 MG TABLET GT SCH ×2 (08:28→17:57)
[2017-05-25] MEDS: OLANZAPINE 2.5 MG TABLET GT SCH ×2 (08:29→17:56)
[2017-05-25] MEDS: FAMOTIDINE (20 MG) 20 MG TABLET GT SCH (08:29)
[2017-05-25] MEDS: PROSOURCE / PROSTAT (PYXIS) 30 ML UDC GT SCH ×2 (08:29→17:56)
[2017-05-25] MEDS: Z GUARD REMEDY 2 OZ OINT TP SCH (08:30)
[2017-05-25] MEDS: MUPIROCIN OINT 2% 22 GM TUBE SCH ×2 (08:31→21:05)
[2017-05-25 12:00] VITALS: BP 118/40
[2017-05-25] MEDS ORDERED: EPOETIN ALFA (10,000 UNIT) 10,000 UNIT/ML VIAL IV ONE (13:00)
[2017-05-25 15:26] LABS: HEMOGLOBIN 7.7 g/dL (11.5-14.8)
[2017-05-25 16:00] VITALS: BP 101/40
[2017-05-25] MEDS: ACETAMINOPHEN 650 MG/20.3 ML UDC GT PRN (17:56)
[2017-05-25] MEDS: CHOLESTYRAMINE/ASPARTAME 4 G/PKT PACKET PO SCH (18:00)
--- NOTE | 2017-05-25 18:03 | NUR ---
RN CLOSING NOTE Patient stable throughout the day , continue to monitor heart rhythms fluid and electrolytes monitored and replenished via iv fluids , patient remains without injury vitals within normal limits , no temp noted throughout the shift , no sob noted patient tolerating vent settings well, patient unable to ambulate, however patient turned and repositioned q2hrs , skin remains intact, labs monitored via nursing staff and MD , care plan reviewed with patient , RN unable to assess patients understanding g-tube feeding remain In place and patent, no residuals noted at this time. Will notify MD if any changes.Rn will endorse care to pm rn
--- NOTE | 2017-05-25 19:10 | NUR ---
PT RCVD TRACHED ON VENT WITH NOTED SETTINGS. VENT PLUGGED INTO RED OUTLET, VENT ALARMS WORKING AND AUDIBLE. AMBU BAG AT BEDSIDE. SUCTIONED MODERATE AMOUNT OF PALE YELLOW THICK SECRETIONS. NO RESPIRATORY DISTRESS NOTED AT THIS TIME. WILL CONTINUE TO MONITOR THE PT.
[2017-05-25 20:00] VITALS: BP 119/46
--- NOTE | 2017-05-25 20:00 | NUR ---
RN INITIAL NOTE PT RECEIVED IN BED . A/O X1-2 AND ABLE TO MOUTH SOME WORDS. ON MECH VENT WELL TOLERATING VENT SETTINGS WELL. PT ON TELE-AFLUTTER. IV RIGHT AC CLEAN, DRY AND INTACT NOTED RIGHT HAND SWELLING. PT HAS CLEVE PAGE FOR DIALYSIS - CATH REMAINS CLEAN AND DRY PATIENT CURRENTLY RECEIVING HD TOLERATING WELL AT THIS TIME HD NURSE AT BEDSIDE . GTUBE FEEDING IN PLACE AND TOLERATED WELL- NO RESIDUALS NOTED. HOB ELEVATED AND ON ASPIRATION PRECAUTIONS. CONTACT ISOLATION PRECAUTIONS OBSERVED AND FOLLOWED.WILL CONTINUE TO MONITOR.
[2017-05-25] MEDS: LORAZEPAM 0.5 MG TABLET GT PRN (21:04)
[2017-05-26] VITALS (7 sets, daily range): BP systolic 106–134; BP diastolic 42–71
[2017-05-26] MEDS: ALBUTEROL FS 2.5 MG/0.5 ML VIAL.NEB NEB SCH ×4 (01:19→19:41)
[2017-05-26] MEDS: RENAL NOVASOURCE 1,000 ML BOTTLE GT PRN (05:22)
[2017-05-26] MEDS: VANCOMYCIN HCL 125 MG/2.5 ML ORAL.SUSP PO SCH ×3 (05:22→17:24)
[2017-05-26] MEDS: BLOOD SUGAR DIAGNOSTIC 1 EACH STRIP IN SCH ×3 (05:23→17:23)
[2017-05-26] MEDS: ACETAMINOPHEN 650 MG/20.3 ML UDC GT PRN (05:32)
--- NOTE | 2017-05-26 06:45 | NUR ---
RN CLOSING NOTE NO CHANGE IN PT CONDITION. PT IN BED . A/O X1-2 AND ABLE TO MOUTH SOME WORDS. ON MECH VENT WELL TOLERATING VENT SETTINGS WELL. PT ON TELE-AFLUTTER . IV RIGHT AC CLEAN TKO, DRY AND INTACT NOTED RIGHT HAND SWELLING. PT HAS CLEVE PAGE FOR DIALYSIS - CATH REMAINS CLEAN AND DRY. GTUBE FEEDING IN PLACE- NO RESIDUALS NOTED. HOB ELEVATED AND ON ASPIRATION PRECAUTIONS. CONTACT ISOLATION PRECAUTIONS OBSERVED AND FOLLOWED. RN ENDORSE TO AM SHANTI.
--- NOTE | 2017-05-26 07:30 | NUR ---
SONG LYRICIST AM NOTES RECEIVED PT IN BED, A/O X1-2 AND ABLE TO MOUTH SOME WORDS. ON SHILEY 6 TO MECH VENT, VENT SETTINGS ORDERED AND WELL TOLERATED. RESPIRATION EQUAL AND UNLABORED. TELEMETRY READS A FLUTTER HR 62, NO SIGNS OF PAIN OR DISCOMFORT, RT CAMILO POON FOR HD. CDI DRESSING. RT AC G 18, FLUSHES WELL, SITE CLEAR, G TUBE FEEDING NOVASOURCE 25ML/HR IN PLACE AND TOLERATED WELL- 0 RESIDUALS. HOB ELEVATED AND ON ASPIRATION PRECAUTIONS. CONTACT ISOLATION PRECAUTIONS OBSERVED AND FOLLOWED.SEE NURSING FLOWSHEET FOR SKIN ISSUES. WILL CONTINUE TO MONITOR.
[2017-05-26] MEDS: FAMOTIDINE (20 MG) 20 MG TABLET GT SCH (08:41)
[2017-05-26] MEDS: FOLIC ACID 1 MG TABLET GT SCH (08:41)
[2017-05-26] MEDS: ACIDOPHILUS/BULGARICUS 1 EACH TAB.CHEW GT SCH ×2 (08:41→17:22)
[2017-05-26] MEDS: OLANZAPINE 2.5 MG TABLET GT SCH ×2 (08:41→17:22)
[2017-05-26] MEDS: SULFAMETHOXAZOLE/TRIMETHOPRIM 10 ML in IV D5W 250 ML IV SCH ×2 (08:42→20:48)
[2017-05-26] MEDS: AMIODARONE HCL 200 MG TABLET GT SCH ×2 (08:42→17:00)
[2017-05-26] MEDS: Z GUARD REMEDY 2 OZ OINT TP SCH (08:45)
[2017-05-26] MEDS: PROSOURCE / PROSTAT (PYXIS) 30 ML UDC GT SCH ×2 (08:46→17:23)
[2017-05-26] MEDS: MUPIROCIN OINT 2% 22 GM TUBE SCH ×2 (08:47→20:48)
--- NOTE | 2017-05-26 09:30 | NUR ---
UX DEVELOPER NOTES DUE MEDS GIVEN 0842 - STARTED BACTRIM IV
--- NOTE | 2017-05-26 12:07 | NUR ---
REMOTE MEDICAL CODER NOTES BLOOD SUGAR 133 MG/DL. NO INSULIN GIVEN PATIENT SEEN BY NADEGE MEJIA RE SACRAL WOUND, UNSTAGEABLE. PICTURE TAKEN. WILL NEED DEBRIDEMENT.
[2017-05-26] MEDS: CADEXOMER IODINE 40 GM TUBE TP SCH ×2 (13:28→20:49)
--- NOTE | 2017-05-26 13:28 | NUR ---
FEED BLENDER NOTES PERFORMED PM CARE AND PRESCRIBED WOUND TREATMENT TO SACROCOCCYGEAL WOUND. PATIENT TRANSFERRED FROM ISOFLEX BED TO BED WITH [employer] 1ST STEP. INSTRUCTED SUPERVISOR REWORK NOT TO PUT ANY DIAPER. WILL CONTINUE TO TURN AND REPOSITION Q 2 HOURS. FOR WOUND DEBRIDEMENT C/O DR. TOLENTINO/Dany MEJIA NP.
[2017-05-26] MEDS: HYDROGEL DRESSING 90 GM TUBE TP PRN (17:23)
--- NOTE | 2017-05-26 17:33 | NUR ---
RENOVATION PLANT SUPERVISOR NOTES ACCUCECHECK DONE. BS 118 MG/DL. NO INSULIN COVERAGE AT THIS TIME.
[2017-05-26] MEDS: CHOLESTYRAMINE/ASPARTAME 4 G/PKT PACKET PO SCH (18:02)
--- NOTE | 2017-05-26 18:31 | NUR ---
PRE K SPECIAL EDUCATION TEACHER CLOSING NOTES PT RESTING COMFORTABLY, A/O X1-2 AND ABLE TO MOUTH SOME WORDS. AT BEDSIDE, ON SHILEY 6 TO MECH VENT, VENT SETTINGS ORDERED AND WELL TOLERATED. RESPIRATION EQUAL AND UNLABORED. TELEMETRY READS A FLUTTER HR 64, NO SIGNS OF PAIN OR DISCOMFORT, RT CAMILO POON FOR HD. CDI DRESSING. RT AC G 18, FLUSHES WELL, SITE CLEAR, G TUBE FEEDING NOVASOURCE 25ML/HR IN PLACE AND TOLERATED WELL- 0 RESIDUALS. HOB ELEVATED AND ON ASPIRATION PRECAUTIONS. CONTACT ISOLATION PRECAUTIONS OBSERVED AND FOLLOWED. TURNED AND REPOSITIONED Q 2HOURS. PM CARE DONE AND PRESCRIBED WOUND TREATMENT DONE. CONSENT SIGNED FOR WOUND DEBRIDEMENT. ALL NEEDS MET AT THIS TIME. NO OTHER SIGNIFICANT CHANGE IN CONDITION. WILL ENDORSE TO NEXT SHIFT FOR HANNAH.
[2017-05-27] VITALS (7 sets, daily range): BP systolic 95–134; BP diastolic 45–64
[2017-05-27] MEDS: INSULIN ASPART/LISPRO 100 UNIT/ML CARTRIDGE SQ PRN ×2 (00:13→05:42)
[2017-05-27] MEDS: BLOOD SUGAR DIAGNOSTIC 1 EACH STRIP IN SCH ×4 (00:13→18:10)
[2017-05-27] MEDS: VANCOMYCIN HCL 125 MG/2.5 ML ORAL.SUSP PO SCH ×4 (00:24→18:10)
[2017-05-27] MEDS: ALBUTEROL FS 2.5 MG/0.5 ML VIAL.NEB NEB SCH ×4 (02:09→19:30)
--- NOTE | 2017-05-27 07:20 | NUR ---
COMMERCIAL DESIGNER NOTES RECEIVED PT ON BED. ALERT ORIENTED X1. ON TELE MONITOR FLUTTER 60S. ON [facility] VENT SETTING SATURATING AND TOLERATING WELL. IV ACCESS ON [place] SL. HEAD OF BED ELEVATED. CALL LIGHT WITHIN REACH. BED ALARM ON. WILL CONTINUE TO MONITOR PT CLOSELY.
--- NOTE | 2017-05-27 08:03 | NUR ---
WEFT STRAIGHTENER NOTES PT NOT GIVEN AMIODARONE PT GOING TO DIALYSIS.
[2017-05-27] MEDS: PROSOURCE / PROSTAT (PYXIS) 30 ML UDC GT SCH ×2 (09:00→18:08)
[2017-05-27] MEDS: MUPIROCIN OINT 2% 22 GM TUBE SCH (09:00)
[2017-05-27] MEDS: AMIODARONE HCL 200 MG TABLET GT SCH ×2 (09:00→18:07)
[2017-05-27] MEDS: Z GUARD REMEDY 2 OZ OINT TP SCH (09:00)
--- NOTE | 2017-05-27 09:11 | NUR ---
INCLUSION INTERN NOTES PT MEDS GONNA BE GIVEN LATE PT IS ON DIALYSIS.
[2017-05-27] MEDS: SULFAMETHOXAZOLE/TRIMETHOPRIM 10 ML in IV D5W 250 ML IV SCH (11:00)
[2017-05-27] MEDS: ACIDOPHILUS/BULGARICUS 1 EACH TAB.CHEW GT SCH ×2 (11:00→18:07)
[2017-05-27] MEDS: OLANZAPINE 2.5 MG TABLET GT SCH ×2 (11:01→18:08)
[2017-05-27] MEDS: FOLIC ACID 1 MG TABLET GT SCH (11:01)
[2017-05-27] MEDS: FAMOTIDINE (20 MG) 20 MG TABLET GT SCH (11:02)
[2017-05-27] MEDS: CADEXOMER IODINE 40 GM TUBE TP SCH (11:03)
--- NOTE | 2017-05-27 12:02 | NUR ---
RT RECD PT TRACH ON ORDERED VENT SETTING KETAN WELL. TRACH INTACT AND SECURED. VENT PLUGGED IN RED OUTLET. ALARMS ON AND AUDIBLE. TX GIVEN KETAN WELL NO ADVERSE REACTION NOTED ATT. SX THICK YELLOW MODERATE SECRETIONS. NO RESP DISTRESS ATT WILL CONTINUE TO MONITOR
--- NOTE | 2017-05-27 15:06 | NUR ---
VP ORGANIZATIONAL DEVELOPMENT NOTES PT TRYING TO REMOVE GT. ORIENTED AND CLOSE MONITORING DONE.
[2017-05-27] MEDS: CHOLESTYRAMINE/ASPARTAME 4 G/PKT PACKET PO SCH (18:07)
--- NOTE | 2017-05-27 19:50 | NUR ---
INFORMATION CLERK [employer]OM[employer]LE [employer]UB NOTES NO ACUTE CHANGES NOTE DURING THE SHIFT. PT FOR D/C GIVEN REPORT TO [facility]. DUE MEDS GIVEN. PROVIDED COMFORT AND SAFETY. WILL ENDORSE TO THE PM NURSE FOR HANNAH.
[2017-05-27] MEDS: LORAZEPAM 0.5 MG TABLET GT PRN (20:07)
--- NOTE | 2017-05-27 20:34 | NUR ---
MEDICAL CSR NOTES 19:15 RECEIVED REPORT FROM SHANTI PEREIRA DAY SHIFT. PATIENT TO BE DISCHARGE. 20:00 GIVEN REPORT TO AMBULANCE STAFF. 20:15 PATIENT LEFT VIA GURNEY WITH DAUGHTER. ALL BELONGINGS TAKEN. GTUBE FEEDING DISCONNECTED. GIVEN REPORT TO RAVENNA STAFF. DISCHARGE PAPER WORK AND INSTRUCTIONS GIVEN.
== END 2017-05-27 21:15 | disposition short-term general hospital (02) | DRG 870 ==
LOC: ER 15:20 → TELE-TD 19:58 → TELE1 05-07 10:11 → TELE-TD 05-14 11:51 → TELE1 05-15 10:02
PROVIDERS: ADMIT Internal Medicine; ATTEND Internal Medicine
PROC: 5A1955Z Respiratory Ventilation, Greater than 96 Consecutive Hours (ICD-10-PCS; principal; 2017-05-06)
PROC: 5A1D70Z Performance of Urinary Filtration, Intermittent, Less than 6 Hours Per Day (ICD-10-PCS; 2017-05-08)
PROC: 5A1D70Z Performance of Urinary Filtration, Intermittent, Less than 6 Hours Per Day (ICD-10-PCS; 2017-05-10)
PROC: 5A1D70Z Performance of Urinary Filtration, Intermittent, Less than 6 Hours Per Day (ICD-10-PCS; 2017-05-11)
PROC: 0JHD3XZ Insertion of Tunneled Vascular Access Device into Right Upper Arm Subcutaneous Tissue and Fascia, Percutaneous Approach (ICD-10-PCS; 2017-05-13)
PROC: 05HM33Z Insertion of Infusion Device into Right Internal Jugular Vein, Percutaneous Approach (ICD-10-PCS; 2017-05-13)
PROC: B543ZZA Ultrasonography of Right Jugular Veins, Guidance (ICD-10-PCS; 2017-05-13)
PROC: 5A1D70Z Performance of Urinary Filtration, Intermittent, Less than 6 Hours Per Day (ICD-10-PCS; 2017-05-14)
PROC: 5A1D70Z Performance of Urinary Filtration, Intermittent, Less than 6 Hours Per Day (ICD-10-PCS; 2017-05-15)
PROC: 5A1D70Z Performance of Urinary Filtration, Intermittent, Less than 6 Hours Per Day (ICD-10-PCS; 2017-05-17)
PROC: 5A1D70Z Performance of Urinary Filtration, Intermittent, Less than 6 Hours Per Day (ICD-10-PCS; 2017-05-19)
PROC: 5A1D70Z Performance of Urinary Filtration, Intermittent, Less than 6 Hours Per Day (ICD-10-PCS; 2017-05-21)
PROC: 5A1D70Z Performance of Urinary Filtration, Intermittent, Less than 6 Hours Per Day (ICD-10-PCS; 2017-05-24)
PROC: 0JHD3XZ Insertion of Tunneled Vascular Access Device into Right Upper Arm Subcutaneous Tissue and Fascia, Percutaneous Approach (ICD-10-PCS; 2017-05-24)
PROC: 05HM33Z Insertion of Infusion Device into Right Internal Jugular Vein, Percutaneous Approach (ICD-10-PCS; 2017-05-24)
PROC: B513YZA Fluoroscopy of Right Jugular Veins using Other Contrast, Guidance (ICD-10-PCS; 2017-05-24)
PROC: 5A1D70Z Performance of Urinary Filtration, Intermittent, Less than 6 Hours Per Day (ICD-10-PCS; 2017-05-25)
PROC: 5A1D70Z Performance of Urinary Filtration, Intermittent, Less than 6 Hours Per Day (ICD-10-PCS; 2017-05-27)
DX: A41.02 Sepsis due to Methicillin resistant Staphylococcus aureus (principal); I21.A1 Myocardial infarction type 2; I13.2 Hypertensive heart and chronic kidney disease with heart failure and with stage 5 chronic kidney disease, or end stage renal disease; Z99.11 Dependence on respirator [ventilator] status; G93.40 Encephalopathy, unspecified; A04.72 Enterocolitis due to Clostridium difficile, not specified as recurrent; E46 Unspecified protein-calorie malnutrition; J18.9 Pneumonia, unspecified organism; J96.11 Chronic respiratory failure with hypoxia; N18.6 End stage renal disease; J44.0 Chronic obstructive pulmonary disease with (acute) lower respiratory infection; J44.1 Chronic obstructive pulmonary disease with (acute) exacerbation; I48.92 Unspecified atrial flutter; Z93.0 Tracheostomy status; E11.22 Type 2 diabetes mellitus with diabetic chronic kidney disease; I11.0 Hypertensive heart disease with heart failure; I50.9 Heart failure, unspecified; R13.10 Dysphagia, unspecified; E87.6 Hypokalemia; K21.9 Gastro-esophageal reflux disease without esophagitis; Z99.2 Dependence on renal dialysis; Z93.1 Gastrostomy status; Z86.19 Personal history of other infectious and parasitic diseases; Z85.118 Personal history of other malignant neoplasm of bronchus and lung; K59.00 Constipation, unspecified; Z88.1 Allergy status to other antibiotic agents; Z79.4 Long term (current) use of insulin; Z79.899 Other long term (current) drug therapy; L98.9 Disorder of the skin and subcutaneous tissue, unspecified; S50.12XA Contusion of left forearm, initial encounter; X58.XXXA Exposure to other specified factors, initial encounter; Y92.9 Unspecified place or not applicable; L30.4 Erythema intertrigo; Y95 Nosocomial condition; I48.91 Unspecified atrial fibrillation; D63.1 Anemia in chronic kidney disease; E66.01 Morbid (severe) obesity due to excess calories; Z68.39 Body mass index [BMI] 39.0-39.9, adult
CPT/HCPCS: 31720; 36415; 36600; 71045-TC; 80048-TC; 80053-TC; 80076-TC; 82728-TC; 82947-TC; 82962-TC; 83540-TC; 83605-TC; 83735-TC; 84100-TC; 84439-TC; 84443-TC; 84484-TC; 85025-TC; 85027-TC; 85610-TC; 85730-TC; 86850-TC; 87040-TC; 87070-TC; 87081-TC; 90935-TC; 93307-TC; 94003-TC; 94760-TC; 94762-TC; 99082-TC; A4216; A4217; A4606; A4623; A6253; A6402; A6403; C1750; C1769; J0282; J0885; J1644; J1815; J2020; J2370; J2543; J2704; J3490; J7030; J7040; J7050; J7060; Q0162; Q9967; Z7610